=== PATIENT | female | born 1995 | race Caucasian/White ===

== ENCOUNTER → 2017-12-18 15:35 | Outpatient (CLI) | payer OTHER, SELFPAY ==
[2017-12-18 17:07] LABS: Follicle Stimulating Hormone 5.9 mIU/mL; Prolactin 6.6 ng/mL; Thyroid Stim Hormone (TSH) 1.62 uIU/mL (0.358-3.74)
[2017-12-21 14:16] LABS: DHEA Sulfate 295.6 ug/dL (110.0-431.7)
[2017-12-22 11:25] LABS: 17-Hydroxyprogesterone 40 ng/dL (.); Testosterone Free 2.5 pg/mL (0.0-4.2)
== END ==
PROVIDERS: Visit Provider Obstetrics & Gynecology
DX: N91.4 Secondary oligomenorrhea (principal)
CPT/HCPCS: 36415; 82627; 83001; 83498; 84146; 84402; 84443; 82626

== ENCOUNTER → 2018-09-03 10:56 | Outpatient (CLI) | payer OTHER, SELFPAY ==
[2018-09-03 10:04] VITALS: BMI 39.5
[2018-09-03 11:15] LABS: Absolute Lymphocyte Count 2.02 X10^3/ul (0.83-4.51); Absolute Neutrophil Count 5.1 X10^3/uL (2.0-7.7); Basophil# 0.02 X10^3/uL; Basophil% 0.3 % (0-1); Eosinophil# 0.16 X10^3/uL; Hematocrit 42.3 % (37-47); Lymphocyte # 2.02 X10^3/ul (4.0); Lymphocyte % 25.9 % (19-41); Mean Corp Hgb Conc 33.1 g/gl (32-36); Mean Corpuscular Volume 87.6 fL (81-99); Mean Platelet Vol. 10.4 fl (6.2-12.0); Monocyte# 0.51 X10^3/uL; Monocyte% 6.5 % (0-10); Neutrophil # 5.09 X10^3/uL (2.7-7.7); Neutrophil % 65.2 % (47-70); POSITIVE COUNT NO; POSITIVE DIFFERENTIAL NO; POSITIVE MORPHOLOGY NO; Platelet Count 355 K/mm3 (150-450); RBC Distribution Width CV 12.9 % (11.6-14.6); RBC Distribution Width SD 41.5 fl (35.1-43.9); Red Blood Count 4.83 M/mm3 (4.2-5.4); White Blood Count 7.8 K/mm3 (4.4-11.0)
[2018-09-03 11:23] LABS: Glucose Challenge Gest 1H 50g 114 mg/dL (70-140)
[2018-09-03 12:36] LABS: HIV - WCH Non-Reactive (Nonreactive); Rubella IgG 141.9 IU/mL
[2018-09-03 20:47] LABS: Chlamydia Trachomatis by PCR Negative (Negative); Neisserai gonorrhoeae by PCR Negative (Negative); Probe Check PASS; Sample Adequacy Control PASS; Specimen Processing Control PASS
[2018-09-04 07:43] LABS: HEPATITIS B SURFACE AG Negative (Negative)
[2018-09-05 04:55] LABS: Rapid Plasmin Reagin (RPR) NONREACTIVE (NONREACTIVE)
[2018-09-09 10:30] LABS: HPV Reflexed? NOT INDICATED
--- OUTSIDE RECORDS SUMMARY | 2018-10-20 13:22 | XMS RPT_ITS ---
:1995 Author Organization OHIP Support Name Relationship Address Phone [employer] Unavailable [address] + [place] [address] CLARA SURESH Unavailable [address] + [address] [place] [address] HO QUACH Unavailable 0 + [place] [address] [employer] Unavailable [address] + [place] [address] CLARA SURESH Unavailable [address] + [address] [place] [address] PHILOMENA HO Unavailable 0 + [place] [address] SURESH ELIZABETH Unavailable Unavailable + [employer] Unavailable [address] + [place] [address] CLARA SURESH Unavailable [address] + [address] [place] [address] PHILOMENA HO Unavailable 0 + [place] [address] [employer] Unavailable [address] + [place] [address] CLARA SURESH Unavailable [address] + [address] [place] [address] PHILOMENA HO Unavailable 0 + [place] [address] [employer] Unavailable [address] [place] [address] CLARA SURESH Unavailable [address] + [address] [place] [address] [employer] Unavailable [address] [place] [address] CLARA SURESH Unavailable [address] + [address] [place] [address] [employer] Unavailable [address] [place] [address] SURESH ELIZABETH Unavailable [address] + [address] [place] [address] [employer] Unavailable [address] [place] [address] SURESH ELIZABETH Unavailable [address] + [address] [place] [address] Care Team Providers Name Role Phone Maria D Reagan Attending Unavailable DOCTOR, OUT OF TOWN Referring Unavailable KELIN HANNAH Primary Care Unavailable Maria D Reagan Attending Unavailable Hector, Maria D Referring Unavailable KELIN HANNAH Primary Care Unavailable Maria D Reagan Attending Unavailable DOCTOR, OUT OF TOWN Referring Unavailable KELIN HANNAH Primary Care Unavailable Hector, Maria D Attending Unavailable DOCTOR, OUT OF TOWN Referring Unavailable Maria D Reagan Attending Unavailable Hector, Maria D Referring Unavailable KELIN HANNAH Primary Care Unavailable Maria D Reagan Attending Unavailable DOCTOR, OUT OF TOWN Referring Unavailable Rohan Renteria Attending Unavailable DOCTOR, OUT OF TOWN Referring Unavailable Presleyanthony, Maria D Attending Unavailable DOCTOR, OUT OF TOWN Referring Unavailable TRILLJADYNSÁNCHEZ C (BUSINESS ADMINISTRATION PROFESSOR) Attending Unavailable TRILL, SÁNCHEZ C (BUSINESS ADMINISTRATION PROFESSOR) Referring Unavailable TRILL, SÁNCHEZ C (BUSINESS ADMINISTRATION PROFESSOR) Attending Unavailable TRILL, SÁNCHEZ C (BUSINESS ADMINISTRATION PROFESSOR) Referring Unavailable MARCANTHONY, MARIA D E Referring Unavailable TRILL, SÁNCHEZ C Primary Care Unavailable YOANA WILLINGHAM Attending Unavailable PROBLEMS PROBLEMS DATE TYPE CONDITION / CODE ATTENDING STATUS SOURCE 09/25/2018 Unknown J32.9 - Chronic Rohan Renteria Active [place] sinusitis, Community unspecified / Hospital J32.9(ICD-10) Repository 09/25/2018 Unknown J06.9 - Acute upper Rohan Renteria Active [place] respiratory Community infection, Hospital unspecified / Repository J06.9(ICD-10) 09/22/2018 Unknown Z3A.08 - 8 weeks Marcanthcisco, Active [place] gestation of Maria D Community / Hospital Z3A.08(ICD-10) Repository 09/12/2018 Active Other specified NA Active [facility] Other disorders of vagina / [place] N89.8(ICD-10) Repository 09/12/2018 Active Candidiasis of vulva SÁNCHEZ BEGUM Active [place] and [facility] / [facility] ([facility]) Clinic Other B37.3(ICD-10) [place] Repository 09/04/2018 Unknown Z34.90 - Encounter Hector, Active [place] for supervision of [facility] normal , Hospital unspecified, Repository unspecified trimester / Z34.90(ICD-10) 09/03/2018 Unknown Z12.4 - Encounter for [place], Active [place] screening for [facility] malignant neoplasm of Hospital cervix / Repository Z12.4(ICD-10) 08/26/2018 Active Diarrhea, unspecified SÁNCHEZ BEGUM Active [facility] / R19.7(ICD-10) [facility] (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 Result Comment: This test was developed and its performance characteristics determined by [facility] ([facility] It has not been cleared or approved by the FDA. -[facility] is regulated under CLIA as qualified to perform high-complexity testing. This test is used for clinical purposes. It should not be regarded as inv estigational or for research. Performed By: #### GASPCR #### [facility] [address] [place], [place] [address] PROGRESS Observed: 09/28/2018 Status: COMPLETED Source: [place] 12:55 PM [facility] REPOSITORY HNO ID: [id number] Author: Kaelyn (Dakota) Farheen Service: (none) Author Type: Nurse Practitioner Type: Progress Notes Filed: 09/28/2018 1:19 PM Note Text: Subjective The history is provided by the patient. No hourly sign language interpreter was used. HPI Casie Elizabeth is a 23 year old female who presents today for CC of sore throat. This started 4 days ago. She is also having right ear pain and pressure. She also has nasal congestion. She is 8.4 weeks pregant. She has only used tylenol sparingly. 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 BP 122/76 Pulse 95 Temp 36.2 ?C (97.1 ?F) (Tympanic) Resp 16 Wt 100.7 kg (222 lb) SpO2 97% BMI 38.11 kg/m? Social History Marital status: Single Spouse name: Years of education: Number of children: Social History Main Topics Smoking status: Former Smoker Packs/day: 0.00 Years: 0.00 Quit date: 08/17/2018 Smokeless tobacco: Never Used Alcohol use: No Drug use: No PAST MEDICAL HISTORY Diagnosis Date - GERD (gastroesophageal reflux disease) - IBS (irritable bowel syndrome) 2016 Dr. Lake - Obesity I have confirmed and edited as necessary, the [facility] Review of Systems Constitutional: Negative for chills and fever. HENT: Negative for congestion, ear pain, sinus pain and sore throat. Respiratory: Negative for cough. Musculoskeletal: Negative for myalgias. Neurological: Negative for headaches. Objective Physical Exam Constitutional: She is well-developed, well-nourished, and in no distress. HENT: Head: Normocephalic and atraumatic. Right Ear: External ear and ear canal normal. Tympanic membrane is bulging. Tympanic membrane is not erythematous and not retracted. A middle ear effusion (serous) is present. Left Ear: Tympanic membrane and ear canal normal. Tympanic membrane is not erythematous, not retracted and not bulging. Nose: Mucosal edema and rhinorrhea present. Right sinus exhibits maxillary sinus tenderness and frontal sinus tenderness. Left sinus exhibits maxillary sinus tenderness and frontal sinus tenderness. Mouth/Throat: Uvula is midline and mucous membranes are normal. Oropharyngeal exudate (white), posterior oropharyngeal edema and posterior oropharyngeal erythema present. Pulmonary/Chest: Breath sounds normal. She has no decreased breath sounds. She has no wheezes. She has no rhonchi. She has no rales. Lymphadenopathy: Head (right side): No submental, no submandibular and no tonsillar adenopathy present. Head (left side): No submental, no submandibular and no tonsillar adenopathy present. She has cervical adenopathy. Right cervical: Superficial cervical adenopathy present. Left cervical: Superficial cervical adenopathy present. Neurological: She is alert. Skin: Skin is warm and dry. Psychiatric: Affect normal. Nursing note and vitals reviewed. ASSESSMENT/PLAN: 1. URI, acute - ICD9: 465.9, ICD10: J06.9 (primary diagnosis) - Discussed viral etiology and rationale for treatment. Rest, increase water intake Tylenol as needed for fever or pain. Salt water gargles, chloraseptic spray or lozenges as needed for sore throat. Nasal saline spray as needed Cool mist humidifier at night Flonase or Nasonex 1 spray each nostril two times a day. Call OB in the am for medication list she wants you to use. 2. Sore throat - ICD9: 462, ICD10: J02.9 - suspect viral, Only call if Strep culture is positive. - Rapid Strep negative in the office today - overnight throat culture pending - Discussed supportive care treatment with fluids, rest and analgesia. - The patient may also use warm salt water gargles, throat lozenges and/or OTC throat spray as needed. - The patient should follow up in one week if symptoms persist or worsen - Call back if drooling, increased temperature, symptoms of dehydration and/or still sick in one week - RAPID STREP TEST B/O - GROUP A STREPTOCOCCUS BY PCR * Seek medical care immediately, call 911, go to ER if you have chest pain, difficulty breathing, shortness of breath, inability to swallow. Diagnosis and treatment plan were discussed and questions were answered to the patient's satisfaction. Pt acknowledged understanding of concepts and follow up plan. Specific signs and symptoms that would indicate the need for higher level of care were discussed in detail warranting prompt ER evaluation. Kaelyn Zhong APRN.BUSINESS ADMINISTRATION PROFESSOR CNOV Observed: 09/28/2018 Status: COMPLETED Source: [place] 12:30 PM [facility] REPOSITORY Office Visit (WSTR) CASIE ELIZABETH ([id number]) 1995 F Date Time Provider Department 09/28/18 12:30 PM KAELYN ZHONG (DAKOTA) [facility] During your visit today, we recorded the following information about you: Temperature Pulse Respiration Blood pressure 97.1 degrees 95/minute 16/minute 122/76 Weight 100.7 kg Kaelyn Zhong APRN.CNP 09/28/2018 1:19 PM Signed Subjective The history is provided by the patient. No hourly sign language interpreter was used. HPI Casie Elizabeth is a 23 year old female who presents today for CC of sore throat. This started 4 days ago. She is also having right ear pain and pressure. She also has nasal congestion. She is 8.4 weeks pregant. She has only used tylenol sparingly. 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 BP 122/76 Pulse 95 Temp 36.2 ?C (97.1 ?F) (Tympanic) Resp 16 Wt 100.7 kg (222 lb) SpO2 97% BMI 38.11 kg/m? Social History Marital status: Single Spouse name: Years of education: Number of children: Social History Main Topics Smoking status: Former Smoker Packs/day: 0.00 Years: 0.00 Quit date: 08/17/2018 Smokeless tobacco: Never Used Alcohol use: No Drug use: No PAST MEDICAL HISTORY Diagnosis Date - GERD (gastroesophageal reflux disease) - IBS (irritable bowel syndrome) 2016 Dr. Lake - Obesity I have confirmed and edited as necessary, the [facility] Review of Systems Constitutional: Negative for chills and fever. HENT: Negative for congestion, ear pain, sinus pain and sore throat. Respiratory: Negative for cough. Musculoskeletal: Negative for myalgias. Neurological: Negative for headaches. Objective Physical Exam Constitutional: She is well-developed, well-nourished, and in no distress. HENT: Head: Normocephalic and atraumatic. Right Ear: External ear and ear canal normal. Tympanic membrane is bulging. Tympanic membrane is not erythematous and not retracted. A middle ear effusion (serous) is present. Left Ear: Tympanic membrane and ear canal normal. Tympanic membrane is not erythematous, not retracted and not bulging. Nose: Mucosal edema and rhinorrhea present. Right sinus exhibits maxillary sinus tenderness and frontal sinus tenderness. Left sinus exhibits maxillary sinus tenderness and frontal sinus tenderness. Mouth/Throat: Uvula is midline and mucous membranes are normal. Oropharyngeal exudate (white), posterior oropharyngeal edema and posterior oropharyngeal erythema present. Pulmonary/Chest: Breath sounds normal. She has no decreased breath sounds. She has no wheezes. She has no rhonchi. She has no rales. Lymphadenopathy: Head (right side): No submental, no submandibular and no tonsillar adenopathy present. Head (left side): No submental, no submandibular and no tonsillar adenopathy present. She has cervical adenopathy. Right cervical: Superficial cervical adenopathy present. Left cervical: Superficial cervical adenopathy present. Neurological: She is alert. Skin: Skin is warm and dry. Psychiatric: Affect normal. Nursing note and vitals reviewed. ASSESSMENT/PLAN: 1. URI, acute - ICD9: 465.9, ICD10: J06.9 (primary diagnosis) - Discussed viral etiology and rationale for treatment. Rest, increase water intake Tylenol as needed for fever or pain. Salt water gargles, chloraseptic spray or lozenges as needed for sore throat. Nasal saline spray as needed Cool mist humidifier at night Flonase or Nasonex 1 spray each nostril two times a day. Call OB in the am for medication list she wants you to use. 2. Sore throat - ICD9: 462, ICD10: J02.9 - suspect viral, Only call if Strep culture is positive. - Rapid Strep negative in the office today - overnight throat culture pending - Discussed supportive care treatment with fluids, rest and analgesia. - The patient may also use warm salt water gargles, throat lozenges and/or OTC throat spray as needed. - The patient should follow up in one week if symptoms persist or worsen - Call back if drooling, increased temperature, symptoms of dehydration and/or still sick in one week - RAPID STREP TEST B/O - GROUP A STREPTOCOCCUS BY PCR * Seek medical care immediately, call 911, go to ER if you have chest pain, difficulty breathing, shortness of breath, inability to swallow. Diagnosis and treatment plan were discussed and questions were answered to the patient's satisfaction. Pt acknowledged understanding of concepts and follow up plan. Specific signs and symptoms that would indicate the need for higher level of care were discussed in detail warranting prompt ER evaluation. DANDY Sinclair APRN.CNP 09/28/2018 1:02 PM Signed ASSESSMENT/PLAN: 1. URI, acute - ICD9: 465.9, ICD10: J06.9 (primary diagnosis) - Discussed viral etiology and rationale for treatment. Rest, increase water intake Tylenol as needed for fever or pain. Salt water gargles, chloraseptic spray or lozenges as needed for sore throat. Nasal saline spray as needed Cool mist humidifier at night Flonase or Nasonex 1 spray each nostril two times a day. Call OB in the am for medication list she wants you to use. 2. Sore throat - ICD9: 462, ICD10: J02.9 - suspect viral, Only call if Strep culture is positive. - Rapid Strep negative in the office today - overnight throat culture pending - Discussed supportive care treatment with fluids, rest and analgesia. - The patient may also use warm salt water gargles, throat lozenges and/or OTC throat spray as needed. - The patient should follow up in one week if symptoms persist or worsen - Call back if drooling, increased temperature, symptoms of dehydration and/or still sick in one week - RAPID STREP TEST B/O - GROUP A STREPTOCOCCUS BY PCR * Seek medical care immediately, call 911, go to ER if you have chest pain, difficulty breathing, shortness of breath, inability to swallow. Referring Provider: SELF [200] Allergies As of Date: 09/28/2018 (No Known Allergies) Date Reviewed: 09/28/2018 Reviewed by: Kaelyn Zhong - Fully Assessed Reason for Visit: Fever [47] Primary Visit Diagnosis:URI, acute [J06.9] Other Visit Diagnosis:Sore throat [J02.9] Order(s):RAPID STREP TEST B/O [[id number]] Order #: [id number] GROUP A STREPTOCOCCUS BY PCR [SQGASPCR] Order #: [id number] Prescriptions as of 09/28/2018 Sig: VITAMIN ORAL Take by mouth once daily. Problem List As Of Date 09/28/2018 Noted Resolved Obesity [E66.9] GERD (gastroesophageal reflux disease) [K21.9] Lactose intolerance [E73.9] INVALID FOR* Other instructions from your clinician: ASSESSMENT/PLAN: 1. URI, acute - ICD9: 465.9, ICD10: J06.9 (primary diagnosis) - Discussed viral etiology and rationale for treatment. Rest, increase water intake Tylenol as needed for fever or pain. Salt water gargles, chloraseptic spray or lozenges as needed for sore throat. Nasal saline spray as needed Cool mist humidifier at night Flonase or Nasonex 1 spray each nostril two times a day. Call OB in the am for medication list she wants you to use. 2. Sore throat - ICD9: 462, ICD10: J02.9 - suspect viral, Only call if Strep culture is positive. - Rapid Strep negative in the office today - overnight throat culture pending - Discussed supportive care treatment with fluids, rest and analgesia. - The patient may also use warm salt water gargles, throat lozenges and/or OTC throat spray as needed. - The patient should follow up in one week if symptoms persist or worsen - Call back if drooling, increased temperature, symptoms of dehydration and/or still sick in one week - RAPID STREP TEST B/O - GROUP A STREPTOCOCCUS BY PCR * Seek medical care immediately, call 911, go to ER if you have chest pain, difficulty breathing, shortness of breath, inability to swallow. Encounter Status:Closed by KAELYN ZHONG CNP on 09/28/18 URGENT CARE VISIT Observed: 09/25/2018 Status: F Source: [place] REPORT 4:54 PM [facility] REPOSITORY [facility] [address] [place] [address] OFFICE VISIT Date of Service: 09/25/18 MR#: [id number] Acct: [id number] Name: CASIE ELIZABETH Rep #: [id number] : 1995 Provider: Rohan SIDHU Age/Sex: 23/F Location: [facility] Status: Signed Intake Intake Visit Reasons: Sinus infection Chief Complaint: Possible sinus infection? 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 Details: CASIE ELIZABETH, is a 23 F who presents to the office today for initial evaluation approximately 2-3-day history of congestion/facial pressure and postnasal drip. No complaints of fever, chills, sweats, rash, cough, chest pain/shortness of breath. Patient is a non-smoker, is currently , and notes no other members in household with similar complaints. She has taken wrkq-cjn-ohqckui products with the exception of Tylenol to assist with symptoms. She notes no other associated symptoms and no other alleviating or aggravating factors. ROS Const Constitutional: No other (ROS negative x10 other than as noted above) Exam Const General: cooperative, healthy appearing, no acute distress, comfortable Nutritional Appearance: obese Orientation: alert, awake, oriented x3 HENMT Head: normal to inspection Ears: hearing grossly normal bilaterally, external ears normal, TM's normal bilaterally, EAC's normal Nose: external nose normal, nares normal, septum normal, nasal discharge clear Face and sinus: normal facial exam, sinuses nontender, face symmetric Mouth: tongue normal, lip normal, oral mucosae normal Teeth and gingiva: dentition normal, gingiva normal Throat: uvula midline, tonsils normal, posterior oropharynx normal, no postnasal drainage Eyes General: appearance normal, both eyes and all related structures Neck Neck: normal visual inspection, full ROM, no lymphadenopathy, no meningeal signs, supple Neck mass: No Thyroid: thyroid normal Lymphatic: no lymphadenopathy noted Chest Chest palpation AND inspection: normal inspection of the chest Resp Effort AND Inspection: normal respiratory effort, able to speak in complete sentences, symmetric chest movement, no cough Auscultation: Bilateral: Clear to Auscultation Cardio Palpation: normal PMI Rate: regular rate Rhythm: regular rhythm Heart Sounds: S1 normal, S2 normal, no gallops, no murmurs, no rubs Pulses: radial pulses present GI Inspection: normal to inspection Palpation: soft, no hepatosplenomegaly Skin General: no rashes or lesions noted Neuro General: alert, awake, oriented x3, gait normal Cognition: normal cognition Speech: speech normal Gait: normal gait Motor: muscle tone normal throughout Sensory Exam: no sensory deficits noted Psych Appearance: grossly normal Mental Status: mental status grossly normal Mood: congruent mood Affect: normal affect Speech and Movement: speech and movement normal Attitude: cooperative Thought Process: normal Thought Content: normal Judgment: judgment good Assessment AND Plan 1. Sinusitis J32.9 2. URI (upper respiratory infection) J06.9 Plan Clear fluids, rest, Tylenol as needed for symptomatic relief. Follow-up with PCP in 10-14 days should symptoms not improve, sooner should symptoms worsen or any other concerns develop. Patient states acknowledging understanding all the above. This note was generated with LookTrackeration software. It may contain incorrect words, spelling, and punctuation that were not noted in checking the note before signing. 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 [place] [address] OFFICE VISIT Date of Service: 09/22/18 MR#: [id number] Acct: [id number] Name: CASIE ELIZABETH Rep #: [id number] : 1995 Provider: Maria D Reagan MD Age/Sex: 23/F Location: [facility] [place] Status: Signed Intake Vital Signs09/22/18 Body Mass Index (BMI) 39.5 09/22/18 Height 5 ft 4 in 09/22/18 Weight: 226 lb 09/22/18 Body Mass Index (BMI) 38.7 09/22/18 Blood Pressure 114/66 Intake Visit Reasons: 8 weeks Supervisor [employer] Required: No Is patient in pain?: No Allergies No Known Allergies Allergy (Verified 09/22/18 12:31) Medications vitamin#30 30 mg iron-10 mg iron-folic acid 1 mg- omg3 capsule cap PO cap 09/03/18 [History Confirmed 09/22/18] Last Menstral Period: 07/11/18 Zika: Zika virus screening: Negative : No PFSH PFSH Social History Smoking Status: Light Smoker (<10/day) alcohol intake: never details: social substance use type: does not use caffeine: Yes what type of physical activity do you participate in: none seatbelt use: always do you feel safe at home: Yes additional social history: 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 OB Visit [facility] Calculator Estimated Delivery Date Based on Ultrasound Date Current WG 10w 3d Number 1 Expected Delivery Route/Plan Specific Issue/Plans flu vaccine: given tdap vaccine: [] rhogam: [] LARC form signed: [] labor support person: [] pain management: [] cut cord/dad catch: [] : [] PP control planned: [] discussed possible routes of delivery and associated risks: [] special requests: [] Initial Weight: Not Recorded Date Weight BP Urine PrFHR FuHt Pres MoCTX DilationFetal StVisit NoProviderComments E ot v te GA G Effac lucose ed ACOG First Trimester First Trimester: Discussed Diagnostics Diagnostics Labs Blood Type A POSITIVE 09/03/18 Antibody Screen NEGATIVE 09/03/18 Hct 42.3 % (37-47) 09/03/18 Hgb 14.0 g/dl (12.0-15.0) 09/03/18 Rubella IgG Antibody 141.9 IU/mL 09/03/18 RPR NONREACTIVE (NONREACTIVE) 09/03/18 Hep Bs Antigen Negative (Negative) 09/03/18 Chlam trachomat DNA PCR Negative (Negative) 09/03/18 N.gonorrhoeae DNA (PCR) Negative (Negative) 09/03/18 Glucose 1 Hr 50 gm 114 mg/dL (70-140) 09/03/18 Details: HIV: Urine Culture: Sequential Screen: NIPT Screen: Results [id number] Office Urine Glucose Negative Last Edit by Monica Godfrey on 09/22/18 12:30 Office Urine Protein Negative Last Edit by Monica Godfrey on 09/22/18 12:30 Assessment AND Plan Problems 1. 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 Obesity affecting in first trimester O99.211 1 tm glucola, discussed healthy weight gain 3. Supervision of high risk , antepartum O09.90 MADISON Suresh 4. 8 weeks gestation of Z3A.08 genetic, ntd, and carrier screening discussed. Plan ACOG trimester education reviewed and updated. see problem list details for updated plan management information and see below for orders placed at this visit. GA appropriate handout given. 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 Trimester: first trimester Obesity affecting in first trimester O99.211 Trimester: first trimester Supervision of high risk , antepartum O09.90 8 weeks gestation of Z3A.08 Weeks of gestation: 8 weeks 09/22/18 1339 <Electronically signed by Maria D Reagan MD> Date Maria D Reagan MD Cosigner Signature: Date (if applicable) CC: RAPID BACT.VAGINOSIS Collected: 09/12/2018 Status: F Source: [facility] 12:00 PM [facility] REPOSITORY TYPE CODE TESTS RESULT OUT OF RANGE REFERENCE UNITS LAB RAPBV(LOINC ) Rapid see below Bact.Vaginos is Result Comment: Negative for the presence of bacterial vaginosis. Performed By: #### RAPBV #### [facility] [address] [place], [place] [address] Observed: 09/12/2018 Status: F Source: [facility] CULT FUNGAL 12:00 PM HEALTH SYSTEM REPOSITORY Test performed at [facility] ORGANISM: Edilma albicans (ID: 1) Moderate Performed By: #### C_FUN #### [facility] [address] [place], [place] [address] PROGRESS Observed: 09/12/2018 Status: COMPLETED Source: [facility] 11:59 AM [facility] REPOSITORY HNO ID: [id number] Author: Sánchez Herrera (Election Assistant) Caitlin Service: (none) Author Type: Nurse Practitioner Type: Progress Notes Filed: 09/22/2018 2:00 PM Note Text: Subjective HPI Casie Elizabeth is a 23 year old female here today for vaginal discharge and itching. I reviewed past medical, surgical, social, and family histories today and updated chart. Allergies, chronic medications, and supplements were also reviewed. Vaginal discharge - looks clear Always wet down there Pee is bright yellow Vaginal itching Randomly has vaginal pain, sharp pain for 5-10 seconds Cramping Feeling nauseated Currently Dr. Reagan - SHAREPOINT DEVELOPER Review of Systems Constitutional: Negative for chills, diaphoresis, fever and malaise/fatigue. Gastrointestinal: Positive for abdominal pain and nausea. Negative for constipation, diarrhea and vomiting. Genitourinary: Negative for dysuria, flank pain, frequency, hematuria and urgency. Skin: Positive for itching. Neurological: Negative for dizziness, weakness and headaches. BP 94/68 Pulse 66 Temp 36.8 ?C (98.3 ?F) (Oral) Resp 16 Wt 96.8 kg (213 lb 6.4 oz) BMI 36.63 kg/m? Objective Physical Exam Constitutional: She is oriented to person, place, and time and well-developed, well-nourished, and in no distress. She appears not jaundiced. Non-toxic appearance. HENT: Head: Normocephalic and atraumatic. Hair is normal. Right Ear: External ear normal. Left Ear: External ear normal. Nose: Nose normal. Mouth/Throat: Oropharynx is clear and moist and mucous membranes are normal. Eyes: Pupils are equal, round, and reactive to light. Conjunctivae and lids are normal. Neck: Normal range of motion. Neck supple. Cardiovascular: Normal rate, regular rhythm, normal heart sounds and intact distal pulses. Pulmonary/Chest: Effort normal and breath sounds normal. Genitourinary: Vulva exhibits erythema (mild). Vulva exhibits no exudate, no lesion and no rash. Thin white and vaginal discharge found. Musculoskeletal: Normal range of motion. Lymphadenopathy: She has no cervical adenopathy. Neurological: She is alert and oriented to person, place, and time. Gait normal. Skin: Skin is warm and dry. No rash noted. She is not diaphoretic. No cyanosis or erythema. No pallor. Nails show no clubbing. Psychiatric: Memory, affect and judgment normal. ASSESSMENT/PLAN: 1. Candidal vaginitis - ICD9: 112.1, ICD10: B37.3 (primary diagnosis) Clinical diagnosis, vaginal swabs pending Treat with topical miconazole 2% cream, nightly x 7 days Return to your SHAREPOINT DEVELOPER for worsening/persistent symptoms 2. Vaginal discharge - ICD9: 623.5, ICD10: N89.8 Vaginal swabs obtained - RAPID BACT VAGINOSIS - ORGANISM ID YEAST (LAB USE ONL Sánchez Begum APRN.DAKOTA CNOV Observed: 09/12/2018 Status: COMPLETED Source: [facility] 11:40 AM [facility] REPOSITORY Office Visit (MARIVEL) CASIE ELIZABETH ([id number]) 1995 F Date Time Provider Department 09/12/18 11:40 AM SÁNCHEZ BEGUM (DAKOTA) MARIVEL During your visit today, we recorded the following information about you: Temperature Pulse Respiration Blood pressure 98.3 degrees 66/minute 16/minute 94/68 Weight 96.8 kg Riccardo Price CMA 09/12/2018 11:56 AM Addendum Patient complains of vaginal itching/burning started 1+ weeks ago. No fever. CELSO Malagon APRN.BUSINESS ADMINISTRATION PROFESSOR 09/22/2018 2:00 PM Signed Subjective HPI Casie Elizabeth is a 23 year old female here today for vaginal discharge and itching. I reviewed past medical, surgical, social, and family histories today and updated chart. Allergies, chronic medications, and supplements were also reviewed. Vaginal discharge - looks clear Always wet down there Pee is bright yellow Vaginal itching Randomly has vaginal pain, sharp pain for 5-10 seconds Cramping Feeling nauseated Currently Dr. Reagan - SHAREPOINT DEVELOPER Review of Systems Constitutional: Negative for chills, diaphoresis, fever and malaise/fatigue. Gastrointestinal: Positive for abdominal pain and nausea. Negative for constipation, diarrhea and vomiting. Genitourinary: Negative for dysuria, flank pain, frequency, hematuria and urgency. Skin: Positive for itching. Neurological: Negative for dizziness, weakness and headaches. BP 94/68 Pulse 66 Temp 36.8 ?C (98.3 ?F) (Oral) Resp 16 Wt 96.8 kg (213 lb 6.4 oz) BMI 36.63 kg/m? Objective Physical Exam Constitutional: She is oriented to person, place, and time and well-developed, well-nourished, and in no distress. She appears not jaundiced. Non-toxic appearance. HENT: Head: Normocephalic and atraumatic. Hair is normal. Right Ear: External ear normal. Left Ear: External ear normal. Nose: Nose normal. Mouth/Throat: Oropharynx is clear and moist and mucous membranes are normal. Eyes: Pupils are equal, round, and reactive to light. Conjunctivae and lids are normal. Neck: Normal range of motion. Neck supple. Cardiovascular: Normal rate, regular rhythm, normal heart sounds and intact distal pulses. Pulmonary/Chest: Effort normal and breath sounds normal. Genitourinary: Vulva exhibits erythema (mild). Vulva exhibits no exudate, no lesion and no rash. Thin white and vaginal discharge found. Musculoskeletal: Normal range of motion. Lymphadenopathy: She has no cervical adenopathy. Neurological: She is alert and oriented to person, place, and time. Gait normal. Skin: Skin is warm and dry. No rash noted. She is not diaphoretic. No cyanosis or erythema. No pallor. Nails show no clubbing. Psychiatric: Memory, affect and judgment normal. ASSESSMENT/PLAN: 1. Candidal vaginitis - ICD9: 112.1, ICD10: B37.3 (primary diagnosis) Clinical diagnosis, vaginal swabs pending Treat with topical miconazole 2% cream, nightly x 7 days Return to your SHAREPOINT DEVELOPER for worsening/persistent symptoms 2. Vaginal discharge - ICD9: 623.5, ICD10: N89.8 Vaginal swabs obtained - RAPID BACT VAGINOSIS - ORGANISM ID YEAST (LAB USE ONL Sánchez Begum APRN.BUSINESS ADMINISTRATION PROFESSOR Referring Provider: SELF [200] Allergies As of Date: 09/12/2018 (No Known Allergies) Date Reviewed: 09/12/2018 Reviewed by: Riccardo Price - Fully Assessed Reason for Visit: Pain [78] Primary Visit Diagnosis:Candidal vaginitis [B37.3] Other Visit Diagnosis:Vaginal discharge [N89.8] Order(s):[] miconazole (MICONAZOLE 7) 2 % vaginal creamUse 1 Applicator vaginally daily at bedtime for 7 days.Disp: 45 gRfl: 0 RAPID BACT VAGINOSIS [[id number]] Order #: [id number] ORGANISM ID YEAST (LAB USE ONL [SQOIDYEA] Order #: [id number] Prescriptions as of 09/12/2018 Sig: VITAMIN ORAL Take by mouth once daily. MICONAZOLE NITRATE 2 % VAGINA* Use 1 Applicator vaginally da* Problem List As Of Date 09/12/2018 Noted Resolved Obesity [E66.9] GERD (gastroesophageal reflux disease) [K21.9] Lactose intolerance [E73.9] INVALID FOR* Visit Notes: >> Riccardo Price SatSep 12, 2018 11:48 AM Status: Addendum Patient complains of vaginal itching/burning started 1+ weeks ago. No fever. Riccardo Price CMA Prescriptions ordered this encounter Disp Refills Start End MICONAZOLE NITRATE 2 % VAGINAL CREAM 45 g 0 09/12/2018 09/19/2018 Route: VAGINAL Sig: Use 1 Applicator vaginally daily at bedtime for 7 days. Disposition: Return if symptoms worsen or fail to improve. Follow-up and Disposition History [place] [address] Dept Dept Sánchez Begum APRN.CNP [facility] -[address] [place] [id number] - - September 12, 2018 Casie Elizabeth [address] [place] [id number] 1995 To Whom It May Concern: This is to certify that Casie has been under my care and had appointment today. If you have further questions regarding this patient's health status, please contact our office. Sincerely, Sánchez Begum CNP (Signed electronically to expedite mailing) Encounter Status:Closed by SÁNCHEZ BEGUM CNP on 09/22/18 ROCKET MOTOR TESTER OFFICE VISIT Observed: 09/03/2018 Status: F Source: [facility] 11:17 PM [facility] REPOSITORY [facility] 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 [employer] Storage Required: No Is patient in pain?: No Allergies No Known Allergies Allergy (Verified 09/03/18 10:02) Medications vitamin#30 30 mg iron-10 mg iron-folic acid 1 mg- omg3 capsule cap PO cap 09/03/18 [History Confirmed 09/03/18] Last Menstral Period: 07/11/18 Zika: Zika virus screening: Negative : No PFSH PFSH Social History Smoking Status: Light Smoker (<10/day) alcohol intake: never details: social substance use type: does not use caffeine: Yes what type of physical activity do you participate in: none seatbelt use: always do you feel safe at home: Yes additional social history: 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 OB Visit Comments: Limited transvaginal ultrasound performed to confirm EDC and viability. CRL is not seen which is not consistent with LMP. no yolk sac present, gs measuring 6mm. questionable endocervical 1 cm cystic structure seen, no abnormal bloodflow around it. recommend further imaging by MFM to rule out abnormality Menstrual History Last Menstral Period: 07/11/18 Reported LMP: definite Normal amount/duration: Yes On hormonal BC at conception: No Antepartum Record Genetic Screening: Congenital Heart Defect: Other, Neural Tube Defect: Other, Hemoglobinopathy Or Carrier: Other, Cystic Fibrosis: Other, Chromosome Abnormality: Other, Andi-Sachs: Other, Hemophilia: Other, Intellectual Disability/Autism: Other, Recurrent Loss/Stillbirth: Partner, Other Structural Defect: Other, Other Genetic Disease: Other, Maternal Metabolic Disorder: Other Comments/Counseling: aunt born with CP, lost second cousin at Infection History: Live with someone with TB or Exposed to TB: No, Patient or Partner has history of Genital Herpes: No, Rash or Viral illness since last mentrual period: No, Prior GBS-Infected child: No, History of STD: No, HIV Infection: No, History of Hepatitis: No, Recent travel outside of [place]: No, Concern for Hep exposure: No, Varicella immune: Yes Medical History Medical History: Negative: Diabetes, Hypertension, Heart disease, Auto-immune disorder, Kidney disease/UTI, Neurologic/epilepsy, Psychiatric, Depression/ depression, Hepatitis/liver disease, Varicosities/phlebitis, Thyroid dysfunction, Trauma/domestic violence, History of blood transfusions, D (Rh) Sensitized, Pulmonary (e.g.,TB,Asthma), Seasonal allergies, Drug/latex allergies/reactions, Breast, Ski Lift Operator surgery, Operations/hospitalizations, Anesthetic complications, History of abnormal pap, Uterine anomaly/mariaelena, Infertility, Anti-retroviral treatment, Relevant family history, Other ACOG First Trimester First Trimester: Discussed ROS Const Denies fever(s), Reports system reviewed and no additional complaints, except as docu, Reports fatigue Eyes Reports system reviewed and no additional complaints, except as docu ENT Reports system reviewed and no additional complaints, except as docu Card Denies chest pain, Denies shortness of breath Resp Reports system reviewed and no additional complaints, except as docu, Denies shortness of breath, Denies cough GI Reports nausea, Denies abdominal pain Reports system reviewed and no additional complaints, except as docu Musc Reports system reviewed and no additional complaints, except as docu Skin/Breast Reports system reviewed and no additional complaints, except as docu Neuro Yes system reviewed and no additional complaints, except as docu Psych Reports system reviewed and no additional complaints, except as docu Endo Reports fatigue, Reports system reviewed and no additional complaints, except as docu Exam Const General: healthy appearing, comfortable, no acute distress Orientation: alert [facility] Head: normal to inspection, atraumatic, normocephalic Ears: external ears normal, hearing grossly normal bilaterally Nose: nares normal, external nose normal Mouth: oral mucosae normal Teeth and gingiva: dentition normal Eyes General: appearance normal, both eyes and all related structures Neck Neck: no lymphadenopathy, supple, normal visual inspection Thyroid: thyroid normal Resp Effort AND Inspection: normal respiratory effort GI Inspection: normal to inspection Palpation: soft, no hepatosplenomegaly General: bladder normal to palpation External Female Exam: normal external appearance, normal appearance of the urethra Urethra: normal appearance of the urethra Speculum Exam - Vagina: normal appearance of the vagina, normal vaginal discharge Speculum Exam - Cervix: normal appearance of the cervix Bimanual Exam- Vagina AND Uterus: bladder normal to palpation, normal bimanual exam, uterus non-tender, other Bimanual Exam- Adnexa, other: adnexae non-tender Skin General: no rashes or lesions noted Neuro Motor: muscle tone normal throughout, no movement abnormalities noted Extrem General: normal to inspection, full ROM Assessment AND Plan Problems 1. Obesity affecting in first trimester O99.211 1 tm glucola, discussed healthy weight gain 2. 8 weeks gestation of Z3A.08 genetic, ntd, and carrier screening discussed. 3. Supervision of high risk , antepartum O09.90 MADISON Suresh 4. 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 ACOG book offered to patient. Discussed routine and specially indicated labs if needed- patient consents to testing. see problem list details for plan information. Optional screening including carrier screenings, neural tube defect screening, sequential screening, and NIPT screening offered to patient and patient chose: discussed and likely declines Orders Orders: Supplemental Info ACOG book given and patient encouraged to read about nutrition, exercise, weight gain, and food avoidance in . 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 O09.01 Trimester: first trimester 09/03/18 2317 <Electronically signed by Maria D Reagan MD> Date Maria D Reagan MD Cosigner Signature: Date (if applicable) CC: CBC W/DIFF, AUTOMATED Collected: 09/03/2018 Status: F Source: [facility] 11:04 AM [facility] REPOSITORY TYPE CODE TESTS RESULT OUT OF RANGE REFERENCE UNITS LAB L100.1000 4.4-11.0 K/mm3 Normal WBC 7.8 LAB L100.1200 4.2-5.4 M/mm3 Normal RBC 4.83 LAB L100.1300 12.0-15.0 g/dl Normal HGB 14.0 LAB L100.1400 37-47 % Normal HCT 42.3 LAB L100.1500 81-99 fL Normal MCV 87.6 LAB L100.1600 27.0-32.0 pg Normal MCH 29.0 LAB L100.1700 32-36 g/gl Normal MCHC 33.1 LAB L100.1810 11.6-14.6 % Normal RDW CV 12.9 LAB L100.1820 35.1-43.9 fl Normal RDW SD 41.5 LAB L100.1900 150-450 K/mm3 Normal PLT 355 LAB L100.2000 6.2-12.0 fl Normal MPV 10.4 LAB L100.2100 47-70 % Normal NEUT% 65.2 LAB L100.2200 19-41 % Normal LY% 25.9 LAB L100.2300 0-10 % Normal MONO% 6.5 LAB L100.2400 0-5 % Normal EO% 2.0 LAB L100.2500 0-1 % Normal BASO% 0.3 LAB L100.2550 0.0-0.9 % Normal IM GRAN % 0.100 Result Comment: IG% - Immature Granulocytes (promyelocytes, myelocytes and metamyelocytes) > 1% indicates that a LEFT SHIFT is Present. LAB L100.2620 2.0-7.7 X10 3/uL Normal Absolute Neut 5.1 LAB L100.2720 0.83-4.51 X10 3/ul Normal Absolute Lymph 2.02 Performed By: #### L100.0100 #### [facility] [address] [facility] [place], [place], [id number] GLUCOSE CHALLENGE GEST Collected: 09/03/2018 Status: F Source: [facility] 1H 50G 11:04 AM [facility] REPOSITORY TYPE CODE TESTS RESULT OUT OF RANGE REFERENCE UNITS LAB L501.0250 70-140 mg/dL Normal GLU GEST 114 50g 1H Performed By: #### L501.0250 #### [facility] [address] [place], [place], [id number] TYPE AND SCREEN Collected: 09/03/2018 Status: F Source: [facility] 11:04 AM [facility] REPOSITORY Order Comment: Reason for Type AND Screen/Red Cells: TYPE CODE TESTS RESULT OUT OF RANGE REFERENCE UNITS LAB B10.0800 A Normal BLOOD TYPE GEL POSITIVE LAB B100.4000 Normal Antibody NEGATIVE Screen Performed By: #### B101.7450 #### [facility] [address] [place] [address] [place], [place], [id number] RUBELLA IGG Collected: 09/03/2018 Status: F Source: [facility] 11:04 AM [facility] REPOSITORY TYPE CODE TESTS RESULT OUT OF RANGE REFERENCE UNITS LAB L509.4000 IU/mL Normal Rubella IgG 141.9 Result Comment: Antibody results Interpretation of Immune Status < 5 IU/ml Presumed Non-immune 5 - < 10 IU/ml Equivocal > or = 10 IU/ml Presumed Immune Performed By: #### L509.4000, L3890.6005 #### [facility] [address] [place], [place], [address] HIV - [facility] Collected: 09/03/2018 Status: F Source: [facility] 11:04 AM [facility] REPOSITORY TYPE CODE TESTS RESULT OUT OF RANGE REFERENCE UNITS LAB L3890.6005 Nonreactive Normal HIV - [facility] Non-Reactive Performed By: #### L509.3999, L3890.6005 #### [facility] [place], [place], [id number] HEPATITIS B SURFACE Collected: 09/03/2018 Status: F Source: [facility] AG 11:04 AM [facility] REPOSITORY TYPE CODE TESTS RESULT OUT OF RANGE REFERENCE UNITS LAB L3100.0400 Negative Normal HB Negative SURF AG Result Comment: Performed at: [facility] [id number] Plumber Assistant: Carlos Lazar PhD, Phone: [phone] Performed By: #### L3100.0390 #### [facility] (refer to report for specific site) refer to report for address and phone number RAPID PLASMIN REAGIN Collected: 09/03/2018 Status: F Source: [facility] (RPR) 11:04 AM [facility] REPOSITORY TYPE CODE TESTS RESULT OUT OF REFERENCE UNITS RANGE LAB L700.5000 NONREACTIVE NONREACTIVE Normal RPR Performed By: #### L700.5000 #### [facility] [address] [place], [place], [id number] CT/NG [facility] BY PCR Collected: 09/03/2018 Status: F Source: [facility] 9:45 AM [facility] REPOSITORY TYPE CODE TESTS RESULT OUT OF RANGE REFERENCE UNITS LAB L8200.2100 Negative Normal Chlam Negative Trac PCR LAB L8200.2200 Negative Normal NG by Negative PCR Performed By: #### L8200.2000 #### [facility] [address] [place], [address] Observed: 09/03/2018 Status: F Source: [facility] CULTURE, URINE 9:45 AM [facility] REPOSITORY Urine Culture Below infection level. ORGANISM 1: Mixed Gram Positive Organisms [place]aque Count 1000-10,000 Performed By: #### M100.0650 #### [facility] [address] [place], [address] PAP I-G W/RFX Collected: 09/03/2018 Status: F Source: [facility] HRHPV-APTIMA 9:45 AM [facility] REPOSITORY Order Comment: CYTOLOGY INFORMATION: - CLINICAL INFORMATION: ANNUAL - DATE LMP/MENOPAUSE: N/A - COLLECTION VIAL: Thin Prep Vial - SHAREPOINT DEVELOPER SOURCE: CERVICAL - COLLECTION TECHNIQUE: CX BROOM ONLY Specimen Comment: [id number] Specimen Comment: Source.............Cervix Specimen Comment: No. of containers..01 ThinPrep Vial TYPE CODE TESTS RESULT OUT OF RANGE REFERENCE UNITS LAB L7400.0800 . Normal DIAGN Comment Result Comment: NEGATIVE FOR INTRAEPITHELIAL LESION AND MALIGNANCY. LAB L7400.0900 . Normal ADEQ Comment Result Comment: Satisfactory for evaluation. Endocervical and/or squamous metaplastic cells (endocervical component) are present. LAB L7400.1400 . Normal PERFORM Comment Result Comment: Jahaira Carroll, Spinner Open End (ASCP) LAB L7400.2575 . Normal TEST METHOD Comment Result Comment: This liquid based ThinPrep(R) pap test was screened with the use of an image guided system. LAB L7400.2600 . Normal . COMM LAB L7400.2700 . Normal PAPSMR Comment Result Comment: The Pap smear is a screening test designed to aid in the detection of premalignant and malignant conditions of the uterine cervix. It is not a diagnostic procedure and should not be used as the sole means of detecting cervical cancer. Both false-positive and false-negative reports do occur. LAB L7400.2800 . Normal HPV RFLX Comment Result Comment: The HPV DNA reflex criteria were not met with this specimen result therefore, no HPV testing was performed. Performed at: [address] [id number] Plumber Assistant: Sherrill Mcallister MD, Phone: [phone] Performed By: #### L7400.0353 #### [facility] (refer to report for specific site) refer to report for address and phone number HEMOGRAM/DIFF Collected: 08/26/2018 Status: F Source: [facility] 3:21 PM [facility] REPOSITORY TYPE CODE TESTS RESULT OUT OF REFERENCE UNITS RANGE LAB LWBC(LOINC 4.8-10.8 thou/cmm ) WBC High 12.4 LAB LRBC(LOINC 4.20-5.40 mil/cmm ) RBC 4.85 LAB LHGB(LOINC 12.0-16.0 g/dL ) Hgb 14.1 LAB LHCT(LOINC 37.0-47.0 % ) Hct 42.5 LAB LMCV(LOINC 81.0-99.0 fl ) MCV 87.6 LAB LMCH(LOINC 27.0-31.0 pg ) MCH 29.1 LAB LMCHC(LOIN 32.0-36.0 % C) MCHC 33.2 LAB LRDW(LOINC 11.5-15.9 % ) RDW 12.7 LAB LPLT(LOINC 150-400 thou/cmm ) Platelet 356 LAB LMPV(LOINC 7.1-10.5 fl ) MPV 10.4 LAB LSEGT(LOIN % C) Seg Neutrophil 68.7 LAB LLYMP(LOIN % C) Lymphocyte 24.3 LAB LMNO(LOINC % ) Monocyte 4.8 LAB DEISI(LOINC % ) Eosinophil 2.0 LAB LBASO(LOIN % C) Basophil 0.2 LAB LSEGN(LOIN 3.00-5.67 thou/cmm C) Abs. High Neut (ANC) 8.52 Result Comment: CORRECTED: Previous result = 8.51, verified at 15:38 on 08/26/18. LAB LLYMN(LOINC) 1.50-3.65 thou/cmm Abs. Lymph 3.01 LAB LMONN(LOINC) 0.20-1.00 thou/cmm Abs. [place] 0.60 LAB LEOSN(LOINC) 0.00-0.41 thou/cmm Abs. Eosin 0.25 LAB LBASN(LOINC) 0.00-0.08 thou/cmm Abs. Baso 0.02 Performed By: #### LCBCD #### [facility] [address] [place] [address] COMPREHENSIVE PANEL Collected: 08/26/2018 Status: F Source: [facility] 3:21 PM HEALTH SYSTEM REPOSITORY TYPE CODE TESTS RESULT OUT OF REFERENCE UNITS RANGE LAB TDP DISPLAYS ANALYST(LOINC) 136-145 mEq/L Low Sodium Blood 134 LAB LK(LOINC) 3.5-5.1 mEq/L Potassium Blood 3.5 LAB LCL(LOINC) 98-107 mEq/L Chloride Blood 107 LAB LCO2(LOINC 21-32 mEq/L ) CO2 Blood 27 LAB LGLU(LOINC 70-99 mg/dL ) Glucose High Blood 108 LAB LBUN(LOINC 7-25 mg/dL ) BUN Blood 9 LAB LCREA(LOIN 0.51-0.95 mg/dL C) Creatinine Blood 0.79 LAB LCA(LOINC) 8.5-10.1 mg/dL Calcium Blood 8.9 LAB LALB(LOINC 3.4-5.0 g/dL ) Albumin Blood 3.8 LAB LTP(LOINC) 6.4-8.2 g/dL Total Protein 7.4 LAB LAST(LOINC 15-37 U/L ) Low AST-SGOT Blood 13 LAB LALT(LOINC 14-63 U/L ) ALT-SGPT Blood 31 LAB LALKP(LOIN 46-116 U/L C) Alk Phosphatase 72 LAB LBILT(LOIN 0.2-1.0 mg/dL C) Total Bilirubin 0.3 LAB LANGP(LOIN 8-20 C) Low Anion Gap 3 LAB LBNCR(LOIN 10-20 C) BUN/Creatinine 11 Ratio Performed By: #### LP14 #### [facility] [address] [address] LIPASE BLOOD Collected: 08/26/2018 Status: F Source: [facility] 3:21 PM HEALTH SYSTEM REPOSITORY TYPE CODE TESTS RESULT OUT OF REFERENCE UNITS RANGE LAB LLIP(LOINC) 73-393 U/L Lipase Blood 88 Performed By: #### LLIP #### [facility] [address] [address] TSH Collected: 08/26/2018 Status: F Source: [facility] 3:21 PM HEALTH SYSTEM REPOSITORY TYPE CODE TESTS RESULT OUT OF RANGE REFERENCE UNITS LAB LTSH(LOINC) 0.34-4.82 uIU/mL TSH 1.08 Performed By: #### LTSH #### [facility] [address] [place], [place] [address] MDRD EGFR Collected: 08/26/2018 Status: F Source: [facility] 3:21 PM HEALTH SYSTEM REPOSITORY TYPE CODE TESTS RESULT OUT OF RANGE REFERENCE UNITS LAB LGFRF(LOINC >60mL/min/1.73m ) 2 eGFR >60 Result Comment: If the patient is , multiply the result by 1.210. Performed By: #### LGFR #### [facility] [address] [place], [place] [address] PROGRESS Observed: 08/26/2018 Status: COMPLETED Source: [facility] 2:52 PM [facility] REPOSITORY HNO ID: [id number] Author: Sánchez Herrera (Election Assistant) Caitlin Service: (none) Author Type: Nurse Practitioner Type: Progress Notes Filed: 09/02/2018 6:30 PM Note Text: Subjective HPI Casie Elizabeth is a 23 year old female here today for diarrhea, abdominal pain. I reviewed past medical, surgical, social, and family histories today and updated chart. Allergies, chronic medications, and supplements were also reviewed. Abdominal pain and diarrhea has been a chronic problem. Started years ago. She has lower abdominal cramping, diarrhea, and stool urgency. Becoming a problem at work. She was seeing Dr. Lake, GI specialist, in [place] for some time. Was on a few different medications and nothing seemed to help. Went dairy free for 6 months and no better. Stopped gluten and this helped a lot. Then came back about a month ago. And she is still gluten free. Never had colonoscopy. No blood in stool. She has been trying to get . Had positive test yesterday. Very excited. Last month - bad heartburn, breast tenderness PAST MEDICAL HISTORY Diagnosis Date - GERD (gastroesophageal reflux disease) - IBS (irritable bowel syndrome) 2016 Dr. Lake - Obesity PAST SURGICAL HISTORY Procedure Laterality Date - NONE ALLERGIES Patient has no known allergies. MEDICATIONS No prescriptions on file. FAMILY HISTORY Problem Relation Age of Onset - Breast Cancer Maternal Grandmother Social History Substance Use Topics - Smoking status: Current Every Day Smoker - Smokeless tobacco: Never Used - Alcohol use No Review of Systems Constitutional: Negative for chills, diaphoresis, fever, malaise/fatigue and weight loss. Respiratory: Negative for cough, shortness of breath and wheezing. Cardiovascular: Negative for chest pain, palpitations and leg swelling. Gastrointestinal: Positive for abdominal pain, blood in stool, diarrhea, heartburn and nausea. Negative for constipation and vomiting. Genitourinary: Positive for frequency. Negative for dysuria, hematuria and urgency. Musculoskeletal: Negative for back pain and myalgias. Skin: Negative for itching and rash. Neurological: Positive for headaches (Hisotry of migraines). Negative for dizziness and weakness. Psychiatric/Behavioral: Negative for depression. The patient is not nervous/anxious. BP 120/70 Pulse 100 Temp 36.7 ?C (98.1 ?F) Resp 16 Ht 162.6 cm (5' 4) Wt 105.4 kg (232 lb 6.4 oz) BMI 39.89 kg/m? Objective Physical Exam Constitutional: She is oriented to person, place, and time and well-developed, well-nourished, and in no distress. Non-toxic appearance. Cardiovascular: Normal rate, regular rhythm and normal heart sounds. No murmur heard. Pulmonary/Chest: Effort normal and breath sounds normal. She has no wheezes. She has no rales. Abdominal: Soft. Bowel sounds are normal. She exhibits no distension, no abdominal bruit and no mass. There is no hepatosplenomegaly. There is no tenderness. There is no CVA tenderness. Neurological: She is oriented to person, place, and time. She has normal motor skills and normal sensation. She displays no weakness. Gait normal. Skin: Skin is warm and dry. No bruising and no rash noted. Component Latest Ref Rng AND Units 08/26/2018 WBC 4.8 - 10.8 thou/cmm 12.4 (H) RBC 4.20 - 5.40 mil/cmm 4.85 HGB 12.0 - 16.0 g/dL 14.1 Hematocrit 37.0 - 47.0 % 42.5 MCV 81.0 - 99.0 fl 87.6 MCH 27.0 - 31.0 pg 29.1 MCHC 32.0 - 36.0 % 33.2 RDW 11.5 - 15.9 % 12.7 Platelet Count 150 - 400 thou/cmm 356 MPV 7.1 - 10.5 fl 10.4 Seg Neutrophil % 68.7 Lymphocyte % 24.3 Monocyte % 4.8 Eosinophil % 2.0 Basophil % 0.2 Abs. Neut(Anc) 3.00 - 5.67 thou/cmm 8.52 (H) Abs. Lymph 1.50 - 3.65 thou/cmm 3.01 Abs. [place] 0.20 - 1.00 thou/cmm 0.60 Abs. Eosin 0.00 - 0.41 thou/cmm 0.25 Abs. Baso 0.00 - 0.08 thou/cmm 0.02 Sodium 136 - 145 mEq/L 134 (L) Potassium 3.5 - 5.1 mEq/L 3.5 Chloride 98 - 107 mEq/L 107 CO2 21 - 32 mEq/L 27 Glucose 70 - 99 mg/dL 108 (H) BUN 7 - 25 mg/dL 9 Creatinine 0.51 - 0.95 mg/dL 0.79 Calcium 8.5 - 10.1 mg/dL 8.9 Albumin 3.4 - 5.0 g/dL 3.8 Protein, Total 6.4 - 8.2 g/dL 7.4 AST 15 - 37 U/L 13 (L) ALT 14 - 63 U/L 31 Alkaline Phosphatase 46 - 116 U/L 72 Bilirubin, Total 0.2 - 1.0 mg/dL 0.3 Anion Gap 8 - 20 3 (L) BUN/CREATININE RATIO 10 - 20 11 Lipase 73 - 393 U/L 88 TSH 0.34 - 4.82 uIU/mL 1.08 eGFR >60mL/min/1.73m2 >60 ASSESSMENT/PLAN: 1. Diarrhea, unspecified type - ICD9: 787.91, ICD10: R19.7 Labs WNL - elevated WBC likely related to being Check stool studies Would recommend GI follow-up and possibly further imaging/work up after Continue care with OB - CBC + DIFF - COMP METABOLIC PANEL - LIPASE BLD - TSH BLD - C. DIFFICILE PCR - FECAL OCCULT BLOOD TEST - OVA + PARA MICROSCOPIC - STOOL CULTURE/EIA US abdomen 10/18/15 = Normal Sánchez Begum, COMPUTER ENGINEERING PROFESSOR.BUSINESS ADMINISTRATION PROFESSOR CNOV Observed: 08/26/2018 Status: COMPLETED Source: [facility] 2:20 PM [facility] REPOSITORY Office Visit (AGFAMPLE) CASIE ELIZABETH ([id number]) 1995 F Date Time Provider Department 08/26/18 2:20 PM SÁNCHEZ BEGUM ([facility]) AGFAMPSTEFAN During your visit today, we recorded the following information about you: Temperature Pulse Respiration Blood pressure 98.1 degrees 100/minute 16/minute 120/70 Weight Height 105.4 kg 1.626 m Lupis Lui CMA 08/26/2018 2:48 PM Signed Abnormal BM, saw Dr Lake, tried 6 different medications, nothing was helping. Took OTC anti diarrhea medication, which helped a little. Just found out she was and can no longer take the OTC medicine she was taking. CELSO Toussaint, COMPUTER ENGINEERING PROFESSOR.[facility] 09/02/2018 6:30 PM Signed Subjective HPI Casie Elizabeth is a 23 year old female here today for diarrhea, abdominal pain. I reviewed past medical, surgical, social, and family histories today and updated chart. Allergies, chronic medications, and supplements were also reviewed. Abdominal pain and diarrhea has been a chronic problem. Started years ago. She has lower abdominal cramping, diarrhea, and stool urgency. Becoming a problem at work. She was seeing Dr. Lake, GI specialist, in [place] for some time. Was on a few different medications and nothing seemed to help. Went dairy free for 6 months and no better. Stopped gluten and this helped a lot. Then came back about a month ago. And she is still gluten free. Never had colonoscopy. No blood in stool. She has been trying to get . Had positive test yesterday. Very excited. Last month - bad heartburn, breast tenderness PAST MEDICAL HISTORY Diagnosis Date - GERD (gastroesophageal reflux disease) - IBS (irritable bowel syndrome) 2016 Dr. Lake - Obesity PAST SURGICAL HISTORY Procedure Laterality Date - NONE ALLERGIES Patient has no known allergies. MEDICATIONS No prescriptions on file. FAMILY HISTORY Problem Relation Age of Onset - Breast Cancer Maternal Grandmother Social History Substance Use Topics - Smoking status: Current Every Day Smoker - Smokeless tobacco: Never Used - Alcohol use No Review of Systems Constitutional: Negative for chills, diaphoresis, fever, malaise/fatigue and weight loss. Respiratory: Negative for cough, shortness of breath and wheezing. Cardiovascular: Negative for chest pain, palpitations and leg swelling. Gastrointestinal: Positive for abdominal pain, blood in stool, diarrhea, heartburn and nausea. Negative for constipation and vomiting. Genitourinary: Positive for frequency. Negative for dysuria, hematuria and urgency. Musculoskeletal: Negative for back pain and myalgias. Skin: Negative for itching and rash. Neurological: Positive for headaches (Hisotry of migraines). Negative for dizziness and weakness. Psychiatric/Behavioral: Negative for depression. The patient is not nervous/anxious. BP 120/70 Pulse 100 Temp 36.7 ?C (98.1 ?F) Resp 16 Ht 162.6 cm (5' 4) Wt 105.4 kg (232 lb 6.4 oz) BMI 39.89 kg/m? Objective Physical Exam Constitutional: She is oriented to person, place, and time and well-developed, well-nourished, and in no distress. Non-toxic appearance. Cardiovascular: Normal rate, regular rhythm and normal heart sounds. No murmur heard. Pulmonary/Chest: Effort normal and breath sounds normal. She has no wheezes. She has no rales. Abdominal: Soft. Bowel sounds are normal. She exhibits no distension, no abdominal bruit and no mass. There is no hepatosplenomegaly. There is no tenderness. There is no CVA tenderness. Neurological: She is oriented to person, place, and time. She has normal motor skills and normal sensation. She displays no weakness. Gait normal. Skin: Skin is warm and dry. No bruising and no rash noted. Component Latest Ref Rng AND Units 08/26/2018 WBC 4.8 - 10.8 thou/cmm 12.4 (H) RBC 4.20 - 5.40 mil/cmm 4.85 HGB 12.0 - 16.0 g/dL 14.1 Hematocrit 37.0 - 47.0 % 42.5 MCV 81.0 - 99.0 fl 87.6 MCH 27.0 - 31.0 pg 29.1 MCHC 32.0 - 36.0 % 33.2 RDW 11.5 - 15.9 % 12.7 Platelet Count 150 - 400 thou/cmm 356 MPV 7.1 - 10.5 fl 10.4 Seg Neutrophil % 68.7 Lymphocyte % 24.3 Monocyte % 4.8 Eosinophil % 2.0 Basophil % 0.2 Abs. Neut(Anc) 3.00 - 5.67 thou/cmm 8.52 (H) Abs. Lymph 1.50 - 3.65 thou/cmm 3.01 Abs. [place] 0.20 - 1.00 thou/cmm 0.60 Abs. Eosin 0.00 - 0.41 thou/cmm 0.25 Abs. Baso 0.00 - 0.08 thou/cmm 0.02 Sodium 136 - 145 mEq/L 134 (L) Potassium 3.5 - 5.1 mEq/L 3.5 Chloride 98 - 107 mEq/L 107 CO2 21 - 32 mEq/L 27 Glucose 70 - 99 mg/dL 108 (H) BUN 7 - 25 mg/dL 9 Creatinine 0.51 - 0.95 mg/dL 0.79 Calcium 8.5 - 10.1 mg/dL 8.9 Albumin 3.4 - 5.0 g/dL 3.8 Protein, Total 6.4 - 8.2 g/dL 7.4 AST 15 - 37 U/L 13 (L) ALT 14 - 63 U/L 31 Alkaline Phosphatase 46 - 116 U/L 72 Bilirubin, Total 0.2 - 1.0 mg/dL 0.3 Anion Gap 8 - 20 3 (L) BUN/CREATININE RATIO 10 - 20 11 Lipase 73 - 393 U/L 88 TSH 0.34 - 4.82 uIU/mL 1.08 eGFR >60mL/min/1.73m2 >60 ASSESSMENT/PLAN: 1. Diarrhea, unspecified type - ICD9: 787.91, ICD10: R19.7 Labs WNL - elevated WBC likely related to being Check stool studies Would recommend GI follow-up and possibly further imaging/work up after Continue care with OB - CBC + DIFF - COMP METABOLIC PANEL - LIPASE BLD - TSH BLD - C. DIFFICILE PCR - FECAL OCCULT BLOOD TEST - OVA + PARA MICROSCOPIC - STOOL CULTURE/EIA US abdomen 10/18/15 = Normal Sánchez Begum APRN.CNP Referring Provider: SELF [200] Allergies As of Date: 08/26/2018 (No Known Allergies) Date Reviewed: 08/26/2018 Reviewed by: Lupis Lui - Fully Assessed Reason for Visit: Abdominal Pain [1] Primary Visit Diagnosis:Diarrhea, unspecified type [R19.7] Order(s):CBC + DIFF [SQCBCDIF] Order #: [id number] FUTURE COMP METABOLIC PANEL [SQCMP] Order #: [id number] FUTURE LIPASE BLD [SQLIPA] Order #: [id number] FUTURE TSH BLD [SQTSH] Order #: [id number] FUTURE C. DIFFICILE PCR [SQCDPCR] Order #: [id number] FECAL OCCULT BLOOD TEST [SQIFOBT] Order #: [id number]: 3 FUTURE OVA + PARA MICROSCOPIC [SQOVAP] Order #: [id number] STOOL CULTURE/EIA [SQSTOCUL] Order #: [id number] Medication notes this encounter NAPROXEN 500 MG TABLET >> Lupis Lui CMA 08/26/2018 2:48 PM >> LUPIS LUI SatAug 26, 2018 2:48 PM Not taking Problem List As Of Date 08/26/2018 Noted Resolved Obesity [E66.9] GERD (gastroesophageal reflux disease) [K21.9] Lactose intolerance [E73.9] INVALID FOR* Visit Notes: >> Lupis Lui SatAug 26, 2018 2:44 PM Status: Signed Abnormal BM, saw Dr Lake, tried 6 different medications, nothing was helping. Took OTC anti diarrhea medication, which helped a little. Just found out she was and can no longer take the OTC medicine she was taking. Lupis Lui CMA Medications Discontinued During This Encounter naproxen (NAPROSYN) 500 mg tablet 14 t* 0 08/19/2017 08/26/2018 Class: Print RX Route: ORAL Sig: Take 1 tablet by mouth twice daily as needed. TAKE WITH FOOD Disc: Reason for discontinue is not on file. Disposition: Return if symptoms worsen or fail to improve. Follow-up and Disposition History Recorded Encounter Status:Closed by SÁNCHEZ BEGUM CNP on 09/02/18 ROCKET MOTOR TESTER OFFICE VISIT Observed: 07/06/2018 Status: F Source: [facility] 5:52 AM [facility] [place] [facility] [address] [place] [address] OFFICE VISIT Date of Service: 07/03/18 MR#: [id number] Acct: [id number] Name: CASIE ELIZABETH Rep #: [id number] : 1995 Provider: Maria D Reagan MD Age/Sex: 22/F Location: [facility] [place] Status: Signed Intake Vital Signs07/03/18 Height 5 ft 4 in 07/03/18 Weight: 230 lb 8 oz 07/03/18 Body Mass Index (BMI) 39.5 07/03/18 Blood Pressure 112/80 Intake Visit Reasons: F/U TROUBLE CONCEIVING Supervisor [employer] Required: No Accompanied by: Is patient in pain?: No Allergies No Known Allergies Allergy (Verified 07/03/18 13:03) Medications medroxyprogesterone 10 mg tablet 10 mg PO QDAY #5 tab 01/16/18 [Rx Confirmed 07/03/18] Is last menstrual period known: Yes Last Menstral Period: 04/29/18 Post menopausal: No Patient : No : No PFSH Social History Smoking Status: Light Smoker (<10/day) alcohol intake: current details: social substance use type: does not use caffeine: Yes what type of physical activity do you participate in: none seatbelt use: always do you feel safe at home: Yes additional social history: [employer] Patient works at [employer] F/U TROUBLE CONCEIVING: Details: CASIE ELIZABETH is a 22 year old who presents for preconception counseling. she has been cutting back on smoking for the last few months. she states she has been trying to eat healthier but hasn't really lost weight. she is very upset and really wants to proceed with taking fertility medication. Female Reproductive History Last Menstral Period: 04/29/18 Pregancy History 0 Elective abortions Hx Para Spontaneous abortions ROS Const Constitutional: Denies poor appetite, headache(s), fever(s), increased appetite, weight gain, weight loss or fatigue ENT ENT: Denies dry mouth GI GI: Reports as per HPI; denies vomiting, nausea, abdominal pain or constipation : Reports as per HPI; denies difficulty urinating, blood in urine, pelvic pain, urinary frequency, urinary incontinence, urinary hesitancy, urinary urgency, vaginal discharge, vaginal dryness, vaginal odor, vaginal itching, other, painful urination or nipple discharge Skin Skin/Breast: Denies hair loss, change in hair, dry skin, breast pain, breast skin changes, breast lump or nipple discharge Exam Const General: cooperative, healthy appearing, comfortable, no acute distress, well developed Orientation: alert HENMT Head: normal to inspection, normocephalic Ears: hearing grossly normal bilaterally, external ears normal Nose: external nose normal, nares normal Face and sinus: normal facial exam Neck Neck: normal visual inspection, trachea midline, no lymphadenopathy Thyroid: thyroid normal Resp Effort AND Inspection: normal respiratory effort Musc Other: gross motor intact no deficits, full bilateral strength Skin General: no rashes or lesions noted Neuro Motor: muscle tone normal throughout Assessment AND Plan Problems 1. 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 discussed weight loss prior to any ovulation induction agents. discussed tobacco cessation. 2. Infertility femara 3 cycles Plan discussed 3 cycles of femara only if patient quits smoking. info given and strongly encouraged continued weight loss efforts. handout and education given on femara and risks Coding Level of Care Code Off vis,est,level 4 Diagnoses Secondary oligomenorrhea N91.4 Infertility 07/06/18 0552 <Electronically signed by Maria D Reagan MD> Date Maria D Reagan MD Cosigner Signature: Date (if applicable) CC: ROCKET MOTOR TESTER OFFICE VISIT Observed: 01/17/2018 Status: F Source: [facility] 4:21 AM [facility] [address] [place] [address] OFFICE VISIT Date of Service: 01/16/18 MR#: [id number] Acct: [id number] Name: CASIE ELIZABETH Rep #: [id number] : 1995 Provider: Maria D Reagan MD Age/Sex: 22/F Location: [facility] [place] Status: Signed Intake Vital Signs01/16/18 Height 5 ft 4 in 01/16/18 Weight: 230 lb 8 oz 01/16/18 Body Mass Index (BMI) 39.5 01/16/18 Blood Pressure 105/70 Intake Visit Reasons: follow up Supervisor [employer] Required: No Is patient in pain?: No Allergies No Known Allergies Allergy (Verified 01/16/18 14:58) Medications medroxyprogesterone 10 mg tablet 10 mg PO QDAY #5 tab 01/16/18 [Rx Confirmed 01/16/18] Is last menstrual period known: Yes Last Menstral Period: 12/24/17 Post menopausal: No Patient : No : No PFSH Social History Smoking Status: Light Smoker (<10/day) alcohol intake: current details: social substance use type: does not use caffeine: Yes what type of physical activity do you participate in: none seatbelt use: always do you feel safe at home: Yes additional social history: [employer] Patient works at [employer] follow up: Details: CASIE ELIZABETH is a 22 year old who presents for fu secondary oligomenorrhea. she had a bleed in response to provera and all bloodwork and was WNL. she has lost 5 lbs and she is trying to continue to lose weight and get . Female Reproductive History Last Menstral Period: 12/24/17 Pregancy History 0 Elective abortions Hx Para Spontaneous abortions ROS Const Constitutional: Reports weight loss GI GI: Reports system reviewed and no additional complaints, except as docu Assessment AND Plan Problems 1. 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 discussed weight loss prior to any ovulation induction agents Plan see problem list for updates on plan details. fu 4-6 months Medications New: Coding Level of Care Code Off vis,est,level 3 Diagnoses Secondary oligomenorrhea N91.4 01/17/18 0421 <Electronically signed by Maria D Reagan MD> Date Maria D Reagan MD [facility] Signature: Date (if applicable) CC: ROCKET MOTOR TESTER OFFICE VISIT Observed: 12/23/2017 Status: F Source: [facility] 10:08 PM [facility] REPOSITORY [facility] [address] [place] [address] OFFICE VISIT Date of Service: 12/18/17 MR#: [id number] Acct: [id number] Name: CASIE ELIZABETH Rep #: [id number] : 1995 Provider: Maria D Reagan MD Age/Sex: 22/F Location: [facility] [place] Status: Signed Intake Vital Signs12/18/17 Height 5 ft 4 in 12/18/17 Weight: 235 lb 8 oz 12/18/17 Body Mass Index (BMI) 40.4 12/18/17 Blood Pressure 119/72 Intake Visit Reasons: IRREGULAR MENSES Chief Complaint: Irregular Menses, Trying to get Supervisor [employer] Required: No Is patient in pain?: No Allergies No Known Allergies Allergy (Unverified 12/18/17 14:47) Medications medroxyprogesterone 10 mg tablet 10 mg PO QDAY #5 tab 12/18/17 [Rx Confirmed 12/18/17] Is last menstrual period known: Yes Last Menstral Period: 08/27/17 Post menopausal: No Patient : No : [facility] Social History Smoking Status: Light Smoker (<10/day) alcohol intake: current details: social substance use type: does not use caffeine: Yes what type of physical activity do you participate in: none seatbelt use: always do you feel safe at home: Yes 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 She is trying for . She had a nexplanon removed in august, no menses since then. she has never had any pregnancies before. she has never had any stds, no significant dysmenorrhea. she hadn't had menses when she was on the nexplanon. She has had fairy stable weight. she co mild hirsutism. her is healthy, no testicular trauma or infections in past. She is on a PNV. She denies any family history of endometriosis. Female Reproductive History Last Menstral Period: 08/27/17 Cycle Length: >35 Questions: Metorrhagia: No, Sexually active: Yes, Dyspareunia: No, PCB: No Pregancy History 0 Elective abortions Hx Para Spontaneous abortions ROS Const Constitutional: Denies poor appetite, headache(s), fever(s), increased appetite, weight gain, weight loss or fatigue ENT ENT: Denies dizziness or dry mouth Cardio Card: Denies chest pain Resp Resp: Denies dyspnea or cough GI GI: Reports as per HPI; denies vomiting, nausea, abdominal pain or constipation : Reports as per HPI; denies urinary urgency, vaginal discharge, urinary frequency, vaginal itching, vaginal odor, vaginal dryness, urinary incontinence, urinary hesitancy, pelvic pain, difficulty urinating or painful urination Musc Musc: Reports back pain; denies muscle weakness or joint pain Skin Skin/Breast: Reports as per HPI; denies hair loss, change in hair, dry skin, breast pain, breast skin changes or breast lump Neuro Neuro: Denies dizziness Psych Psych: Denies anxiety or depression Endo Endo: Denies cold intolerance, increased thirst, excessive sweating or heat intolerance Graeme/Lymph Hematologic/Lymphatic: Denies easy bleeding, Denies easy bruising, Denies enlarged lymph nodes Exam Const General: cooperative, healthy appearing, comfortable, no acute distress, well developed Nutritional Appearance: overweight Orientation: alert [facility] Head: normal to inspection, normocephalic Ears: hearing grossly normal bilaterally, external ears normal Nose: external nose normal, nares normal Face and sinus: normal facial exam Neck Neck: normal visual inspection, trachea midline, no lymphadenopathy Thyroid: thyroid normal Chest Chest palpation AND inspection: normal inspection of the chest Resp Effort AND Inspection: normal respiratory effort Auscultation: clear to auscultation bilaterally Cardio Rate: regular rate Rhythm: regular rhythm Heart Sounds: S1 normal, S2 normal GI Inspection: normal to inspection, non-distended Palpation: soft, no hepatosplenomegaly General: bladder normal to palpation External Female Exam: normal external appearance, normal appearance of the urethra Urethra: normal appearance of the urethra, normal palpation, no discharge Speculum Exam - Vagina: normal appearance of the vagina, normal vaginal discharge Speculum Exam - Cervix: normal appearance of the cervix, nontender Bimanual Exam- Vagina AND Uterus: bladder normal to palpation, No cervical tenderness, normal bimanual exam, normal vaginal palpation, uterine size normal, uterine shape normal, uterine mobility normal, uterine consistency normal, normal cervical palpation, uterus non-tender Bimanual Exam- Adnexa, other: normal adnexae, adnexae mobile, no adnexal masses, pelvic support normal Pelvic Support: normal Musc Cervical Spine: other Other: gross motor intact no deficits, full bilateral strength Skin General: no rashes or lesions noted Neuro General: alert, awake, no focal motor deficits, moves all extremities Motor: muscle tone normal throughout Extrem General: normal to inspection, no pedal edema Psych Appearance: grossly normal Mental Status: mental status grossly normal Affect: normal affect Speech and Movement: speech and movement normal Assessment AND Plan Problems 1. 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 plan fu after provera and labs tot discuss nursing home plan Orders Orders: Medications New: Coding Level of Care Code Off vis,new,level 4 Diagnoses Secondary oligomenorrhea N91.4 12/23/172207 <Electronically signed by Maria D Reagan MD> Date Maria D Reagan MD Cosigner Signature: Date (if applicable) CC: THYROID STIM HORMONE Collected: 12/18/2017 Status: F Source: [place] (TSH) 3:39 PM [facility] REPOSITORY TYPE CODE TESTS RESULT OUT OF RANGE REFERENCE UNITS LAB L501.9520 0.358-3.74 uIU/mL Normal TSH 1.62 Performed By: #### L501.9520, L3100.5125, L3100.5420 #### [facility] [address] [place], [place], [address] FOLLICLE STIMULATING Collected: 12/18/2017 Status: F Source: [place] HORMONE 3:39 PM [facility] REPOSITORY TYPE CODE TESTS RESULT OUT OF RANGE REFERENCE UNITS LAB L3100.5125 mIU/mL Normal FSH 5.9 Result Comment: NORMAL REFERENCE RANGES FEMALE FOLLICULAR 2.3 - 12.6 mIU/mL MID-CYCLE PEAK 5.2 - 17.5 mIU/mL LUTEAL 1.7 - 12.9 mIU/mL POST-MENOPAUSAL ON MHT 5.9 - 72.8 mIU/mL NOT ON MHT 12.7 - 132.2 mlU/mL MALE 0.7 - 10.8 mIU/mL NEW TEST METHOD AND REFERENCE RANGES FEBRUARY 11, 2012 Performed By: #### L501.9520, L3100.5125, L3100.5420 #### [facility] [address] [facility] [place], [address] PROLACTIN Collected: 12/18/2017 Status: F Source: [place] 3:39 PM [facility] REPOSITORY TYPE CODE TESTS RESULT OUT OF RANGE REFERENCE UNITS LAB L3100.5420 ng/mL Normal PROLACTIN 6.6 Result Comment: NORMAL REFERENCE RANGES FEMALE NON- 2.2 - 30.3 ng/mL 8.1 - 347.6 ng/mL POST-MENOPAUSAL 0.7 - 31.5 ng/mL MALE 2.5 - 17.4 ng/mL NEW TEST METHOD AND REFERENCE RANGES FEBRUARY 11, 2012 Performed By: #### L501.9520, L3100.5125, L3100.5420 #### [facility] [address] [place], [place], [address] DHEA SULFATE Collected: 12/18/2017 Status: F Source: [place] 3:39 PM [facility] REPOSITORY Order Comment: Has Patient had Radioactive Injection for X-ray?: N TYPE CODE TESTS RESULT OUT OF RANGE REFERENCE UNITS LAB L3300.1500 110.0-431.7 ug/dL Normal DHEA SULF 295.6 4020 Performed By: #### L3300.1500, L3400.4800 #### [facility] (refer to report for specific site) refer to report for address and phone number TESTOSTERONE FREE Collected: 12/18/2017 Status: F Source: [place] 3:39 PM [facility] REPOSITORY Order Comment: Has Patient had Radioactive Injection for X-ray?: N TYPE CODE TESTS RESULT OUT OF RANGE REFERENCE UNITS LAB L3400.4800 0.0-4.2 pg/mL Normal TEST FR 2.5 [id number] Result Comment: Performed at: [address] [id number] Plumber Assistant: Carlos Lazar PhD, Phone: [phone] Performed at: [address] [id number] Plumber Assistant: David Lee MD, Phone: [phone] Performed By: #### L3300.1500, L3400.4800 #### [facility] (refer to report for specific site) refer to report for address and phone number [phone] Collected: Status: F Source: [place] 12/18/2017 3:39 PM [facility] REPOSITORY Order Comment: Has Patient had Radioactive Injection for X-ray?: N TYPE CODE TESTS RESULT OUT OF RANGE REFERENCE UNITS LAB L3100.9000 . ng/dL Normal HYDROXPROG 17 40 Result Comment: Adult Female Follicular 15 - 70 Luteal 35 - 290 This test was developed and its performance characteristics determined by [facility]. It has not been cleared or approved by the Food and Drug Administration. Performed at: [address] [id number] Plumber Assistant: David Lee MD, Phone: [phone] Performed By: #### L3100.9000 #### [facility] (refer to report for specific site) refer to report for address and phone number ED NOTE Observed: 11/11/2017 Status: COMPLETED Source: [place] 1:02 PM [facility] RE[facility] HNO ID: [id number] Author: Diamond (Rn) AUGUSTINE Keating Service: Emergency Medicine Author Type: Registered Nurse Type: ED Notes Filed: 11/11/2017 1:02 PM Note Text: D/C to home, instructed to follow up as directed and return prn ED PROV NOTE Observed: 11/11/2017 Status: COMPLETED Source: [place] 12:49 PM [facility] REPOSITORY HNO ID: [id number] Author: Hortensia Lopez DO Service: Emergency Medicine Author Type: Physician Type: ED Provider Notes Filed: 11/11/2017 12:54 PM Note Text: ED Provider Note Patient Name: Casie Elizabeth SERVICE DATE: 11/11/17 History Patient presents with: Ear Pain HPI Comments: Patient's age she's been having pain in her right ear since last night. She states she tried home remedies, with no improvement. She states that she called off work because of the ear pain as she was up all night till 5 AM. She states her work stated that she needed to get a doctor's excuse. She states she tried to get into her primary care to be seen, but there was no room on the schedule. She states that she's had no fever. She states that her throat is sore just on the right side when she swallows. Patient is a 22 year old female presenting with ear problem. 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 Timing: Constant Progression: Unchanged Chronicity: New Context: recent URI Context: not direct blow, not elevation change, not foreign body in ear, not loud noise and not water in ear Relieved by: Nothing Worsened by: Nothing Ineffective treatments: OTC medications (home remedies) Associated symptoms: cough and sore throat Associated symptoms: no ear discharge, no fever, no headaches, no hearing loss, no neck pain, no rash, no rhinorrhea, no tinnitus and no vomiting PAST MEDICAL HISTORY Diagnosis Date - GERD (gastroesophageal reflux disease) - IBS (irritable bowel syndrome) 2017 Dr. Lake - Obesity PAST SURGICAL HISTORY Procedure Laterality Date - NONE FAMILY HISTORY Problem Relation Age of Onset - Breast Cancer Maternal Grandmother Social History Social History Main Topics - Smoking status: Current Every Day Smoker - Smokeless tobacco: Never Used - Alcohol use No - Drug use: No - Sexual activity: Not Asked ALLERGIES No Known Allergies Review of Systems Constitutional: Negative for chills and fever. HENT: Positive for ear pain (right ear) and sore throat. Negative for drooling, ear discharge, facial swelling, hearing loss, rhinorrhea, tinnitus and trouble swallowing. Eyes: Negative for redness and itching. Respiratory: Positive for cough. Negative for shortness of breath. Gastrointestinal: Negative for nausea and vomiting. Musculoskeletal: Negative for neck pain and neck stiffness. Skin: Negative for rash. Neurological: Negative for headaches. Physical Exam BP 121/85 Pulse 106 Temp 96.5 Resp 20 Ht 5' 4 (1.63m) Wt 225 lb (102.1kg) SpO2 99% BMI 38.60 kg/(m2). Physical Exam Constitutional: She is oriented to person, place, and time. She appears well-developed and well-nourished. No distress. HENT: Right Ear: No mastoid tenderness. Tympanic membrane is injected, erythematous and retracted. Tympanic membrane is not perforated and not bulging. A middle ear effusion is present. No hemotympanum. Left Ear: No mastoid tenderness. Tympanic membrane is not injected, not perforated, not erythematous, not retracted and not bulging. No middle ear effusion. No hemotympanum. Cardiovascular: Normal rate and regular rhythm. Pulmonary/Chest: Effort normal and breath sounds normal. No respiratory distress. She has no wheezes. Neurological: She is alert and oriented to person, place, and time. No cranial nerve deficit. Skin: Skin is warm and dry. Psychiatric: She has a normal mood and affect. Her behavior is normal. Nursing note and vitals reviewed. Diagnostic Testing ED Labs Ordered and Reviewed - No data to display Procedures Medical Decision Making / ED Course ED Course Patient does have clinical findings of otitis media in the right ear. I will prescribe amoxicillin and have her follow-up with primary. Instructed to return for new or worsening symptoms. A work excuse was given to her for today. Encounter Diagnosis ICD-10-CM 1. Right otitis media, unspecified otitis media type H66.91 Plan The Patient was DISCHARGED: Counseled patient regarding suspected diagnosis AND need for follow-up. Discharged home with verbal and written instructions. They were instructed to return as needed for persistent or worsening symptoms or any new concerns. Condition at time of disposition: stable SIGNATURE: DO Hortensia Werner DO 11/11/17 1254 ALLERGIES ALLERGIES DATE TYPE / CODE NAME / CODE REACTION SEVERITY SOURCE 09/22/2018 Drug No Known Unknown [place] [facility] Allergy/416 Allergies/P19665 Hospital 306689(SNOM 0388(RXNORM) Repository ED CT) Drug NO KNOWN [facility] Class/28177 ALLERGIES [facility] [place] 1003(SNOMED Repository CT) ENCOUNTERS ENCOUNTERS ADMIT/DISCHARGE ACCOUNT ADMITTING ENCOUNTER LOCATION SOURCE NUMBER CLASS 09/28/2018/09/30/19 [id number] Ambulatory [address] [place] Repository 09/25/2018/09/25/19 [id number] Ambulatory BMSBuilding:B [place] [facility] Repository 09/22/2018/09/22/20 [id number] Ambulatory BMSBuilding:B [place] 18 [facility] Repository 09/12/2018 [id number] Ambulatory [facility] Other [place] Repository 09/12/2018/09/12/20 [id number] Ambulatory [address] Repository 09/03/2018/09/03/20 [id number] Ambulatory Building:[address] Repository 09/03/2018 [id number] Ambulatory [facility] Hospital ing:PAVLAB Repository 09/03/2018/09/03/20 [id number] Ambulatory BMSBuilding:B [place] 18 [facility] Repository 08/26/2018 [id number] Ambulatory [facility] Other [place] Repository 08/26/2018/08/26/20 [id number] Ambulatory [address] Other [place] Repository 07/03/2018/07/03/20 [id number] Ambulatory BMSBuilding:B [place] 18 [facility] Repository 01/16/2018/01/17/20 [id number] Ambulatory BMSBuilding:B [place] 18 [facility] Repository 12/18/2017 [id number] Ambulatory [facility] Hospital ing:LAB Repository 12/18/2017/12/19/19 [id number] Ambulatory BMSBuilding:B [place] 18 [facility] Repository PAYERS PAYERS ENCOUNTER GUARANTOR PAYER SUBSCRIBER SOURCE 09/25/2018 CASIE GARCIAB: [place] [id number] Insurance:[employer] [id number] [address] Number: [place], [place] [id number] Repository [address]Gtx: (330) Date:3209-14-[phone] () [id number], [place] [address]SN: 09/25/2018 Secondary NOT GIVENUNK [place] Insurance:SELF PAY [facility] Number: Effective Repository Date:2018-09-25 09/22/2018 CASIE Ellison Primary NASIM QUACHDOB: [place] [id number] Insurance:CIGNAPolicy [id number] [facility] [address] Number: [place], [place] [id number] Repository [address]Czl: (330) Date:1734-28-42BS [phone] () [id number], [place] [address]JQ: 09/22/2018 Secondary NOT GIVENUNK Sof[place] Insurance:SELF PAY Community [facility] Number: Effective Repository Date:2018-09-22 09/03/2018 CASIE Ana Maria CASIE [place] [facility] MORRISDOB: Insurance:CIGNAPolicy MORRISDOB: [facility] S Number: [id number], Date: [place], [place] [address]: [place] [address] (HP) 09/03/2018 CASIE Ellison Primary NASIM GARCIAB: [place] [id number] Insurance:CIGNAPolicy [id number] [facility] [address] Number: [place], [place] [id number] Repository [address]Zpd: (330) Date:8586-02-62GK [phone] (HP) [address]35[address]QMBMFJSDMNN, [place] [address]CV: 09/03/2018 Secondary NOT GIVENUNK Sofie Insurance:SELF PAY Community [facility] Number: Effective Repository Date:2018-09-03 09/03/2018 CASIE M Primary NASIM GARCIAB: [place] [id number] Insurance:CIGNAPolicy [id number] [facility] [address] Number: [place], [place] [id number] Repository [address]Fxw: (330) Date:6895-80-07PW [phone] (HP) 269[address]ZDPFZANNBVC, [place] [address]CK: 09/03/2018 Secondary NOT GIVENUNK Sof[place] Insurance:SELF PAY Community [facility] Number: Effective Repository Date:2018-09-03 07/03/2018 CASIE Ellison Primary NASIM GARCIAB: [place] [id number] Insurance:CIGNAPolicy [id number] [facility] [address] Number: [place], [place] [id number] Repository [address]Ewm: (330) Date:2773-52-36JY [phone] () [address]16[address]JTOSLFMMRSF, [place] [address]IW: 07/03/2018 Secondary NOT GIVENUNK [place] Insurance:SELF PAY Community [facility] Number: Effective Repository Date:2018-07-03 01/16/2018 CASIE Ellison Primary NASIM GARCIAB: [place] [id number] Insurance:CIGNAPolicy [id number] [facility] [address] Number: [place], [place] [id number] Repository [address]Jvi: (330) Date:2702-20-72SW [phone] () [id number], [place] [address]EQ: 01/16/2018 Secondary NOT GIVENUNK [place] Insurance:SELF PAY Community [facility] Number: Effective Repository Date:2018-01-16 12/18/2017 CASIE Ellison Primary NASIM JOSEB: [place] [id number] Insurance:CIGNAPolicy [id number] [facility] [address] Number: [place], [place] [id number] Repository [address]Khy: (330) Date:4151-19-19QA [phone] () 816[address]ZVMJPJSHUIR, [place] [address]KB: 12/18/2017 Secondary NOT GIVENUNK [place] Insurance:SELF PAY Community [facility] Number: Effective Repository Date:2017-12-18 12/18/2017 CASIE GARCIAB: [place] [id number] Insurance:CIGNAPolicy [id number] [facility] 723MILLS Number: [place], [place] [id number] Repository [address]Jlo: (330) Date:7018-74-71CL [phone] () 655[address]ENHOJIFACJI, [place] [address]VN: 12/18/2017 Secondary NOT GIVENUNK Sof[place] Insurance:SELF PAY [facility] Number: Effective Repository Date:2017-12-18
== END ==
PROVIDERS: Referring Provider Obstetrics & Gynecology; Visit Provider Obstetrics & Gynecology
DX: Z34.90 Encounter for supervision of normal pregnancy, unspecified, unspecified trimester (principal); Z12.4 Encounter for screening for malignant neoplasm of cervix
CPT/HCPCS: 36415; 82950; 85025; 86592; 86703; 86762; 86850; 86900; 87086; 87088; 87340; 87491; 87591; 87624; 88175; G0145

== ENCOUNTER → 2018-12-17 16:44 | Outpatient (CLI) | payer OTHER, SELFPAY ==
[2018-12-17 08:53] VITALS: BMI 44.6
== END ==
PROVIDERS: Referring Provider Nurse Practitioner Women's Health; Visit Provider Nurse Practitioner Women's Health
DX: N89.8 Other specified noninflammatory disorders of vagina (principal)
CPT/HCPCS: 87070; 87205

== ENCOUNTER → 2019-02-11 12:33 | Outpatient (CLI) | payer OTHER, SELFPAY ==
[2019-02-11 12:12] VITALS: BMI 44.6
[2019-02-11 13:24] LABS: Absolute Lymphocyte Count 2.05 X10^3/ul (0.83-4.51); Absolute Neutrophil Count 9.9 X10^3/uL (2.0-7.7); Basophil# 0.01 X10^3/uL; Basophil% 0.1 % (0-1); Eosinophil# 0.11 X10^3/uL; Eosinophils% 0.9 % (0-5); Hematocrit 33.4 % (37-47); Hemoglobin 10.9 g/dl (12.0-15.0); Lymphocyte # 2.05 X10^3/ul (4.0); Lymphocyte % 16.4 % (19-41); Mean Corp Hgb Conc 32.6 g/gl (32-36); Mean Corpuscular Hgb 28.5 pg (27.0-32.0); Mean Corpuscular Volume 87.4 fL (81-99); Mean Platelet Vol. 9.5 fl (6.2-12.0); Monocyte# 0.42 X10^3/uL; Monocyte% 3.4 % (0-10); Neutrophil # 9.88 X10^3/uL (2.7-7.7); Neutrophil % 78.8 % (47-70); Platelet Count 243 K/mm3 (150-450); RBC Distribution Width CV 13.6 % (11.6-14.6); RBC Distribution Width SD 43.7 fl (35.1-43.9); Red Blood Count 3.82 M/mm3 (4.2-5.4); White Blood Count 12.5 K/mm3 (4.4-11.0)
[2019-02-11 13:25] LABS: POSITIVE COUNT NO; POSITIVE DIFFERENTIAL NO; POSITIVE MORPHOLOGY NO
[2019-02-11 13:30] LABS: Glucose Challenge Gest 1H 50g 132 mg/dL (70-140)
== END ==
PROVIDERS: Nurse Practitioner Women's Health; Referring Provider Obstetrics & Gynecology; Visit Provider Obstetrics & Gynecology
DX: Z34.92 Encounter for supervision of normal pregnancy, unspecified, second trimester (principal); Z3A.27 27 weeks gestation of pregnancy
CPT/HCPCS: 36415; 82950; 85025

== ENCOUNTER → 2019-03-16 08:47 | Outpatient (CLI) | payer OTHER, SELFPAY ==
[2019-03-02 11:16] VITALS: BMI 44.6
--- NOTE | 2019-03-16 08:49 | US_ITS ---
STUDY: SECOND AND THIRD TRIMESTER OBSTETRICAL ULTRASOUND - LIMITED REASON FOR EXAM: Female, 23 years old. growth. LMP: Unknown. Estimated due date May 08, 2019 is provided. PRIOR ULTRASOUND: None. TECHNIQUE: Transabdominal TECHNICAL QUALITY: Adequate. FINDINGS: There is a single intrauterine fetus. The fetus is in a cephalic presentation. There is demonstrated cardiac activity with a heart rate of 127 bpm. There is borderline to mild increased amniotic fluid volume consistent with polyhydramnios. The largest amniotic fluid pocket measures 9.2 x 5.0 cm. The amniotic fluid index (BLANCO) is 20.2 cm. The placenta is anterior in location and is not low lying. There are Grade 2 placental changes. The cervix measures 3.3 cm in length and is closed. The adnexa are not visualized. BIOMETRY: BPD: 7.8 cm: 32 weeks, 1 days HC: 29.5 cm: 32 weeks, 4 days AC: 29.9 cm: 34 weeks, 0 days FL: 6.5 cm: 33 weeks, 4 days CI: 77% FL/BPD: 81% FL/AC: 22% HC/AC: 0.98 Age by given MADISON: 32 weeks, 3 days. Given MADISON: May 08, 2019. age by current US: 33 weeks, 1 days. MADISON by current US: May 03, 2019. Estimated weight: 2205 grams, +/- 322 grams, 73 percentile. US/OB Limited With Biometrics IMPRESSION: 1. Single living intrauterine fetus in cephalic presentation at estimated gestational age of 33 weeks, 1 day. Estimated date of delivery by today's study is May 03, 2019. 2. There is borderline to mild polyhydramnios, with a fluid index of 20.2 cm. 3. The cervix is closed. Cervical length is 3.3 cm. 4. Grade 2 anterior placenta is not low-lying. 5. Estimated weight is 2205 g. Electronically Signed: Cali Milner MD at 14:52 EDT , Service support ,
== END ==
PROVIDERS: PCP Nurse Practitioner Family; Referring Provider Obstetrics & Gynecology; Visit Provider Obstetrics & Gynecology
DX: O99.213 Obesity complicating pregnancy, third trimester (principal); O40.3XX0 Polyhydramnios, third trimester, not applicable or unspecified; Z3A.33 33 weeks gestation of pregnancy
CPT/HCPCS: 76816

== ENCOUNTER 2019-03-17 07:51 | Emergency (ER) | payer OTHER, SELFPAY ==
[2019-03-16 09:42] VITALS: BMI 44.6
[2019-03-17 07:53] VITALS: BP 128/91; PULSE 111; RESP 18; TEMP 36.9; O2SAT 97; BMI 39.1
--- NOTE | 2019-03-17 08:09 | ED.VISSUMM ---
- ER Visit Summary Date of Service: 03/17/19 Chief Complaint: Dizzy and nausea History of Present Illness: The patient is a 23 F who is currently 7/2 months with her first . Patient states this morning she felt dizzy when she got up. She felt lightheaded and somewhat off balance. She thought maybe she was just hungry but symptoms did not improve after eating. She denies chest pain or palpitations. She is been having some intermittent back cramping but no anterior abdominal pain. She was seen by her OB yesterday and had an ultrasound. Physical Examination: Blood pressure is 128/91 and heart rate is 111. Patient sitting upright in bed no acute distress. Heart is slightly tachycardic and regular. Lung sounds clear. Abdomen is soft, nontender, gravid. Test Results: [] Emergency Department Course and Treatment: I spoke with Dr. Reagan shortly after I saw the patient as she is greater than 20 weeks. She would like a preeclampsia panel drawn and then send the patient down to OB for further monitoring and work-up. Treatment Plan: [] Disposition: Discharged to OB Impression: 1. Dizziness 2. Third trimester This note was generated with [employer] dictation software. It may contain incorrect words, spelling, and punctuation that were not noted in review of the chart prior to signing ED Disposition - Plan for ED Patient: Disposition: Home or Assisted Living Instructions: DIZZINESS, Unk Cause Referrals: [facility] Doctor,Out of [Primary Care Provider] -
[2019-03-17 08:37] LABS: Red Blood Cells-Urine 0 SEEN /hpf (0-5)
[2019-03-17 08:40] LABS: Color, Urine Yellow (Yellow); Glucose, Dipstick Normal (Normal); Ketone-Dipstick Negative (Negative); Leukocyte Esterase-Dipstick 500 /ul (Negative); Nitrite-Dipstick Negative (Negative); Occult Blood-Urine Negative /ul (Negative); Protein-Dipstick 15 mg/dl (Negative); Specific Gravity, Urine 1.015 (1.002-1.030); Urine Bilirubin Dipstick Negative (Negative); Urine Clarity Sl. Cloudy (Clear); Urine Urobilinogen 1 mg/dl (Normal)
[2019-03-17 08:44] LABS: Absolute Lymphocyte Count 1.94 X10^3/ul (0.83-4.51); Absolute Neutrophil Count 8.4 X10^3/uL (2.0-7.7); Basophil# 0.03 X10^3/uL; Basophil% 0.3 % (0-1); Eosinophils% 1.8 % (0-5); Hematocrit 34.4 % (37-47); Hemoglobin 11.4 g/dl (12.0-15.0); Lymphocyte # 1.94 X10^3/ul (4.0); Lymphocyte % 17.1 % (19-41); Mean Corp Hgb Conc 33.1 g/gl (32-36); Mean Corpuscular Hgb 28.2 pg (27.0-32.0); Mean Corpuscular Volume 85.1 fL (81-99); Mean Platelet Vol. 10.7 fl (6.2-12.0); Monocyte# 0.66 X10^3/uL; Monocyte% 5.8 % (0-10); Neutrophil # 8.44 X10^3/uL (2.7-7.7); Neutrophil % 74.2 % (47-70); Platelet Count 235 K/mm3 (150-450); RBC Distribution Width CV 13.6 % (11.6-14.6); RBC Distribution Width SD 41.6 fl (35.1-43.9); Red Blood Count 4.04 M/mm3 (4.2-5.4); White Blood Count 11.4 K/mm3 (4.4-11.0)
[2019-03-17 08:46] LABS: POSITIVE COUNT NO; POSITIVE DIFFERENTIAL NO; POSITIVE MORPHOLOGY NO
[2019-03-17 08:47] LABS: Bacteria 1+ /hpf (None Seen); Mucous, Urine 1+ /hpf (<or=2+); Squamous Epithelial Cells - UA 5-10 SEEN /hpf (5-10); White Blood Cells 5-10 SEEN /hpf (0-5)
[2019-03-17 08:54] LABS: Partial Thromboplast Time 26.3 Seconds (24.1-36.2); Prothrombin Time (Protime)PT. 12.8 SECONDS (11.7-14.9)
[2019-03-17 08:55] LABS: Alanine Aminotransfer ALT/SGPT 19 U/L (13-56); Anion Gap 7 (5-15); BUN 4 mg/dL (7-18); BUN/Creat Ratio 7.4 RATIO (10-20); Calcium,Total 8.2 mg/dL (8.5-10.1); Chloride 108 mmol/L (98-107); Creatinine, Serum 0.54 mg/dL (0.55-1.02); EST Glomerular Filtration Rate 149 mL/min (>60); Est Glom Filt Rate - Afr Amer 181 mL/min (>60); Estimated Creatinine Clearance 142.31 ml/min; Glucose 80 mg/dL (74-106); Potassium 3.3 mmol/L (3.5-5.1); Sodium Level 138 mmol/L (136-145); Uric Acid 4.6 mg/dL (2.6-6.0)
[2019-03-17 08:56] LABS: AST(SGOT) 13 U/L (15-37); Protein, Urine (Random) 40.3 mg/dL (<11.9); Protein:Creat Ratio 223 mg/g CRE (0-200)
== END 2019-03-17 08:24 | disposition home or self-care (01) ==
PROVIDERS: Emergency Provider Emergency Medicine
DX: O26.893 Other specified pregnancy related conditions, third trimester (principal); R42 Dizziness and giddiness; R11.0 Nausea; O99.333 Smoking (tobacco) complicating pregnancy, third trimester; Z3A.00 Weeks of gestation of pregnancy not specified
CPT/HCPCS: 80048; 81001; 82570; 84156; 84450; 84460; 84550; 85025; 85610; 85730; 99282; J7040; A4216

== ENCOUNTER 2019-03-17 08:20 | Outpatient (CLI) | payer OTHER, SELFPAY ==
[2019-03-17 07:53] VITALS: BMI 39.1
[2019-03-17 08:41] VITALS: BMI 39.4
--- NOTE | 2019-03-18 16:37 | OB.TRI.PN_ITS ---
Progress Notes Date of Service: 03/17/19 Progress Note: nst secondary to elevated bps. repeat bps all within normal limits. normal labs negative proteinuria fht 130 moderate variability reactive no decelerations category I tracing [place]: no regular a/p elevated bp fu in office
== END 2019-03-17 10:10 | disposition home or self-care (01) ==
LOC: WPOUT 08:33 → WP 08:33
PROVIDERS: Referring Provider Obstetrics & Gynecology; Visit Provider Obstetrics & Gynecology
DX: O26.899 Other specified pregnancy related conditions, unspecified trimester (principal); R03.0 Elevated blood-pressure reading, without diagnosis of hypertension; Z3A.00 Weeks of gestation of pregnancy not specified
CPT/HCPCS: 59025; 59050; 99218; G0378

== ENCOUNTER → 2019-04-10 13:23 | Outpatient (CLI) | payer OTHER, SELFPAY ==
[2019-04-10 11:13] VITALS: BMI 39.4
== END ==
PROVIDERS: Referring Provider Obstetrics & Gynecology; Visit Provider Obstetrics & Gynecology
DX: O09.90 Supervision of high risk pregnancy, unspecified, unspecified trimester (principal); Z3A.00 Weeks of gestation of pregnancy not specified
CPT/HCPCS: 87077; 87081; 87186

== ENCOUNTER 2019-04-11 10:35 | Outpatient (CLI) | payer OTHER, SELFPAY ==
[2019-04-10 11:13] VITALS: BMI 39.4
[2019-04-11 11:03] VITALS: BMI 39.6
[2019-04-11 11:52] LABS: ROM Internal Control Test YES-OK TO RESULT pt. (Internal QC)
[2019-04-11 11:53] LABS: ROM Patient Test Negative (Negative)
--- NOTE | 2019-04-16 18:57 | OB.TRI.PN_ITS ---
Progress Notes Date of Service: 04/11/19 Progress Note: co ctx still 4 cm negative rom plus no labor fht 130 moderate variability reactive no decelerations category I tracing [place]: irregular a/p: false labor reviewed ptl precautions fu as scheduled Laboratory Studies: Laboratory Tests 04/11/19 Range/Units 10:55 Vag Amniotic Fld Detect Negative (Negative)
== END 2019-04-11 12:10 | disposition home or self-care (01) ==
LOC: WPOUT 11:00 → WP 11:04
PROVIDERS: Referring Provider Obstetrics & Gynecology; Visit Provider Obstetrics & Gynecology
DX: O47.9 False labor, unspecified (principal); Z3A.00 Weeks of gestation of pregnancy not specified
CPT/HCPCS: 59025; 59050; 84112; 99218; G0378

== ENCOUNTER → 2019-04-14 08:55 | Outpatient (CLI) | payer OTHER, SELFPAY ==
[2019-03-02 11:16] VITALS: BMI 44.6
[2019-04-11 11:03] VITALS: BMI 39.6
--- NOTE | 2019-04-14 08:57 | US_ITS ---
STUDY: SECOND AND THIRD TRIMESTER OBSTETRICAL ULTRASOUND - LIMITED REASON FOR EXAM: Female, 23 years old. Routine survey. LMP: 08/01/2018 PRIOR ULTRASOUND: 03/16/2019 TECHNIQUE: Transabdominal TECHNICAL QUALITY: Adequate. FINDINGS: There is a single intrauterine fetus. The fetus is in a cephalic presentation. There is demonstrated cardiac activity with a heart rate of 144 bpm. Stable borderline to mildly increased amniotic fluid. BLANCO has increased slightly since the previous study. The largest amniotic fluid pocket measures 9.7 cm. The amniotic fluid index (BLANCO) is 23.6 cm. The placenta is anterior in location and is not low lying. There are Grade 2 placental changes. The cervix was not measured. BIOMETRY: BPD: 8.89 cm: 36 weeks, 0 days HC: 32.2 cm: 36 weeks, 3 days AC: 33.2 cm: 37 weeks, 1 days FL: 7.21 cm: 37 weeks, 0 days Age by LMP: 36 weeks, 4 days. MADISON by LMP: 04/28/19. age by prior US: 37 weeks, 2 days. MADISON by prior US: 05/03/2019. age by current US: 36 weeks, 5 days. MADISON by current US: 05/07/2019. Estimated weight: 3052 grams, +/- 446 grams, 62 percentile. Gender: Indeterminant US/OB Limited With Biometrics IMPRESSION: Single live intrauterine at 36 weeks, 5 days by current ultrasound with MADISON of 05/07/2019. Heart rate at 144 bpm. There has been normal growth noted since the previous study. Stable borderline elevated BLANCO levels at 23.6. Findings again consistent with borderline polyhydramnios but no specific underlying etiology for the BLANCO level noted. The BLANCO level has increased slightly since the previous study Electronically Signed: Cali Shrestha MD at 10:24 EDT , Service support ,
== END ==
PROVIDERS: Referring Provider Obstetrics & Gynecology; Visit Provider Obstetrics & Gynecology
DX: O99.213 Obesity complicating pregnancy, third trimester (principal); Z3A.00 Weeks of gestation of pregnancy not specified
CPT/HCPCS: 76816

== ENCOUNTER 2019-04-16 14:35 | Outpatient (CLI) | payer OTHER, SELFPAY ==
[2019-04-14 10:37] VITALS: BMI 39.6
[2019-04-16 15:25] VITALS: BMI 40.1
[2019-04-16 16:05] LABS: Bacteria 0 SEEN /hpf (None Seen); Mucous, Urine 0 SEEN /hpf (<or=2+); Red Blood Cells-Urine 0 SEEN /hpf (0-5)
[2019-04-16 16:09] LABS: ROM Internal Control Test YES-OK TO RESULT pt. (Internal QC); ROM Patient Test Negative (Negative)
[2019-04-16 16:16] LABS: Color, Urine Yellow (Yellow); Glucose, Dipstick Normal (Normal); Leukocyte Esterase-Dipstick 25 /ul (Negative); Nitrite-Dipstick Negative (Negative); Urine Clarity Clear (Clear)
--- NOTE | 2019-04-16 16:18 | US_ITS ---
STUDY: SECOND AND THIRD TRIMESTER OBSTETRICAL ULTRASOUND - LIMITED REASON FOR EXAM: Female, 23 years old. BLANCO LMP: 08/01/2018 PRIOR ULTRASOUND: 04/14/2019 TECHNIQUE: Transabdominal TECHNICAL QUALITY: Adequate. FINDINGS: There is a single intrauterine fetus. The fetus is in a cephalic presentation. There is demonstrated cardiac activity with a heart rate of 125 bpm. There is a normal amniotic fluid volume. The largest amniotic fluid pocket measures 7.86 cm. The amniotic fluid index (BLANCO) is 16.48 cm. The placenta is anterior in location and is not low lying. There are Grade 2 placental changes. The cervix is not seen. BIOMETRY: Not obtained US/OB Limited (No Biometrics) IMPRESSION: Normal amniotic fluid index. Electronically Signed: David Eaton MD at 17:12 EDT Tel , Service support ,
[2019-04-16 16:24] LABS: Squamous Epithelial Cells - UA 0-5 SEEN /hpf (5-10); White Blood Cells 0-5 SEEN /hpf (0-5)
[2019-04-16 16:49] LABS: Ketone-Dipstick 5 mg/dl (Negative); Occult Blood-Urine 10 /ul (Negative); Protein-Dipstick 100 mg/dl (Negative); Urine Urobilinogen 4 mg/dl (Normal)
[2019-04-16 17:07] LABS: Urine Bilirubin Dipstick 1 mg/dL (Negative)
--- NOTE | 2019-04-16 17:38 | OB.TRI.PN ---
Progress Notes Date of Service: 04/16/19 Progress Note: Patient seen for possible loss of fluid. Negative ROM plus and patient is still 4 cm dilated. BLANCO normal limits at 16 cm. Reassuring heart tones. heart tone 130 moderate variability reactive no decelerations category 1 tracing [place]: Irregular contractions Assessment and plan 23-year-old false labor no rupture membranes recommend DC home labor precautions Laboratory Studies: Laboratory Tests 04/16/19 04/16/19 Range/Units 15:50 15:30 Urine Color Yellow (Yellow) Urine Clarity Clear (Clear) Urine Glucose (UA) Normal (Normal) mg/dl Urine Nitrite Negative (Negative) Ur Leukocyte Esterase 25 H (Negative) /ul Urine RBC 0 SEEN (0-5) /hpf Urine WBC 0-5 SEEN (0-5) /hpf Ur Squamous Epith Cells 0-5 SEEN (5-10) /hpf Urine Bacteria 0 SEEN (None Seen) /hpf Urine Mucus 0 SEEN (<or=2+) /hpf Vag Amniotic Fld Detect Negative (Negative)
== END 2019-04-16 17:40 | disposition home or self-care (01) ==
LOC: WPOUT 14:43 → WP 14:44
PROVIDERS: Referring Provider Obstetrics & Gynecology; Visit Provider Obstetrics & Gynecology
DX: O47.9 False labor, unspecified (principal); Z3A.00 Weeks of gestation of pregnancy not specified
CPT/HCPCS: 59025; 59050; 76815; 81001; 84112; 99218; G0378

== ENCOUNTER 2019-04-27 00:05 | Inpatient (IN) | payer OTHER, SELFPAY ==
[2019-04-24 11:20] VITALS: BMI 40.1
[2019-04-27] MEDS: Lactated Ringers 1,000 ML 50 ML IV ×4 (00:52→09:10)
[2019-04-27 00:57] VITALS: BMI 40.2
[2019-04-27 01:03] LABS: Absolute Lymphocyte Count 2.63 X10^3/uL (0.83-4.51); Absolute Neutrophil Count 10.8 X10^3/uL (2.0-7.7); Basophil# 0.04 X10^3/uL; Basophil% 0.3 % (0-1); Eosinophils% 0.7 % (0-5); Hematocrit 34.7 % (37-47); Hemoglobin 11.5 g/dL (12.0-15.0); Lymphocyte # 2.63 X10^3/ul (4.0); Lymphocyte % 18.3 % (19-41); Mean Corp Hgb Conc 33.1 g/dL (32-36); Mean Corpuscular Hgb 28.6 pg (27.0-32.0); Mean Corpuscular Volume 86.3 fL (81-99); Mean Platelet Vol. 11.1 fl (6.2-12.0); Monocyte# 0.71 X10^3/uL; Monocyte% 4.9 % (0-10); NRBC Flagged by Analyzer 0 % (0-5); Neutrophil # 10.79 X10^3/uL (2.7-7.7); Neutrophil % 75.1 % (47-70); Platelet Count 265 K/mm3 (150-450); RBC Distribution Width CV 13.6 % (11.6-14.6); RBC Distribution Width SD 42.6 fl (35.1-43.9); Red Blood Count 4.02 M/mm3 (4.2-5.4); White Blood Count 14.4 K/mm3 (4.4-11.0)
[2019-04-27] MEDS: fentaNYL-bupivacaine (epidural) 100 ML BAG EPIDURAL ×2 (02:57→06:54)
--- NOTE | 2019-04-27 05:36 | PCM.HP.OB ---
- Problem List (1) Active labor at term Status: Acute (2) GBS (group B Streptococcus carrier), +RV culture, currently Status: Acute (3) Anemia affecting , antepartum Status: Acute Comment: iron, check cbc at 34 weeks (4) Obesity affecting Status: Acute Qualifiers: Comment: 1 tm glucannmarie, discussed healthy weight gain, plan growth US at 32 and 36 weeks and weekly nsts after 36 weeks (5) Status: Acute Qualifiers: Comment: genetic, ntd, and carrier screening declined. Normal ultrasound (6) Supervision of high risk , antepartum Status: Acute Comment: PRR MADISON 05/08/19 girl Suresh (7) with history of infertility Status: Acute Qualifiers: Comment: conceived on femara History Date of Admission: 04/27/19 Final MADISON: 05/08/19 Gestational age: 38 Weeks and 3 Days History of this : This is a 23 year-old, , at 38 weeks gestational age presents in active labor 6 cm. After being admitted patient had clear rupture of membranes spontaneously. Patient has had an uncomplicated denies any vaginal bleeding admits good movement.. Allergies No Known Allergies Allergy (Verified 04/27/19 00:55) Home Medications: Home Medications Calcium Carbonate [Tums] 1,000 mg PO Q6H PRN PRN 04/16/19 Vits [Prenatabs FA] 1 tab PO DAILY 04/16/19 Smoking Status: Former smoker Alcohol: None Number of Fetus(es): 1 Heart Tracin moderate variability reactive no decelerations category I tracing [place]: regular History Past Pregnancies: Past Pregnancies Delivery Date Name GA/Weeks Outcome Route Weight Gender Labor Length Anesthesia Delivery Location Provider FOB Labs: Mom's Labs & Results 04/27/19 04/27/19 00:52 00:52 WBC 14.4 H RBC 4.02 L Hgb 11.5 L Hct 34.7 L MCV 86.3 MCH 28.6 MCHC 33.1 RDW Std Deviation 42.6 RDW Coeff of Alicia 13.6 Plt Count 265 MPV 11.1 Immature Gran % (Auto) 0.700 Neut % (Auto) 75.1 H Lymph % (Auto) 18.3 L [place] % (Auto) 4.9 Eos % (Auto) 0.7 Baso % (Auto) 0.3 Absolute Neuts (auto) 10.8 H Absolute Lymphs (auto) 2.63 Nucleated RBC % 0 Blood Type A POSITIVE Antibody Screen NEGATIVE Course Did the patient receive Yes care? Labs Blood Type: A RH: POSITIVE RPR/VDRL/Syphilis Nonreactive Rubella status Immune HbSAg Negative Date Done: 09/03/18 Chlamydia Negative Gonorrhea Negative HIV/AIDS Non-Reactive Group B Strep: Positive Current Obstetrical History Gestational Diabetes No Incompetent Cervix No Infertility Yes IUGR No Macrosomia Yes Hypertension/Pre-eclampsia No Placenta Previa/Abruption No PTL/PROM No Uterine anomaly No Oligohydramnios No Polyhydramnios Yes Multiple gestation No Past Medical History Asthma Yes: no inhaler Diabetes No Hypertension No Heart disease No Mitral valve prolapse No Neurologic/Seizure disorder/ No Migraines Kidney disease No Liver disease No Varicosities No Clotting disorders/Hx of DVT No Thyroid Dysfunction No Other medical diseases No Psychiatric disorders No Major trauma No Abnormal PAP smear No Sleep apnea No Mammogram in the last 2 years No Social History Marital Status: Alleged father Suresh Hx Smoking Yes Smoking Status Former smoker Expected Infant Delivery Method: Spontaneous Vaginal Review of Systems Constitutional: Denies: Fever, Malaise Eyes: Denies: Blurred vision, Vision Change HEENT: Denies: Head Aches, Visual Changes Cardiovascular: Denies: Chest Pain, Palpitations Respiratory: Denies: Cough, Shortness of Breath, Wheezing Gastrointestinal: Denies: Abdominal Pain, Diarrhea, Nausea, Vomiting Genitourinary: Denies: Dysuria, Hematuria Musculoskeletal: Denies: Joint Pain, Muscle pain Skin: Denies: Lesions, Rash Neurological: Denies: Blurred vision, Focal weakness, Headaches Psychiatric: Denies: Anxiety, Depression Endocrine: Denies: Heat/ Cold Intolerance Hematologic/ Lymphatic: Denies: Easy Bruising, Easy Bleeding Physical Exam General: Alert, Cooperative, No apparent distress HEENT: Atraumatic, Normocephalic. Negative for: Thyromegaly, Lymphadenopathy Cardiovascular: Regular rate Lungs: Normal air movement Abdomen: Soft, Non Tender, Gravid Neurological: Deep Tendon Reflexes 2+/4 and Symmetrical, Neuro grossly intact. Negative for: Clonus INSURANCE SPECIAL AGENT: Normal external genitalia. Negative for: Vulvar lesions Estimated gestational size: Appropriate for gestational size Presentation: Cephalic Assessment/Plan All Active Problems (Last Reviewed 04/24/19 @ 11:19 by Albertina Kumar) Active labor at term (Acute) GBS (group B Streptococcus carrier), +RV culture, currently (Acute) Anemia affecting , antepartum (Acute) Obesity affecting (Acute) (Acute) Supervision of high risk , antepartum (Acute) with history of infertility (Acute) Infertility (Resolved) Secondary oligomenorrhea (Resolved) URI (upper respiratory infection) (Resolved) This is a 23 year-old, , at 38 weeks gestational age presents IAL. Patient presents IAL, plan expectant management for , pitocin PRN. Pain management: Plans epidural. GBS positive plan IV PCN. Management of any complications: None I have reviewed the [facility] and made any clinically relevant updates.
--- NOTE | 2019-04-27 05:38 | OP.PCM_ITS ---
Problem List (1) Active labor at term Status: Acute (2) GBS (group B Streptococcus carrier), +RV culture, currently Status: Acute (3) Anemia affecting , antepartum Status: Acute Comment: iron, check cbc at 34 weeks (4) Obesity affecting Status: Acute Qualifiers: Comment: 1 tm glucannmarie, discussed healthy weight gain, plan growth US at 32 and 36 weeks and weekly nsts after 36 weeks (5) Status: Acute Qualifiers: Comment: genetic, ntd, and carrier screening declined. Normal ultrasound (6) Supervision of high risk , antepartum Status: Acute Comment: PRR MAD[place] 05/08/19 girl Suresh (7) with history of infertility Status: Acute Qualifiers: Comment: conceived on femara Vaginal Delivery Maternal Presentation: Active Labor ial 38 weeks Amniotic Membrane Rupture Type: Spontaneous Amniotic Fluid Description: Clear Final MADISON: 05/08/19 Gestational age: 38 Weeks and 3 Days Date of Procedure: 04/27/19 Pre-Operative Diagnosis: ial Post-Operative Diagnosis: same Surgery/ Procedure Performed: Spontaneous Vaginal Delivery Type of Anesthesia: Epidural Description of Procedure: Patient began pushing and delivered the head in the MARGARITA presentation. The head was delivered atraumatically. The anterior and posterior shoulders delivered without complication followed by the rest of the infant and the infant was placed on the maternal abdomen. Delayed cord clamping was employed for approximately 60 seconds. Cord was clamped and cut and gentle traction was applied to the cord and the placenta delivered spontaneously immediately following it was noted to be intact with three-vessel cord. The perineum and vagina were inspected and noted to have no laceration. EBL was 100 cc. Patient and infant tolerated delivery well. Presentation: MARGARITA Placental Delivery Description: Spontaneous Placenta Disposition: [facility] Cord Vessel Description: 3 Vessels Cord Entanglement: None Estimated Blood Loss: 100 Infant A gender: Female Episiotomy Description: None Laceration: None Medications given after delivery: IV Pitocin Complications: None Multi Select Codes - Urinary/Genital Urinary/Genital CPT Codes: 15944 Vaginal Delivery [facility]
[2019-04-27] MEDS: Terbutaline 1 MG/ML Vial 0.25 MG SC (05:40)
[2019-04-27] MEDS: Ondansetron 4 MG/2 ML Vial IV (05:59)
[2019-04-27] MEDS: Oxytocin 30 units/NS 500 ml 30 UNITS/500 ML IV.SOLN 334 UNITS IV (10:21)
[2019-04-27] MEDS: Oxytocin 30 units/NS 500 ml 30 UNITS/500 ML IV.SOLN 167 UNITS IV (10:51)
[2019-04-27 15:40] VITALS: BP 124/73; PULSE 92; RESP 18; TEMP 36.5
[2019-04-27 20:45] VITALS: BP 128/69; PULSE 100; RESP 16; TEMP 36.4; O2SAT 98
[2019-04-27] MEDS: Naproxen 250 MG Tablet 500 MG PO (22:56)
[2019-04-27 23:01] VITALS: BP 129/72; PULSE 83; RESP 16; TEMP 36.4; O2SAT 98
[2019-04-28 05:03] VITALS: BP 128/69; PULSE 74; RESP 16; TEMP 36.2; O2SAT 96
[2019-04-28 09:26] VITALS: BP 128/87; PULSE 79; RESP 18; TEMP 36.2
--- NOTE | 2019-04-28 13:59 | PCM.PN.OB ---
Patient Problems: Active and Suspected Problems (Last Reviewed 04/24/19 @ 11:19 by Albertina Kumar) Active labor at term (Acute) Subjective: doing well no complaints pain controlled no CP SOB N V ambulating well tolerating po lochia moderate, going well - Physical Exam Vital Signs Temp Pulse Resp BP Pulse Ox 97.1 F L 79 18 128/87 H 96 04/28/19 09:26 04/28/19 09:26 04/28/19 09:26 04/28/19 09:26 04/28/19 05:03 Oxygen Delivery Method Room Air Weight: 234 lb 5.622 oz Body Mass Index (BMI) 40.2 Intake and Output for Last 24 Hours 04/26/19 04/27/19 04/28/19 23:59 23:59 23:59 Intake Total 3483 / 3483 Output Total 1350 / 1350 Balance 2133 / 2133 Medical Necessity - Tobacco Use Smoking Status: Former smoker Assessment/Plan All Active Problems (Last Reviewed 04/24/19 @ 11:19 by Albertina Kumar) Active labor at term (Acute) GBS (group B Streptococcus carrier), +RV culture, currently (Acute) Anemia affecting , antepartum (Acute) Obesity affecting (Acute) (Acute) Supervision of high risk , antepartum (Acute) with history of infertility (Acute) Infertility (Resolved) Secondary oligomenorrhea (Resolved) URI (upper respiratory infection) (Resolved) s/p PPD # 1 1. routine post delivery care 2. breast feeding- support given 3. rh positive 4. rubella immune
[2019-04-28 14:00] VITALS: BP 120/68; PULSE 77; RESP 18; TEMP 37.1
--- NOTE | 2019-04-28 14:00 | DCINST_ITS ---
Discharge Diet: No Restrictions Discharge Activity: Return to Normal Activity, May not drive while taking narcotic pain medications., May Shower May resume sexual activity in: 4-6 weeks Call your doctor if your incision/area has: Continuous Slow Oozing, Sudden Increased Bleeding, Increased Pain/ Swelling, Increased Redness, Foul Smelling Discharge Additional Instructions: If you experience any of the following, contact your healthcare provider. * Bleeding that soaks a pad every hour for 2 hours * Fever 100.4 or higher * Unrelieved incision or abdominal pain * Swelling, redness, discharge or bleeding from your incision or episiotomy site * Your incision begins to separate * Problems urinating (including inability to urinate or burning while urinating). * Visual changes * Severe headache * Flu-like symptoms * Pain or redness in one of both of your breasts * Pain, warmth, tenderness or swelling in your legs, especially the calf area * Frequent nausea and vomiting * Symptoms of depression or anxiety If you experience any of the following, call 911 or go to the nearest Emergency Room. * Chest pain * Problems breathing * Seizure activity * Partial or complete paralysis of a body part, slurred speech, weakness or drooping of the face, or a sudden inability to walk or hold your balance Allergies/Adverse Reactions: Allergies No Known Allergies Allergy (Verified 04/27/19 00:55) Medications to take at Discharge Calcium Carbonate [Tums] 1,000 mg PO Q6H PRN PRN 04/16/19 Vits [Prenatabs FA] 1 tab PO DAILY 04/16/19 Please Follow Up With: Maria D Young MD - [phone] When: Call to make an appointment with your doctor in 6 weeks. If you had elevated Blood pressure or 4th degree laceration you will need to be seen in 2 weeks. Primary Care Physician: Care Physician,No Primary [Primary Care Provider] - Test Results: Test results from this visit will be discussed in further detail at your follow- up appointment, if applicable.
--- NOTE | 2019-04-28 14:00 | PCM.DCVAG ---
Discharge Diet: No Restrictions Discharge Activity: Return to Normal Activity, May not drive while taking narcotic pain medications., May Shower May resume sexual activity in: 4-6 weeks Call your doctor if your incision/area has: Continuous Slow Oozing, Sudden Increased Bleeding, Increased Pain/ Swelling, Increased Redness, Foul Smelling Discharge Additional Instructions: If you experience any of the following, contact your healthcare provider. Bleeding that soaks a pad every hour for 2 hours Fever 100.4 or higher Unrelieved incision or abdominal pain Swelling, redness, discharge or bleeding from your incision or episiotomy site Your incision begins to separate Problems urinating (including inability to urinate or burning while urinating). Visual changes Severe headache Flu-like symptoms Pain or redness in one of both of your breasts Pain, warmth, tenderness or swelling in your legs, especially the calf area Frequent nausea and vomiting Symptoms of depression or anxiety If you experience any of the following, call 911 or go to the nearest Emergency Room. Chest pain Problems breathing Seizure activity Partial or complete paralysis of a body part, slurred speech, weakness or drooping of the face, or a sudden inability to walk or hold your balance Allergies/Adverse Reactions: Allergies No Known Allergies Allergy (Verified 04/27/19 00:55) Medications to take at Discharge Calcium Carbonate [Tums] 1,000 mg PO Q6H PRN PRN 04/16/19 Vits [Prenatabs FA] 1 tab PO DAILY 04/16/19 Please Follow Up With: Maria D Young MD - [phone] When: Call to make an appointment with your doctor in 6 weeks. If you had elevated Blood pressure or 4th degree laceration you will need to be seen in 2 weeks. Primary Care Physician: Care Physician,No Primary [Primary Care Provider] - Test Results: Test results from this visit will be discussed in further detail at your follow-up appointment, if applicable.
== END 2019-04-28 15:00 | disposition home or self-care (01) | DRG 807 ==
PROVIDERS: Admitting Provider Obstetrics & Gynecology; Referring Provider Obstetrics & Gynecology; Visit Provider Obstetrics & Gynecology
DX: O99.824 Streptococcus B carrier state complicating childbirth (principal); O99.02 Anemia complicating childbirth; D64.9 Anemia, unspecified; J45.909 Unspecified asthma, uncomplicated; O99.214 Obesity complicating childbirth; E66.9 Obesity, unspecified; Z87.891 Personal history of nicotine dependence; Z3A.38 38 weeks gestation of pregnancy; Z37.0 Single live birth
CPT/HCPCS: 59025; 59050; 85025; 86850; 86900; 99218; J7120; G0378; J2405

== ENCOUNTER → 2020-05-25 13:54 | Outpatient (CLI) | payer OTHER, SELFPAY ==
[2020-05-25 13:41] VITALS: BMI 35.9
[2020-05-25 15:25] LABS: Estradiol 219.3 pg/mL; Follicle Stimulating Hormone 0.7 mIU/mL; Thyroid Stim Hormone (TSH) 1.32 uIU/mL (0.358-3.74)
== END ==
PROVIDERS: Referring Provider Nurse Practitioner Women's Health; Visit Provider Nurse Practitioner Women's Health
DX: N92.6 Irregular menstruation, unspecified (principal)
CPT/HCPCS: 36415; 82670; 83001; 84443

== ENCOUNTER → 2020-06-21 17:30 | Outpatient (CLI) | payer OTHER, SELFPAY ==
[2020-05-25 13:41] VITALS: BMI 35.9
[2020-06-21 18:53] LABS: hCG Titer Quant., Serum < 1 mIU/mL (1-3)
== END ==
PROVIDERS: Referring Provider Nurse Practitioner Women's Health; Visit Provider Nurse Practitioner Women's Health
DX: N97.9 Female infertility, unspecified (principal)
CPT/HCPCS: 36415; 84702

== ENCOUNTER 2020-08-28 18:17 | Emergency (ER) | payer OTHER, SELFPAY ==
[2020-05-25 13:41] VITALS: BMI 35.9
[2020-08-28 18:18] VITALS: BP 143/71; PULSE 87; RESP 16; TEMP 36.3; BMI 35.9
[2020-08-28 18:21] VITALS: BP 143/71; PULSE 87; RESP 16; TEMP 36.3; O2SAT 98
--- NOTE | 2020-08-28 18:50 | ED.DCSUM_ITS ---
- ER Visit Summary Date of Service: 08/28/20 Chief Complaint: Dysuria History of Present Illness: The patient is a 25 F presenting with dysuria, urinary frequency, hematuria. She states this started a few days ago. She states she has burning when she urinates. She also had a cottage cheese-like white vaginal discharge. She tried Monistat for these symptoms and vaginal discharge has improved. She is unsure if she could be . Denies fever. Denies other complaints. Physical Examination: Vitals are stable. Patient is afebrile. Alert no acute distress. HEENT exam is unremarkable. Neck is supple. Lungs are clear and equal bilaterally. Heart is regular rate and rhythm. Abdomen is soft mild suprapubic tenderness with no guarding or rebound : No vaginal discharge, no cervical motion tenderness. No adnexal tenderness Extremities are unremarkable. Skin is warm and dry. Remainder of exam is unremarkable. Emergency Department Course and Treatment: Urinalysis shows 25-50 white blood cells, 10-25 red blood cells, 4+ bacteria. Urine hCG negative. Patient was given Macrobid and a prescription for Macrobid. Her yeastlike symptoms have resolved. She is given a prescription for Diflucan should these symptoms return. Advised to follow-up with her primary care physician. Advised return to ED for worsening complaints. Disposition: Discharge home Impression: UTI This note was generated with [employer] dictation software. It may contain incorrect words, spelling, and punctuation that were not noted in review of the chart prior to signing ED Disposition - Plan for ED Patient: Instructions: ED Urinary Tract Infections in Women Prescriptions: Fluconazole [Diflucan] 150 mg PO X1 #1 tab Prescription Printed Nitrofurantoin Macrocrystals [Macrobid] 100 mg PO Q12 #10 cap Prescription Printed Referrals: Evelina Tucker NP, PUBLIC RELATIONS SENIOR ASSOCIATE-C [Primary Care Provider] -
[2020-08-28 18:56] LABS: Color, Urine Yellow (Yellow); Glucose, Dipstick Normal (Normal); Ketone-Dipstick Negative (Negative); Leukocyte Esterase-Dipstick 25 /ul (Negative); Mucous, Urine 0 SEEN /hpf (<or=2+); Nitrite-Dipstick Positive (Negative); Occult Blood-Urine 150 /ul (Negative); Protein-Dipstick 100 mg/dl (Negative); Urine Bilirubin Dipstick Negative (Negative); Urine Clarity Sl. Cloudy (Clear); Urine Urobilinogen Normal (Normal)
[2020-08-28 19:06] LABS: Red Blood Cells-Urine 10-25 SEEN /hpf (0-5)
[2020-08-28 19:07] LABS: Bacteria 4+ /hpf (None Seen); Internal QC Validated? YES +Cl - CLEAR BKGD; Pregnancy, Urine Negative Negative; Squamous Epithelial Cells - UA 0-5 SEEN /hpf (5-10); White Blood Cells 25-50 SEEN /hpf (0-5)
--- NOTE | 2020-08-28 19:13 | DCINST.ED_ITS ---
ED Disposition - Plan for ED Patient: Instructions: ED Urinary Tract Infections in Women Prescriptions: Fluconazole [Diflucan] 150 mg PO X1 #1 tab Prescription Printed Nitrofurantoin Macrocrystals [Macrobid] 100 mg PO Q12 #10 cap Prescription Printed Referrals: Evelina Tucker NP, VIDEOTAPE SALES REPRESENTATIVE-C [Primary Care Provider] -
[2020-08-28 19:16] VITALS: BP 117/73; PULSE 81; RESP 16
[2020-08-28] MEDS: Nitrofurantoin Macrocrystals 100 MG Capsule PO (19:20)
== END 2020-08-28 19:21 | disposition home or self-care (01) ==
LOC: ED 19:10
PROVIDERS: Emergency Provider Emergency Medicine; PCP Nurse Practitioner Family
DX: N39.0 Urinary tract infection, site not specified (principal); N89.8 Other specified noninflammatory disorders of vagina; Z72.0 Tobacco use
CPT/HCPCS: 81001; 81025; 99283

== ENCOUNTER → 2020-11-17 | Outpatient (CLI) | payer OTHER, SELFPAY ==
[2020-11-17 11:28] VITALS: BMI 36.9
[2020-11-17 18:28] LABS: Amphetamine Urine VISTA NEGATIVE (<1000 ng/mL); Barbiturate Urine VISTA NEGATIVE (< 200 ng/mL); Benzodiazepine Urine VISTA NEGATIVE (< 200 ng/mL); Cocaine Urine VISTA NEGATIVE (< 300 ng/mL); Ecstacy Urine VISTA NEGATIVE (< 500 ng/mL); Methadone Urine VISTA NEGATIVE (< 300 ng/mL); PCP Urine VISTA NEGATIVE (< 25 ng/mL); THC Urine VISTA NEGATIVE (< 50 ng/mL); Vista UDS pH Range 6
[2020-11-21 20:07] LABS: Chlamydia By Nucleic Acid AMP Negative (Negative)
[2020-11-21 20:58] LABS: Gonococcus By Nucleic Acid AMP Negative (Negative)
[2020-11-22 15:30] LABS: HPV Reflexed? NOT INDICATED
== END | disposition home or self-care (01) ==
PROVIDERS: PCP Nurse Practitioner Family; Visit Provider Obstetrics & Gynecology
DX: O09.90 Supervision of high risk pregnancy, unspecified, unspecified trimester (principal); Z12.4 Encounter for screening for malignant neoplasm of cervix; Z3A.00 Weeks of gestation of pregnancy not specified
CPT/HCPCS: 80307; 87086; 87088; 87491; 87591; 88175; G0145

== ENCOUNTER → 2020-11-24 12:48 | Outpatient (CLI) | payer OTHER, SELFPAY ==
[2020-11-17 11:28] VITALS: BMI 36.9
[2020-11-24 13:29] LABS: Absolute Lymphocyte Count 2.22 X10^3/uL (0.83-4.51); Absolute Neutrophil Count 8.2 X10^3/uL (2.0-7.7); Basophil# 0.04 X10^3/uL; Basophil% 0.4 % (0-1); Eosinophils% 1.8 % (0-5); Hematocrit 40.3 % (37-47); Hemoglobin 13.1 g/dL (12.0-15.0); Lymphocyte # 2.22 X10^3/ul (4.0); Lymphocyte % 19.7 % (19-41); Mean Corp Hgb Conc 32.5 g/dL (32-36); Mean Corpuscular Hgb 28.9 pg (27.0-32.0); Mean Platelet Vol. 10.2 fl (6.2-12.0); Monocyte# 0.56 X10^3/uL; NRBC Flagged by Analyzer 0 % (0-5); Neutrophil # 8.19 X10^3/uL (2.7-7.7); Neutrophil % 72.6 % (47-70); Platelet Count 339 K/mm3 (150-450); RBC Distribution Width CV 12.6 % (11.6-14.6); RBC Distribution Width SD 40.7 fl (35.1-43.9); Red Blood Count 4.53 M/mm3 (4.2-5.4); White Blood Count 11.3 K/mm3 (4.4-11.0)
[2020-11-24 13:48] LABS: Glucose Challenge Gest 1H 50g 98 mg/dL (70-140)
[2020-11-24 14:37] LABS: HIV - WCH Non-Reactive (Nonreactive); Hepatitis B Surface Antigen Non-Reactive (Nonreactive); Hepatitis C Antibody Non-Reactive (Nonreactive); Rubella IgG Reactive (Nonreactive)
[2020-11-25 10:46] LABS: Syphilis Antibodies Non-reactive
== END ==
PROVIDERS: PCP Nurse Practitioner Family; Referring Provider Obstetrics & Gynecology; Visit Provider Obstetrics & Gynecology
DX: O09.90 Supervision of high risk pregnancy, unspecified, unspecified trimester (principal); O99.210 Obesity complicating pregnancy, unspecified trimester; E66.9 Obesity, unspecified; Z3A.00 Weeks of gestation of pregnancy not specified
CPT/HCPCS: 36415; 82950; 85025; 86703; 86762; 86803; 86850; 86900; 86901; 87340

== ENCOUNTER → 2020-12-15 10:28 | Outpatient (CLI) | payer OTHER, SELFPAY ==
[2020-12-15 09:57] VITALS: BMI 36.3
[2020-12-15 11:40] LABS: NATERA MAILED SPECIMEN
== END ==
PROVIDERS: PCP Nurse Practitioner Family; Referring Provider Obstetrics & Gynecology; Visit Provider Obstetrics & Gynecology
DX: Z34.81 Encounter for supervision of other normal pregnancy, first trimester (principal)
CPT/HCPCS: 36415

== ENCOUNTER → 2021-04-06 11:51 | Outpatient (CLI) | payer OTHER, MEDICAID, SELFPAY ==
[2021-04-06 11:34] VITALS: BMI 36.3
[2021-04-06 12:47] LABS: Absolute Lymphocyte Count 1.73 X10^3/uL (0.83-4.51); Basophil# 0.02 X10^3/uL; Basophil% 0.2 % (0-1); Eosinophil# 0.15 X10^3/uL; Eosinophils% 1.2 % (0-5); Hematocrit 33.1 % (37-47); Hemoglobin 10.9 g/dL (12.0-15.0); Lymphocyte # 1.73 X10^3/ul (0.83-4.51); Lymphocyte % 13.8 % (19-41); Mean Corp Hgb Conc 32.9 g/dL (32-36); Mean Corpuscular Hgb 29.3 pg (27.0-32.0); Mean Platelet Vol. 10.2 fl (6.2-12.0); Monocyte# 0.47 X10^3/uL; Monocyte% 3.7 % (0-10); NRBC Flagged by Analyzer 0 % (0-5); Neutrophil # 10.04 X10^3/uL (2.7-7.7); Neutrophil % 80.1 % (47-70); Platelet Count 246 K/mm3 (150-450); RBC Distribution Width CV 13.8 % (11.6-14.6); RBC Distribution Width SD 44.8 fl (35.1-43.9); Red Blood Count 3.72 M/mm3 (4.2-5.4); White Blood Count 12.5 K/mm3 (4.4-11.0)
[2021-04-06 12:54] LABS: Glucose Challenge Gest 1H 50g 166 mg/dL (70-140)
== END ==
PROVIDERS: PCP Nurse Practitioner Family; Referring Provider Nurse Practitioner Women's Health; Visit Provider Nurse Practitioner Women's Health
DX: O09.90 Supervision of high risk pregnancy, unspecified, unspecified trimester (principal); Z3A.00 Weeks of gestation of pregnancy not specified; Z13.1 Encounter for screening for diabetes mellitus
CPT/HCPCS: 36415; 82950; 85025

== ENCOUNTER → 2021-04-10 10:00 | Outpatient (CLI) | payer OTHER, MEDICAID, SELFPAY ==
[2021-04-06 11:34] VITALS: BMI 36.3
[2021-04-10 11:14] LABS: Glucose GTT-Gestation. Fasting 82 mg/dL (<105)
[2021-04-10 11:59] LABS: Glucose GTT-Gestational 1 Hr 165 mg/dL (<190)
[2021-04-10 14:08] LABS: Glucose GTT-Gestational 2 Hr 143 mg/dL (<165)
[2021-04-10 14:09] LABS: Glucose GTT-Gestational 3 Hr 148 L (<145)
== END ==
PROVIDERS: PCP Nurse Practitioner Family; Referring Provider Obstetrics & Gynecology; Visit Provider Obstetrics & Gynecology
DX: Z13.1 Encounter for screening for diabetes mellitus (principal)
CPT/HCPCS: 36415; 82951; 82952

== ENCOUNTER 2021-05-06 22:30 | Outpatient (CLI) | payer OTHER, MEDICAID, SELFPAY ==
[2021-04-27 11:19] VITALS: BMI 36.3
[2021-05-06 22:50] VITALS: BMI 38.0
[2021-05-06 22:55] VITALS: TEMP 36.3
[2021-05-06 22:56] VITALS: BP 114/67; PULSE 86; O2SAT 78
[2021-05-06 23:00] VITALS: PULSE 94; O2SAT 98
[2021-05-07 00:35] VITALS: BP 127/77; PULSE 76; TEMP 36.1
--- NOTE | 2021-05-08 09:17 | OB.TRI.PN_ITS ---
Progress Notes Date of Service: 05/06/21 Progress Note: Patient presents for triage evaluation secondary to contractions. Cervix 1cm. No contractions noted. Rechecked 2 hours later and cervix unchanged. FHT: Moderate variability reactive no decelerations category I tracing [place]: No Contractions Assessment and plan: Reactive NST, reassuring maternal and status patient discharged to home to follow-up at next scheduled visit. See problem list details for additional plan information. Charges/Coding Procedures Urinary/Genital 52xxx-59xxx: 90113-57 non-stress test Interp
== END 2021-05-07 00:45 | disposition home or self-care (01) ==
LOC: WPOUT 22:36 → WP 22:48
PROVIDERS: PCP Nurse Practitioner Family; Referring Provider Obstetrics & Gynecology; Visit Provider Obstetrics & Gynecology
DX: O47.9 False labor, unspecified (principal); Z3A.00 Weeks of gestation of pregnancy not specified
CPT/HCPCS: 59025; 59050; 99218; G0378

== ENCOUNTER → 2021-05-11 | Outpatient (CLI) | payer OTHER, MEDICAID, SELFPAY | END | disposition home or self-care (01) | PROVIDERS: PCP Nurse Practitioner Family; Referring Provider Obstetrics & Gynecology; Visit Provider Obstetrics & Gynecology | DX: N89.8 Other specified noninflammatory disorders of vagina (principal) | CPT/HCPCS: 87070; 87205 ==

== ENCOUNTER 2021-05-12 22:25 | Outpatient (CLI) | payer OTHER, MEDICAID, SELFPAY ==
[2021-05-12 22:33] VITALS: BMI 37.9
[2021-05-12 22:37] VITALS: BP 121/58; PULSE 104; TEMP 35.8; O2SAT 96
[2021-05-12 23:11] LABS: ROM Internal Control Test YES-OK TO RESULT pt. (Internal QC); ROM Patient Test Negative (Negative)
--- NOTE | 2021-05-17 08:09 | OB.TRI.PN_ITS ---
Progress Notes Date of Service: 05/12/21 Progress Note: Patient presents for triage evaluation secondary to leakage of fluid. ROM negative. Not eliud. FHT: Moderate variability reactive no decelerations category I tracing [place]: No Contractions Assessment and plan: Reactive NST, reassuring maternal and status patient discharged to home to follow-up at next scheduled visit. See problem list details for additional plan information. Laboratory Studies: Laboratory Tests 05/12/21 Range/Units 22:45 Vag Amniotic Fld Detect Negative (Negative) Charges/Coding Procedures Urinary/Genital 52xxx-59xxx: 43264-38 non-stress test Interp
== END 2021-05-12 23:25 | disposition home or self-care (01) ==
LOC: WP 22:35 → WPOUT 22:35
PROVIDERS: PCP Nurse Practitioner Family; Visit Provider Obstetrics & Gynecology
DX: O42.90 Premature rupture of membranes, unspecified as to length of time between rupture and onset of labor, unspecified weeks of gestation (principal); Z3A.00 Weeks of gestation of pregnancy not specified
CPT/HCPCS: 59025; 59050; 84112

== ENCOUNTER → 2021-06-08 11:59 | Outpatient (CLI) | payer OTHER, MEDICAID, SELFPAY ==
[2021-06-08 12:54] LABS: Absolute Lymphocyte Count 1.73 X10^3/uL (0.83-4.51); Absolute Neutrophil Count 6.6 X10^3/uL (2.0-7.7); Basophil# 0.02 X10^3/uL; Basophil% 0.2 % (0-1); Eosinophil# 0.09 X10^3/uL; Hematocrit 33.6 % (37-47); Lymphocyte # 1.73 X10^3/ul (0.83-4.51); Lymphocyte % 19.1 % (19-41); Mean Corp Hgb Conc 32.7 g/dL (32-36); Mean Corpuscular Hgb 29.3 pg (27.0-32.0); Mean Corpuscular Volume 89.4 fL (81-99); Mean Platelet Vol. 10.7 fl (6.2-12.0); Monocyte% 5.5 % (0-10); NRBC Flagged by Analyzer 0 % (0-5); Neutrophil # 6.64 X10^3/uL (2.7-7.7); Neutrophil % 73.1 % (47-70); Platelet Count 212 K/mm3 (150-450); RBC Distribution Width CV 14.8 % (11.6-14.6); Red Blood Count 3.76 M/mm3 (4.2-5.4); White Blood Count 9.1 K/mm3 (4.4-11.0)
== END ==
PROVIDERS: Nurse Practitioner Women's Health; PCP Nurse Practitioner Family; Referring Provider Obstetrics & Gynecology; Visit Provider Obstetrics & Gynecology
DX: O09.93 Supervision of high risk pregnancy, unspecified, third trimester (principal); O99.013 Anemia complicating pregnancy, third trimester; D64.9 Anemia, unspecified; Z3A.32 32 weeks gestation of pregnancy
CPT/HCPCS: 36415; 85025; 87081

== ENCOUNTER 2021-06-16 03:45 | Outpatient (CLI) | payer OTHER, MEDICAID, SELFPAY ==
[2021-06-16 03:48] VITALS: BMI 37.4
[2021-06-16 04:01] VITALS: BP 119/77; PULSE 89; PULSE 96; TEMP 36.2; O2SAT 96
--- NOTE | 2021-06-23 17:17 | OB.TRI.PN ---
Progress Notes Date of Service: 06/16/21 Progress Note: Patient presents for triage evaluation secondary to contractions. Cervix unchanged from prior exam and same on recheck FHT: Moderate variability reactive no decelerations category I tracing [employer]: Irregular Contractions Assessment and plan: Reactive NST, reassuring maternal and status patient discharged to home to follow-up at next scheduled visit. See problem list details for additional plan information. Charges/Coding Procedures Urinary/Genital 52xxx-59xxx: 46620-03 non-stress test Interp
== END 2021-06-16 05:25 | disposition home or self-care (01) ==
LOC: WPOUT 03:47 → WP 03:47
PROVIDERS: PCP Nurse Practitioner Family; Visit Provider Obstetrics & Gynecology
DX: O62.9 Abnormality of forces of labor, unspecified (principal); Z3A.00 Weeks of gestation of pregnancy not specified
CPT/HCPCS: 59025; 59050; 99218; G0378

== ENCOUNTER 2021-06-22 22:30 | Outpatient (CLI) | payer OTHER, MEDICAID, SELFPAY ==
[2021-06-22 22:40] VITALS: BP 124/68; PULSE 100; RESP 18; TEMP 36.4; O2SAT 99
--- NOTE | 2021-06-22 22:47 | OB.TRI.PN ---
Progress Notes Date of Service: 06/22/21 Progress Note: Patient presents for triage evaluation secondary to contractions FHT: 140 Moderate variability reactive no decelerations category I tracing [place]: irregular Contractions Assessment and plan: suspected labor Reactive NST, reassuring maternal and status patient discharged to home to follow-up as scheduled. romplus neg. See problem list details for additional plan information. Charges/Coding Procedures Urinary/Genital 52xxx-59xxx: 28802-04 non-stress test Interp Assessment & Plan (1) False labor: PLAN: labor ruled out
[2021-06-22 23:06] VITALS: BMI 36.0
[2021-06-22 23:56] LABS: Color, Urine Yellow (Yellow); Glucose, Dipstick Normal (Normal); Ketone-Dipstick 15 mg/dl (Negative); Leukocyte Esterase-Dipstick 100 /ul (Negative); Nitrite-Dipstick Negative (Negative); Occult Blood-Urine 10 /ul (Negative); Protein-Dipstick 30 mg/dl (Negative); Red Blood Cells-Urine 0 SEEN /hpf (0-5); Urine Bilirubin Dipstick Negative (Negative); Urine Clarity Clear (Clear); Urine Urobilinogen 1 mg/dl (Normal); Urine pH 6.5 (5.0 - 8.0)
[2021-06-23 00:06] LABS: Bacteria 1+ /hpf (None Seen); Mucous, Urine RARE /hpf (<or=2+); Squamous Epithelial Cells - UA 0-5 SEEN /hpf (5-10); White Blood Cells 5-10 SEEN /hpf (0-5)
[2021-06-23 00:24] LABS: ROM Internal Control Test YES-OK TO RESULT pt. (Internal QC); ROM Patient Test Negative (Negative)
== END 2021-06-23 00:35 | disposition home or self-care (01) ==
LOC: WPOUT 22:42 → OBT 22:43
PROVIDERS: PCP Nurse Practitioner Family; Visit Provider Obstetrics & Gynecology
DX: O47.9 False labor, unspecified (principal); Z3A.00 Weeks of gestation of pregnancy not specified
CPT/HCPCS: 59025; 59050; 81001; 84112; 87086; 87088; 99218; G0378

== ENCOUNTER 2021-07-01 19:30 | Inpatient (IN) | payer OTHER, MEDICAID, SELFPAY ==
[2021-07-01] VITALS (18 sets, daily range): BP systolic 120–131; BP diastolic 58–77; PULSE 100–117; TEMP 35.9–36.5; O2SAT 97–100; BMI 37.2
[2021-07-01 17:56] LABS: ROM Internal Control Test YES-OK TO RESULT pt. (Internal QC); ROM Patient Test Negative (Negative)
[2021-07-01] MEDS: Lactated Ringers 1,000 ML 50 ML IV (19:45)
[2021-07-01 20:02] LABS: Absolute Lymphocyte Count 1.38 X10^3/uL (0.83-4.51); Absolute Neutrophil Count 8.9 X10^3/uL (2.0-7.7); Basophil# 0.04 X10^3/uL; Basophil% 0.4 % (0-1); Eosinophil# 0.08 X10^3/uL; Eosinophils% 0.7 % (0-5); Hematocrit 39.4 % (37-47); Hemoglobin 12.8 g/dL (12.0-15.0); Lymphocyte # 1.38 X10^3/ul (0.83-4.51); Lymphocyte % 12.4 % (19-41); Mean Corp Hgb Conc 32.5 g/dL (32-36); Mean Corpuscular Hgb 28.8 pg (27.0-32.0); Mean Corpuscular Volume 88.5 fL (81-99); Mean Platelet Vol. 10.4 fl (6.2-12.0); Monocyte# 0.62 X10^3/uL; Monocyte% 5.6 % (0-10); NRBC Flagged by Analyzer 0 % (0-5); Platelet Count 265 K/mm3 (150-450); RBC Distribution Width CV 14.6 % (11.6-14.6); RBC Distribution Width SD 46.5 fl (35.1-43.9); Red Blood Count 4.45 M/mm3 (4.2-5.4); White Blood Count 11.1 K/mm3 (4.4-11.0)
--- NOTE | 2021-07-01 20:04 | HP.PCM.OB_ITS ---
HPI - General General Date of Admission: 07/01/21 HPI Narrative NATHANAEL ELIZABETH, is a 25 F who presents Maternal Data Information MADISON Calculator Estimated Delivery Date Method Current WG Current Estimate 07/02/21 Manual 39w [facility]d [facility] Medical History (Updated 07/01/21 @ 20:[address] Amelia Casitllo MD) Abnormal glucose affecting Anemia Depression Infertility Obesity Home Medications [id number] [] 1 tab PO DAILY 05/12/21 [History Last Taken 06/29/21] sertraline [Zoloft] 50 mg PO DAILY 05/12/21 [History Last Taken 06/29/21] Allergy/AdvReac Type Severity Reaction Status Date / Time No Known Allergies Allergy Verified 06/29/21 11:46 Family History Mother Diabetes Surgical History No significant past surgical history Social History household members: family housing: house number of children: 1 current occupational status: employed current occupation: [employer] pets and animals: Yes Smoking Status: Former smoker second hand exposure: Yes alcohol intake: never details: social substance use type: does not use caffeine: Yes what type of physical activity do you participate in: none seatbelt use: always do you feel safe at home: Yes 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 Date Name GA/Weeks Outcome Route Bth Weight Gen Labor Lgth Anesthesia Del Locatn Provider FOB 04/27/19 Antonella 38 live - full term 7lbs 13oz Female 13.5 hours epidural [facility] Suresh Delivery Date: 04/27/19 no complications with delivery Erinn Geiger Visit Details Expected Delivery Route/Plan Labor Preferences- CB/BF classes: no labor support person: Suresh labor intervention preferences: pain management options preferred: epidural cut cord/dad catch: yes : yes PP control planned: PPBTL - T19 8/5 discussed possible routes of delivery and associated risks: [] special requests: [] Plans flu vaccine: no tdap vaccine: no rhogam: NA LARC form signed: yes Problem list reviewed and updated with the most current plan of care details and appropriate orders placed. Relevant counseling for the gestational age provided. Continue routine care and follow up unless otherwise noted in visit notes/problem list details OB Flowsheet Initial Weight: Not Recorded Date -?-?-?-?-?-?-?-?-?-?-?-?- EGA Weight BP Urine Prot -?-?-?-?-?-?-?-?-?-?-?-?- Glucose FHR FuHt Pres Dilation -?-?-?-?-?-?-?-?-?-?-?-?- Effaced St Visit Note 05/31/21 -?-?-?-?-?-?-?-?-?-?-?-?- 35w 3d 224 lb 118/70 Negative -?-?-?-?-?-?-?-?-?-?--?-?- Negative 149 -?-?-?-?-?-?-?-?-?-?-?-?- MH-NO VB, lof. G ood FM. Growth US is scheduled. 06/08/21 -?-?-?-?-?-?-?-?-?-?-?-?- 36w 4d 222 lb 2 oz 110/80 Nega tive -?-?-?-?-?-?-?-?-?-?-?-?- Negative 145 37 Cephalic 1 -?-?-?-?-?-?-?-?-?-?-?-?- 50 -3 GP - no LO F, VB, regular ctx. DFM over last 2 days - NST done in office and reactive GP - no LOF, VB, regular ctx . DFM over last 2 days - NST done in office and reactive. GBS done today. 06/15/21 -?-?-?-?-?-?-?-?-?-?-?-?- 37w 4d 220 lb 2 oz 128/80 Nega tive -?-?-?-?-?-?-?-?-?-?-?-?- Negative 145 39 Cephalic 3 -?-?-?-?-?-?-?-?-?-?-?-?- 60 -3 GP - no LO F, VB, dFM, ctx. Denies complaints. 06/20/21 -?-?-?-?-?-?-?-?-?-?-?-?- 38w 2d 219 lb 100/80 Negative -?-?-?-?-?-?-?-?-?-?-?-?- Negative 140 39 Cephalic 3 -?-?-?-?-?-?-?-?-?-?-?-?- 70 -1 SM- no vb lof good fm no regular ctx 06/29/21 -?-?-?-?-?-?-?-?-?-?-?-?- 39w 4d 220 lb 8 oz 110/80 Nega tive -?-?-?-?-?-?-?-?-?-?-?-?- Negative 140 39 Cephalic 4 -?-?-?-?-?-?-?-?-?-?-?-?- 70 -1 GP - no LO F, VB, DFM, ctx. Membranes swept. 07/01/21 -?-?-?--?-?-?-?-?-?-?-?-?- 39w 6d 217 lb 131/67 -?-?-?-?-?-?-?-?-?-?-?-?- -?-?-?-?-?-?-?-?-?-?-?-?- NST FHR Rate Baby A Baseline: 130 Variability:: Moderate Accelerations:: 15 x 15 Decelerations:: None NST Reactive:: Yes FHR Category:: Category I Uterine Activity:: q2-3 min ROS Eyes Eyes: Reports systems reviewed and no addt'l complaints, except as documented ENT HEENT: Reports systems reviewed and no addt'l complaints, except as documented Cardiovascular Cardiovascular: Reports systems reviewed and no addt'l complaints, except as documented Respiratory/Chest Respiratory/Chest: Reports systems reviewed and no addt'l complaints, except as documented Gastrointestinal Gastrointestinal: Reports systems reviewed and no addt'l complaints, except as documented Genitourinary Genitourinary: Reports systems reviewed and no addt'l complaints, except as documented Musculoskeletal Musculoskeletal: Reports systems reviewed and no addt'l complaints, except as documented Integumentary Integumentary: Reports systems reviewed and no addt'l complaints, except as documented Neurologic Neurologic: Reports systems reviewed and no addt'l complaints, except as documented Psychiatric Psychiatric: Reports systems reviewed and no addt'l complaints, except as documented Endocrine Endocrinology: Reports systems reviewed and no addt'l complaints, except as documented Hematologic/Lymphatic Hematologic/Lymphatic: Reports systems reviewed and no addt'l complaints, except as documented Allergic/Immunologic Allergic/Immunologic: Reports systems reviewed and no addt'l complaints, except as documented Vital Signs Vital Signs Vital Signs: 07/01/21 17:16 07/01/21 17:17 Temperature 97.5 F L Pulse Rate 101 H Blood Pressure 131/67 H BP Systolic 131 BP Diastolic 67 Weight Weight: 217 lb Body Mass Index (BMI) 37.2 Physical Exam Const alert, oriented x3, no apparent distress, average body habitus, healthy appearing and well nourished HEENT normocephalic and moist oral mucous membranes Head and Scalp: atraumatic Eyes PERRL and EOMs intact bilaterally Neck full ROM Resp normal respiratory effort, no retractions and no use of accessory muscles Cardio regular rate and regular rhythm GI soft to palpation, non-tender and non-distended Extremity normal to inspection and full ROM Skin no rashes or lesions noted Neuro no focal motor deficits and no sensory deficits noted Psych mental status grossly normal, affect normal, speech normal and activity/motor behavior normal Labs Labs Labs: Blood Type A POSITIVE Antibody Screen NEGATIVE Hct 39.4 % (37-47) Hgb 12.8 g/dL (12.0-15.0) Obstetrics US Syphilis Total Ab Non-reactive Rubella IgG Antibody Reactive (Nonreactive) Hep Bs Antigen Non-Reactive (Nonreactive) Neisseria gonorrhoeae DNA (GEOFFREY) Negative (Negative) HIV 1&2 Antibody Non-Reactive (Nonreactive) C.trachomatis DNA (PCR) Negative (Negative) Glucose 1 Hr 50 gm 166 mg/dL (70-140) H Rhogam given: No Assessment & Plan (1) Obesity affecting : QUALIFIERS: Trimester: first trimester Qualified Code(s): O99.211 - Obesity complicating , first trimester COMMENT: 1 hr GCT at [facility]- . encouraged healthy weight gain; NL growth 04/17 f/u 4wk, 05/15 growth nl, 06/12 growth nl (2) Supervision of high risk , antepartum: COMMENT: PRR Boy! Sergiot MADISON: 06/22/21 PC: Antonella BF: Suresh (3) H/O depression, currently : COMMENT: zoloft restarted, counseling encouraged. Stable (4) Sterilization: COMMENT: title 19 signed 04/27 (5) COVID-19 affecting , antepartum: COMMENT: baby ASA started; already getting growth US. growth 93% (6) : QUALIFIERS: Weeks of gestation: 39 weeks Qualified Code(s): Z3A.39 - 39 weeks gestation of COMMENT: genetic- low risk; declined ntd and carrier screening. 02/06/21 nl anatomy with limited views, f/u 2 weeks; NEG GBS (7) Macrosomia: COMMENT: EFW 93%ile (8) Anemia: QUALIFIERS: Anemia type: iron deficiency Iron deficiency anemia type: unspecified iron deficiency Qualified Code(s): D50.9 - Iron deficiency anemia, unspecified COMMENT: Not taking FE. Will start. Rpt CBC 2 weeks:HGB WNL (9) Abnormal glucose affecting : COMMENT: nl 3 hr GTT (10) Active labor at term: PLAN: Patient presents IAL, plan expectant management for , pitocin/AROM PRN if needed. Pain management: desires natural but open to epidural. GBS negative. Management of any complications: none I have reviewed the [facility] and made any clinically relevant updates.
[2021-07-01] MEDS: Lactated Ringers 500 ML 999 ML IV (20:45)
[2021-07-01] MEDS: Oxytocin 30 units/NS 500 ml 30 UNITS/500 ML IV.SOLN 334 UNITS IV (22:08)
--- NOTE | 2021-07-01 22:26 | OP.PCM_ITS ---
Assessment & Plan (1) Vaginal delivery: COMMENT: GP IAL 07/01 - shoulder dystocia Boy-Keith (2) Active labor at term: (3) Obesity affecting : QUALIFIERS: Trimester: first trimester Qualified Code(s): O99.211 - Obesity complicating , first trimester COMMENT: 1 hr GCT at [facility]- NL. encouraged healthy weight gain; NL growth 04/17 f/u 4wk, 05/15 growth nl, 06/12 growth nl (4) Supervision of high risk , antepartum: COMMENT: PRR Boy! Keith MADISON: 06/22/21 PC: Antonella BF: Suresh (5) H/O depression, currently : COMMENT: zoloft restarted, counseling encouraged. Stable (6) Sterilization: COMMENT: title 19 signed 04/27 (7) COVID-19 affecting , antepartum: COMMENT: baby ASA started; already getting growth US. growth 93% (8) : QUALIFIERS: Weeks of gestation: 39 weeks Qualified Code(s): Z3A.39 - 39 weeks gestation of COMMENT: genetic- low risk; declined ntd and carrier screening. 02/06/21 nl anatomy with limited views, f/u 2 weeks; NEG GBS (9) Macrosomia: COMMENT: EFW 93%ile Maternal Data Information MADISON Calculator Estimated Delivery Date Method Current WG Current Estimate 07/02/21 Manual 39w 6d Vaginal Delivery Maternal Presentation Maternal Presentation: Active Labor Maternal Presentation: 25-year-old G2, P1 at 39 weeks gestation admitted in active labor. Patient made rapid cervical change to complete dilation without augmentation. Operative Information Date of Procedure: 07/01/21 Pre-Operative Diagnosis: Term , active labor Post-Operative Diagnosis: Same, moderate shoulder dystocia Surgery / Procedure Performed: Spontaneous Vaginal Delivery Type of Anesthesia: None Drain: Yee to straight drain Estimated Blood Loss: 200 Findings Description of Procedure: Patient began pushing and delivered the head in the MARGARITA presentation. The head was delivered atraumatically and no nuchal cord was noted. At this time, the head was noted to retract against the perineum and the anterior shoulder did not deliver easily. Shoulder dystocia was identified and announced to the room. Michael and suprapubic pressure were performed. The pelvis was assessed and it was not felt that her episiotomy would be beneficial. Anterior Bismark maneuver was attempted without success. Wood screw maneuver was performed and the shoulder delivered without difficulty. Total time from delivery of the head to delivery of the anterior shoulder was 53 seconds. The posterior shoulder delivered without complication followed by the rest of the infant and the infant was placed on the maternal abdomen. The cord was immediately clamped and cut and the infant was taken to the warmer for evaluation. Gentle traction was applied to the cord and the placenta delivered spontaneously immediately following it was noted to be intact with three-vessel cord. The perineum and vagina were inspected and noted to have no laceration. EBL was 200 cc. Patient and tolerated delivery well. Presentation: Vertex and HAILE Amniotic Membrane Rupture Type: Artificial Amniotic Fluid Description: Clear Placental Delivery Description: Spontaneous Placenta Disposition: [facility] Cord Vessel Description: 3 Vessels Cord Entanglement: None A Gender: Male (1 minute): 8 (5 minute): 9 Delayed Cord Clamping: No Post Vaginal Delivery Medications Given After Delivery: IV Pitocin Episiotomy Description: None Laceration: None Complication Complications: - (Shoulder dystocia) Procedures Urinary/Genital 52xxx-59xxx: [id number] Vaginal Delivery [facility]
--- NOTE | 2021-07-01 22:32 | PCM.DC ---
Discharge Instructions Diet Discharge Diet: No restrictions Activity Discharge Activity: Return to Normal Activity, May Not Drive (while taking narcotic pain medications.) and May Shower May resume sexual activity in: 4-6 weeks Dressing / Incision Call your doctor if your incision/area has: Continuous Slow Oozing, Sudden Increased Bleeding, Increased Pain/ Swelling, Increased Redness and Foul Smelling Discharge Follow Up Care When: Call to make an appointment with your doctor in 6 weeks. If you had elevated Blood Pressure or 4th degree laceration you will need to be seen in 2 weeks. Test Results: Test results from this visit will be discussed in further detail at your follow-up appointment, if applicable. Discharge Plan Admission Admit Date/Time: 07/01/21 19:30 Primary Reason for Your Visit: Active labor Attending Provider: Amelia Castillo Primary Care Provider: Evelina Tucker NP Instructions Patient Instructions: After a Vaginal Discharge Orders/Prescriptions Prescriptions: New ibuprofen 800 mg tablet 800 mg PO Q8H PRN (Reason: pain) Qty: 60 RF: 1 Continued [id number] 1 mg Tablet 1 tab PO DAILY RF: 0 sertraline [Zoloft] 50 mg tablet 50 mg PO DAILY RF: 0 Referrals / Follow Up: Evelina Tucker NP, ASSISTANT PROFESSOR NURSE EDUCATION-C [Primary Care Provider] -
[2021-07-02] VITALS (7 sets, daily range): BP systolic 110–118; BP diastolic 58–77; PULSE 83–110; RESP 16–18; TEMP 35.9–36.6; O2SAT 97–100
[2021-07-02] MEDS: 0.9% Saline Lock 10 ML Syringe IV (00:28)
--- NOTE | 2021-07-02 00:31 | NURSING ---
pt states she signed a tubal consent in office with dr zhu. this RN to pass this along in report.
[2021-07-02] MEDS: Ibuprofen 600 MG Tablet PO ×3 (00:36→16:45)
[2021-07-02] MEDS: Acetaminophen 500 MG Tablet 1000 MG PO (04:37)
--- NOTE | 2021-07-02 08:44 | PCM.PN.OB ---
Subjective Subjective Patient doing well without complaints. Tolerating PO. Ambulating and voiding without difficulty. Breast feeding well. Denies chest pain, shortness of breath, calf pain/swelling, fevers, chills, lightheadedness. Objective Data Objective Data Vital Signs: Vital Signs Temp Pulse Resp BP Pulse Ox 97.4 F L 92 16 112/65 98 07/02/21 08:31 07/02/21 08:31 07/02/21 08:31 07/02/21 08:31 07/02/21 08:31 Oxygen Delivery Method Room Air Weight: 217 lb Body Mass Index (BMI) 37.2 Intake & Output: Intake and Output for Last 24 Hours 06/30/21 07/01/21 07/02/21 23:59 23:59 23:59 Intake Total 1217 / 1217 306.17 / 306.17 Output Total 850 / 850 Balance 1217 / 1217 -543.83 / -543.83 Lab / Micro Data Result Diagrams: 07/01/21 19:45 Labs: Laboratory Results - last 24 hr 07/01/21 17:10: Vag Amniotic Fld Detect Negative 07/01/21 19:45: WBC 11.1 H, RBC 4.45, Hgb 12.8, Hct 39.4, MCV 88.5, MCH 28.8, MCHC 32.5, RDW Std Deviation 46.5 H, RDW Coeff of Alicia 14.6, Plt Count 265, MPV 10.4, Immature Gran % (Auto) 0.900, Neut % (Auto) 80.0 H, Lymph % (Auto) 12.4 L, [place] % (Auto) 5.6, Eos % (Auto) 0.7, Baso % (Auto) 0.4, Absolute Neuts (auto) 8.9 H, Absolute Lymphs (auto) 1.38, Nucleated RBC % 0 07/01/21 19:45: Blood Type A POSITIVE, Antibody Screen NEGATIVE Micro: Microbiology 07/01/21 19:50 Nasal Secretion SARS-CoV-2 Antigen (Rapid) - Final ROS Constitutional Constitutional: Denies fever(s) Cardiovascular Cardiovascular: Denies chest pain, dyspnea or lightheadedness Gastrointestinal Gastrointestinal: Reports abdominal pain; Denies constipation or diarrhea Neurologic Neurologic: Denies dizziness or headache(s) Physical Exam Const alert, oriented x3, no apparent distress, average body habitus, healthy appearing and well nourished HEENT normocephalic Head and Scalp: atraumatic Eyes PERRL and EOMs intact bilaterally Neck full ROM Lymph Lymphatic: no lymphadenopathy noted Resp normal respiratory effort, no retractions and no use of accessory muscles Cardio regular rate GI soft to palpation, non-tender and non-distended Palpation: other Other Details: fundus firm Extremity normal to inspection and no clubbing, cyanosis or edema Skin no rashes or lesions noted Neuro no focal motor deficits and no sensory deficits noted Psych mental status grossly normal, affect normal and speech normal Assessment & Plan (1) Vaginal delivery: COMMENT: GP RORO 07/01 - shoulder dystocia Boy-Keith PLAN: s/p PPD #1 1. routine post delivery care 2. breast feeding- support given 3. rh positive 4. rubella immune
[2021-07-03 01:58] VITALS: BP 115/79; PULSE 78; RESP 18; TEMP 36.1
[2021-07-03] MEDS: Acetaminophen 500 MG Tablet 1000 MG PO (02:03)
--- NOTE | 2021-07-03 07:56 | PCM.PN.OB ---
Subjective Subjective Patient doing well without complaints. Tolerating PO. Ambulating and voiding without difficulty. infant feeding well. Denies chest pain, shortness of breath, calf pain/swelling, fevers, chills, lightheadedness. Objective Data Objective Data Vital Signs: Vital Signs Temp Pulse Resp BP Pulse Ox 97 F L 78 18 115/79 97 07/03/21 01:58 07/03/21 01:58 07/03/21 01:58 07/03/21 01:58 07/02/21 16:47 Oxygen Delivery Method Room Air Weight: 217 lb Body Mass Index (BMI) 37.2 Intake & Output: Intake and Output for Last 24 Hours 07/01/21 07/02/21 07/03/21 23:59 23:59 23:59 Intake Total 1217 / 1217 306.17 / 306.17 Output Total 1550 / 1550 Balance 1217 / 1217 -1243.83 / -1243.83 Lab / Micro Data Result Diagrams: 07/01/21 19:45 Micro: Microbiology 07/01/21 19:50 Nasal Secretion SARS-CoV-2 Antigen (Rapid) - Final ROS Constitutional Constitutional: Reports systems reviewed and no addt'l complaints, except as documented Cardiovascular Cardiovascular: Reports systems reviewed and no addt'l complaints, except as documented Respiratory/Chest Respiratory/Chest: Reports systems reviewed and no addt'l complaints, except as documented Gastrointestinal Gastrointestinal: Reports systems reviewed and no addt'l complaints, except as documented Physical Exam Const alert, oriented x3 and no apparent distress HEENT Head and Scalp: atraumatic Resp normal respiratory effort GI soft to palpation and non-tender Bimanual Exam - Vag & Uterus: uterus non-tender Uterus Palpation: uterus fundus firm (below Umbilicus) Assessment & Plan (1) Shoulder dystocia during labor and delivery, delivered: COMMENT: McRobert's, Suprapubic, Pako's, and Woodscrew maneuver. (2) Vaginal delivery: COMMENT: GP IAL 07/01 - shoulder dystocia Boy-Keith (3) Supervision of high risk , antepartum: COMMENT: PRR Boy! Keith MADISON: 06/22/21 PC: Antonella BF: Suresh PLAN: s/p PPD # 2 1. routine post delivery care 2. breast feeding- support given 3. rh positive 4. rubella immune
[2021-07-03 09:00] VITALS: BP 125/87; PULSE 80; RESP 16; TEMP 36.2
== END 2021-07-03 09:40 | disposition home or self-care (01) | DRG 807 ==
LOC: WPOUT 19:33 → WP 19:33
PROVIDERS: Admitting Provider Obstetrics & Gynecology; PCP Nurse Practitioner Family; Visit Provider Obstetrics & Gynecology
DX: O66.0 Obstructed labor due to shoulder dystocia (principal); Z37.0 Single live birth; O36.63X0 Maternal care for excessive fetal growth, third trimester, not applicable or unspecified; O99.814 Abnormal glucose complicating childbirth; E66.9 Obesity, unspecified; O99.214 Obesity complicating childbirth; O99.02 Anemia complicating childbirth; D50.9 Iron deficiency anemia, unspecified; Z3A.39 39 weeks gestation of pregnancy; Z86.16 Personal history of COVID-19; Z87.891 Personal history of nicotine dependence; Z87.59 Personal history of other complications of pregnancy, childbirth and the puerperium; Z83.3 Family history of diabetes mellitus
CPT/HCPCS: 59025; 59050; 76815; 84112; 85025; 86850; 86900; 86901; 87426; 99218; J7120; A4216; G0378

== ENCOUNTER 2021-10-10 08:31 | Day surgery (SDC) | payer MEDICAID, SELFPAY ==
[2021-10-09 11:32] LABS: Absolute Lymphocyte Count 3.35 X10^3/uL (0.83-4.51); Absolute Neutrophil Count 5.4 X10^3/uL (2.0-7.7); Basophil# 0.07 X10^3/uL; Basophil% 0.7 % (0-1); Eosinophil# 0.63 X10^3/uL; Eosinophils% 6.2 % (0-5); Hematocrit 42.6 % (37-47); Hemoglobin 13.9 g/dL (12.0-15.0); Lymphocyte # 3.35 X10^3/ul (0.83-4.51); Mean Corp Hgb Conc 32.6 g/dL (32-36); Mean Corpuscular Hgb 28.4 pg (27.0-32.0); Mean Corpuscular Volume 87.1 fL (81-99); Mean Platelet Vol. 10.1 fl (6.2-12.0); Monocyte# 0.63 X10^3/uL; Monocyte% 6.2 % (0-10); NRBC Flagged by Analyzer 0 % (0-5); Neutrophil # 5.42 X10^3/uL (2.7-7.7); Neutrophil % 53.5 % (47-70); Platelet Count 368 K/mm3 (150-450); RBC Distribution Width CV 14.1 % (11.6-14.6); RBC Distribution Width SD 45.2 fl (35.1-43.9); Red Blood Count 4.89 M/mm3 (4.2-5.4); White Blood Count 10.1 K/mm3 (4.4-11.0)
[2021-10-10 08:51] VITALS: BP 129/69; PULSE 80; RESP 16; TEMP 36.3; O2SAT 100; BMI 35.2
[2021-10-10 09:03] LABS: Internal QC Validated? YES +Cl - CLEAR BKGD; Pregnancy, Urine Negative Negative
[2021-10-10] MEDS: Lactated Ringers 1,000 ML 15 ML IV (09:08)
--- NOTE | 2021-10-10 10:00 | FALS_PTH ---
PATIENT: NATHANAEL ELIZABETH LOC: [facility] U#:[id number] AGE/SX: 26/ ROOM: RE10/10/[address]: Dr. Maria D Young MD : 1995 BED: DIS: 10/10/2021 SPEC #: [id number] RECD: 10/10/21 14:02 STATUS: TAJ IRIS #: [id number] JAIR: 10/10/21 10:[address]: Maria D Young DEPT: SURGICAL PATHOLOGY RECD BY: Arpita Velásquez ENTERED: 10/11/21 09:33 SP TYPE: FALL TUBES OTHR DR: Evelina Tucker, GARTH-Sharon Tissues: Fallopian tube Procedures: Surgery Specimen Level II HEADER OPERATION: Laparoscopic salpingectomy PRE-OP DIAGNOSIS: History of depression, currently , sterilization, vaginal delivery TISSUE SUBMITTED: Bilateral fallopian tubes MICROSCOPIC DIAGNOSIS Right and left fallopian tubes, bilateral salpingectomies: Two complete segments of fallopian tubes with no pathologic change. AM:evon 10/12/2021 MICROSCOPIC DESCRIPTION Slides are reviewed. GROSS DESCRIPTION Received in fixative is one container labeled with the patient's name and designated bilateral fallopian tubes. The specimen consists of bilateral fallopian tubes including fimbrial ends measuring 6 cm in length and 0.7 cm in diameter and 6 cm in length and 0.7 cm in diameter. The fallopian tubes are not identified as right or left. Sections reveal unremarkable cut surfaces. Also present in the container is a detached piece of soft tissue measuring 1 x 0.5 x 0.1 cm. Billiard Table Assembler sections are submitted in two cassettes as follows: 1 ? one fallopian tube, 2 ? second fallopian tube and detached piece of tissue, entirely submitted. / SJ:evon 10/11/2021 TC:2 CPT: 34304 x2
--- NOTE | 2021-10-10 12:00 | PCM.HP.STD ---
HPI - General HPI Narrative NATHANAEL ELIZABETH, is a 26 F who presents for sterilization procedure. [facility] Medical History Alcohol use Anxiety Asthma Gastric reflux Infertility Obesity Physical exam, pre-employment Restless legs Smoker Allergy/AdvReac Type Severity Reaction Status Date / Time No Known Allergies Allergy Verified 10/10/21 08:50 Family History Mother Diabetes Surgical History No significant past surgical history Social History household members: family housing: house number of children: 1 current occupational status: employed current occupation: [employer] pets and animals: Yes Smoking Status: Current every day smoker tobacco type: cigarettes second hand exposure: Yes alcohol intake: never details: social substance use type: does not use caffeine: Yes what type of physical activity do you participate in: none seatbelt use: always do you feel safe at home: Yes 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 [employer] ROS Review of Systems ROS Unobtainable: due to mental status and other Constitutional Constitutional: Reports systems reviewed and no addt'l complaints, except as documented; Denies as per HPI, change in weight, fatigue, fever(s), malaise, weakness or other Eyes Eyes: Reports systems reviewed and no addt'l complaints, except as documented; Denies as per HPI, change in vision or other ENT HEENT: Reports systems reviewed and no addt'l complaints, except as documented Respiratory/Chest Respiratory/Chest: Reports systems reviewed and no addt'l complaints, except as documented Gastrointestinal Gastrointestinal: Reports systems reviewed and no addt'l complaints, except as documented and as per HPI Genitourinary Genitourinary: Reports as per HPI Musculoskeletal Musculoskeletal: Reports systems reviewed and no addt'l complaints, except as documented Neurologic Neurologic: Reports systems reviewed and no addt'l complaints, except as documented Psychiatric Psychiatric: Reports systems reviewed and no addt'l complaints, except as documented Endocrine Endocrinology: Reports systems reviewed and no addt'l complaints, except as documented Hematologic/Lymphatic Hematologic/Lymphatic: Reports systems reviewed and no addt'l complaints, except as documented Vital Signs Vital Signs Vital Signs: 10/10/21 08:51 Temperature 97.3 F L Temperature Source Temporal Pulse Rate 80 Respiratory Rate 16 Respiratory Pattern Normal Blood Pressure 129/69 H Blood Pressure Mean 89 Blood Pressure Source Monitor Blood Pressure Position Sitting Blood Pressure Location Right Arm Pulse Ox 100 Oxygen Delivery Method Room Air Weight Weight: 205 lb 0.478 oz Body Mass Index (BMI) 35.2 Physical Exam Const alert, oriented x3 and no apparent distress HEENT normocephalic Head and Scalp: atraumatic Eyes EOMs intact bilaterally and conjunctivae normal Neck full ROM, no lymphadenopathy, supple and thyroid normal General: trachea midline Lymph Lymphatic: no lymphadenopathy noted Resp normal respiratory effort, no retractions, no use of accessory muscles and clear to auscultation bilaterally Cardio regular rhythm GI normal to inspection, nondistended, normoactive bowel sounds, soft to palpation, non-distended and no masses Inspection: Negative for abdominal distention Back/Spine no CVA tenderness Extremity normal to inspection Skin no rashes or lesions noted Neuro moves all extremities and deep tendon reflexes 2+ bilaterally Psych mental status grossly normal Results Lab / Micro Data Result Diagrams: 10/09/21 11:11 Labs: Laboratory Results - last 24 hr 10/09/21 11:11: Blood Type A POSITIVE, Antibody Screen NEGATIVE 10/10/21 08:45: Urine Test Negative Micro: Microbiology 10/09/21 11:30 Interface Orders SARS-CoV-2 Antigen (Rapid) - Final Assessment & Plan Assessment/Plan (1) H/O depression, currently : (2) Sterilization: (3) Vaginal delivery: PLAN: After discussing the patient's diagnosis and treatment plan options, patient wishes to proceed with surgical management. I have discussed with the patient the risks, benefits, and alternatives of the procedure which include but are not limited to risks of anesthesia, bleeding, infection, possible damage to bowel, bladder, or surrounding vasculature which could lead to additional surgery to evaluate any complications. Patient agrees to procedure and wishes to proceed. ACOG/uptodate references given for additional information regarding procedure.
--- NOTE | 2021-10-10 12:35 | PCM.OPRPT ---
Report of Operation Pre-Operative Diagnosis: see problem list Post-Operative Diagnosis: same Surgery/Procedure Performed:: laparoscopic bilateral salpingectomy Description of Surgical Findings:: nl uterus tubes ovaries Type of Anesthesia: General and Local Specimen's removed: tubes Drains: none Estimated Blood Loss (mL): 50 Fluids Replaced: crystalloid Description of Procedure: Patient was taken in the operating room and was placed under general anesthesia was prepped and draped in normal sterile fashion in the dorsal lithotomy position. Bladder was drained of clear urine and SCDs were on preoperatively. Uterus was sounded and a uterine manipulator was placed after dilating. Attention was then paid to the abdominal portion of the procedure and the umbilicus was elevated with towel clamps and injected with Marcaine and after a 5 mm incision was made and the Veress needle was entered into the abdomen confirmed to be intra-abdominal with a low opening pressure of less than 5 mmHg. Abdomen was insufflated with CO2 gas and a 5 mm optical trocar was placed under direct visualization. A 5 mm port suprapubically was placed under direct visualization. Uterus was well visualized and bilateral fallopian tubes identified and bilateral tubes were elevated and transecting across the mesosalpinx and the attachment to the uterine corpus bilaterally the tubes were removed without complication. Excellent hemostasis was noted. Fallopian tubes were removed through the lower port site without complication. Liver and upper abdomen were visualized notably within normal limits and no other gross abnormalities were seen in the abdomen. All instruments removed from the abdomen after gas was desufflated. Port sites were closed with 3-0 Monocryl Steri's and op sites were applied. All instruments removed from the vagina and patient was awoken and taken recovery in stable condition. Grafts/Implants Used: none Complications none Admit VTE Documentation VTE Present on Admission: No VTE Mechan Device Prophylaxis: SCD's Multi Select Codes Urinary/Genital Urinary/Genital CPT Codes: 87901 Laproscopic BS/O
--- NOTE | 2021-10-10 12:35 | PCM.DC ---
Discharge Instructions Diet Discharge Diet: No restrictions Activity Discharge Activity: Return to Normal Activity, May Not Drive (for 2 weeks or while taking narcotic pain meds.), May Shower and May Take a Tub Bath (in 7 days) May resume sexual activity in: 1 week Weight Bearing Status: Full weight bearing Dressing / Incision Call your doctor if your incision/area has: Continuous Slow Oozing, Sudden Increased Bleeding, Increased Pain/ Swelling, Increased Redness and Foul Smelling Discharge Call your doctor if you observe: Fever of 101 or Higher, Using more than 1 pad per hour, Shortness of breath, Chest pain and Uncontrolled pain Suture Line Care: Avoid Pulling/Pushing and Avoid Pinching/Bending Remove Dressing in: 1 week (if present) Cleanse incision/area with: Soap & Water and Keep Dressing Clean & Dry Follow Up Care When: Call to make an appointment with your doctor for a fu/incision check in 1-2 weeks. Test Results: Test results from this visit will be discussed in further detail at your follow-up appointment, if applicable. Discharge Plan Admission Attending Provider: Maria D Young Primary Care Provider: Evelina Tucker NP Discharge Orders/Prescriptions Prescriptions: New oxycodone-acetaminophen [Percocet] 5-325 mg tablet 1 tab PO Q6H PRN (Reason: pain) 7 Days Qty: 20 RF: 0 naproxen [naproxen] 500 MG tablet 500 mg PO BID PRN PRN (Reason: Pain) Qty: 30 RF: 1 Referrals / Follow Up: Evelina Tucker NP, EXHIBIT CARPENTER-C [Primary Care Provider] - Disposition Disposition (needs filled in before D/C Order can be placed): Home, Self Care
[2021-10-10] MEDS: Bupivacaine 0.25% 30 ML Vial (13:00)
[2021-10-10 13:15] VITALS: BP 125/89; BP 129/69; PULSE 68; RESP 14; TEMP 36; O2SAT 100
[2021-10-10 13:30] VITALS: BP 114/70; BP 129/69; PULSE 69; RESP 16; O2SAT 100
[2021-10-10 13:41] VITALS: BP 114/70; BP 129/69; PULSE 72; RESP 16; TEMP 36.1; O2SAT 95
[2021-10-10] MEDS: HYDROcodone Bitartrate/Apap 5/325 Tablet PO (14:03)
[2021-10-10 14:50] VITALS: BP 110/57; BP 129/69; PULSE 76; RESP 16; TEMP 36.1; O2SAT 95
[2021-10-10] MEDS: Ondansetron ODT 4 MG Tablet PO (15:08)
[2021-10-10 15:12] VITALS: BP 129/69
== END 2021-10-10 23:59 | disposition home or self-care (01) ==
LOC: SDC 08:32 → AC 08:33
PROVIDERS: PCP Nurse Practitioner Family; Referring Provider Obstetrics & Gynecology; Visit Provider Obstetrics & Gynecology
PROC: (CPT 58661; principal; 2021-10-10 09:45)
DX: Z30.2 Encounter for sterilization (principal); J45.909 Unspecified asthma, uncomplicated
CPT/HCPCS: 58661; 00840; 36415; 81025; 85025; 86850; 86900; 86901; 87426; 88302; C9803; J7120; J2405

== ENCOUNTER 2021-11-06 11:23 | Outpatient (CLI) | payer MEDICAID, SELFPAY | END 2021-11-06 23:59 | disposition home or self-care (01) | LOC: LAB 11:24 | PROVIDERS: PCP Nurse Practitioner Family; Referring Provider Obstetrics & Gynecology; Visit Provider Obstetrics & Gynecology | DX: N91.2 Amenorrhea, unspecified (principal) | CPT/HCPCS: 36415; 84702 ==

== ENCOUNTER 2021-11-06 16:57 | Outpatient (CLI) | payer MEDICAID, SELFPAY ==
--- NOTE | 2021-11-06 17:10 | US_ITS ---
STUDY: FIRST TRIMESTER OBSTETRICAL ULTRASOUND REASON FOR EXAM: Female, 26 years old size and dates LMP: 09/07/2021 TECHNIQUE: Transvaginal TECHNICAL QUALITY: Adequate. PRIOR ULTRASOUND: None. FINDINGS: There is visualization of a single gestational sac in a normal intrauterine position. The mean sac diameter (MSD) measures 2.41 cm, indicating an estimated gestational age (EGA) of 7 weeks, 3 days. The gestational sac shape is within normal limits. There is a visualized yolk sac. The yolk sac measures 0.33 cm. The placenta is non-visualized. There is visualization of a live embryo. The crown-rump length (CRL) measures 1.07 cm, indicating an estimated gestational age (EGA) of 7 weeks, 1 days. There is demonstrated cardiac activity with a heart rate of 138 bpm. The estimated gestation age (EGA) by LMP is 8 weeks, 4 days. The estimated date of delivery ([place]) by LMP is 06/14/2022. The estimated gestation age (EGA) by US is 7 weeks, 2 days. The estimated date of delivery ([place]) by US is 06/23/2022. The uterus measures 11.1 x 2.5 x 6.0 cm. There is no demonstrated uterine fibroid. The cervix is closed. There is a simple right ovarian cyst measuring 4.3 cm. There is no fluid in the cul de sac. US/Transvaginal w/Preg US IMPRESSION: A single live intrauterine at 7 weeks, 2 days by current ultrasound MAD[place] of 06/23/2022. Heart rate of 130 bpm. No suspicious sonographic findings Electronically Signed: Cali Shrestha MD at 18:33 EST ,
== END 2021-11-06 23:59 | disposition home or self-care (01) ==
LOC: US 17:00
PROVIDERS: PCP Nurse Practitioner Family; Referring Provider Obstetrics & Gynecology; Visit Provider Obstetrics & Gynecology
DX: Z34.91 Encounter for supervision of normal pregnancy, unspecified, first trimester (principal); Z78.9 Other specified health status
CPT/HCPCS: 36415; 76817; 84702

== ENCOUNTER 2021-11-22 07:53 | Outpatient (CLI) | payer MEDICAID, SELFPAY ==
[2021-11-22 11:56] LABS: Amphetamine Urine VISTA NEGATIVE (<1000 ng/mL); Barbiturate Urine VISTA NEGATIVE (< 200 ng/mL); Benzodiazepine Urine VISTA NEGATIVE (< 200 ng/mL); Cocaine Urine VISTA NEGATIVE (< 300 ng/mL); Ecstacy Urine VISTA NEGATIVE (< 500 ng/mL); Methadone Urine VISTA NEGATIVE (< 300 ng/mL); PCP Urine VISTA NEGATIVE (< 25 ng/mL); THC Urine VISTA NEGATIVE (< 50 ng/mL); Vista UDS pH Range 6
[2021-11-23 21:07] LABS: Chlamydia By Nucleic Acid AMP Negative (Negative)
[2021-11-23 21:17] LABS: Gonococcus By Nucleic Acid AMP Negative (Negative)
== END 2021-11-22 23:59 | disposition home or self-care (01) ==
LOC: LABSPEC 11-23 07:54
PROVIDERS: PCP Nurse Practitioner Family; Referring Provider Obstetrics & Gynecology; Visit Provider Obstetrics & Gynecology
DX: O09.90 Supervision of high risk pregnancy, unspecified, unspecified trimester (principal)
CPT/HCPCS: 80307; 87086; 87088; 87491; 87591

== ENCOUNTER 2021-11-30 10:47 | Outpatient (CLI) | payer MEDICAID, SELFPAY ==
[2021-11-30 11:36] LABS: Absolute Lymphocyte Count 2.25 X10^3/uL (0.83-4.51); Absolute Neutrophil Count 7.5 X10^3/uL (2.0-7.7); Basophil# 0.05 X10^3/uL; Basophil% 0.5 % (0-1); Eosinophil# 0.25 X10^3/uL; Eosinophils% 2.4 % (0-5); Hemoglobin 12.4 g/dL (12.0-15.0); Lymphocyte # 2.25 X10^3/ul (0.83-4.51); Lymphocyte % 21.3 % (19-41); Mean Corp Hgb Conc 32.6 g/dL (32-36); Mean Corpuscular Hgb 28.8 pg (27.0-32.0); Mean Corpuscular Volume 88.2 fL (81-99); Mean Platelet Vol. 10.4 fl (6.2-12.0); Monocyte# 0.47 X10^3/uL; Monocyte% 4.5 % (0-10); NRBC Flagged by Analyzer 0 % (0-5); Neutrophil # 7.48 X10^3/uL (2.7-7.7); Neutrophil % 70.7 % (47-70); Platelet Count 315 K/mm3 (150-450); RBC Distribution Width CV 12.6 % (11.6-14.6); RBC Distribution Width SD 40.6 fl (35.1-43.9); Red Blood Count 4.31 M/mm3 (4.2-5.4); White Blood Count 10.6 K/mm3 (4.4-11.0)
[2021-11-30 12:00] LABS: NATERA MAILED SPECIMEN
[2021-11-30 12:04] LABS: Glucose Challenge Gest 1H 50g 98 mg/dL (70-140)
[2021-11-30 12:37] LABS: HIV - WCH Non-Reactive (Nonreactive); Hepatitis B Surface Antigen Non-Reactive (Nonreactive); Hepatitis C Antibody Non-Reactive (Nonreactive); Rubella IgG Reactive (Nonreactive); Syphilis Antibodies Non-reactive
== END 2021-11-30 23:59 | disposition home or self-care (01) ==
LOC: LAB 10:50
PROVIDERS: PCP Nurse Practitioner Family; Visit Provider Obstetrics & Gynecology
DX: Z34.81 Encounter for supervision of other normal pregnancy, first trimester (principal)
CPT/HCPCS: 36415; 82950; 85025; 86703; 86762; 86780; 86803; 86850; 86900; 86901; 87340

== ENCOUNTER 2021-12-13 23:24 | Emergency (ER) | payer MEDICAID, SELFPAY ==
[2021-12-13 23:25] VITALS: BP 123/82; PULSE 79; RESP 15; TEMP 36.3; O2SAT 98; BMI 36.3
--- NOTE | 2021-12-13 23:50 | EDS_ITS ---
HPI HPI - Female History of Present Illness Chief Complaint: Vag Bld, Preg Informant: patient Narrative Narrative: currently approximately 13 weeks presenting with vaginal bleeding. Patient states she developed vaginal bleed about 1 hour prior to arrival. She states that lightened up since. She denies any passage of clots or any significant bleeding. Denies any leakage of fluid or abnormal discharge. Notes she has been battling a yeast infection throughout her entire . Her WIND ENERGY TECHNICIAN is Dr. Pro brown. She has had an ultrasound which I did review which already confirmed intrauterine gestation. Patient has a positive blood type which is also reviewed in the computer. She last had intercourse on Saturday, 2 days ago. She did have a mild left lower quadrant pain earlier this morning but she attributed to picking up her 5-month-old. Currently denies any pain. No other complaints at this time. Is concerned she could be having a miscarriage or complication with the which is what brought her to the emergency room. [facility] Medical History Alcohol use Anxiety Asthma Gastric reflux Infertility Obesity Restless legs Shoulder dystocia during labor and delivery, delivered Vaginal delivery Home Medications NK 12/13/21 [History Last Taken Unknown] Allergy/AdvReac Type Severity Reaction Status Date / Time No Known Allergies Allergy Verified 12/13/21 23:25 Family History Mother Diabetes Surgical History No significant past surgical history Status post bilateral salpingectomy Social History adopted: No household members: spouse and children housing: house number of children: 2 current occupational status: employed current occupation: [employer] pets and animals: Yes pets and animals: dog(s) Smoking Status: Former smoker second hand exposure: Yes alcohol intake: never details: social substance use type: does not use caffeine: Yes (trying to reduce) Type: carbonated beverages what type of physical activity do you participate in: none seatbelt use: always do you feel safe at home: Yes additional social history: Suresh- [employer] for [employer] ROS ROS ED Constitutional Constitutional ED: Denies chills or fever(s) Eyes Eyes: Denies change in vision Cardiovascular Cardiovascular: Denies chest pain Respiratory/Chest Respiratory/Chest: Denies cough or dyspnea Gastrointestinal Gastrointestinal: Reports abdominal pain; Denies nausea or vomiting Genitourinary Genitourinary ED: Reports other Details: + 13 weeks ; Denies dysuria or hematuria Musculoskeletal Musculoskeletal: Denies arthralgias or myalgias Integumentary Denies rash Neurologic Neurologic: Denies headache(s) or weakness Psychiatric Psychiatric: Denies depression Hematologic/Lymphatic Hematologic/Lymphatic: Denies easy bleeding or easy bruising EXAM Physical Exam Const Vital Signs: 12/13/21 23:25 12/14/21 00:37 Temperature 97.3 F L Temperature Source Temporal Pulse Rate 79 Respiratory Rate 15 16 Blood Pressure 123/82 H Blood Pressure Mean 95 Pulse Ox 98 Oxygen Delivery Method Room Air Positive well nourished General Appearance ED: NAD; Negative for pallor HEENT Reports moist mucous membranes Negative for tenderness Eyes PERRL and EOMs intact bilaterally Neck supple Neck Narrative: Normal range of motion Chest Wall inspection of chest normal Resp normal respiratory effort GI normal to inspection, nondistended, normoactive bowel sounds, soft to palpation, non-tender and non-distended Narrative: Deferred Extremity normal to inspection and full ROM Neuro oriented x3 Sensorium / Orientation: alert Motor Exam: Negative for general weakness Psych mental status grossly normal Skin no rashes or lesions noted General Skin Exam: Negative for pallor MDM MDM MDM Narrative Medical decision making narrative: Patient is evaluated for vaginal bleeding at 13 weeks . Bleeding is mild and patient states it is already starting to lighten up. Bedside ultrasound performed by myself shows a single intrauterine gestation with cardiac activity of 150 bpm and spontaneous movement of the extremities. Patient appears to be in no distress in the ER. Given her bleeding is improving and she has normal cardiac activity on ultrasound patient declines pelvic exam at this time. She will follow up outpatient with her chief radiology. Counseled that the bleeding could be from intercourse she had 2 days ago or implantation of the placenta. Counseled that this early it still could be possible miscarriage and there is no intervention available at this time. I will check a urinalysis to rule out UTI as a contributing factor to her bleeding. Patient is agreeable to this plan of care. Urinalysis is most consistent with contamination. Urine culture will be sent. Patient would like to defer antibiotics at that time as she has been dealing with yeast infections in this . She is not having any active urinary symptoms. Lab Data Labs: Laboratory Results - last 24 hr 12/13/21 23:47 Urine Color Yellow Urine Clarity Clear Urine pH 7.0 Ur Specific [place] 1.015 Urine Protein 15 H Urine Glucose (UA) Normal Urine Ketones Negative Urine Occult Blood 50 H Urine Nitrite Negative Urine Bilirubin Negative Urine Urobilinogen Normal Ur Leukocyte Esterase 100 H Urine RBC 0-5 SEEN Urine WBC 5-10 SEEN Ur Squamous Epith Cells 0-5 SEEN Amorphous Sediment 1+ Urine Bacteria 3+ Urine Mucus 1+ Discharge Plan Triage Chief Complaint: Vag Bld, Preg ED Provider: Kari Huff Dx/Rx/DC Orders Clinical Impression: Vaginal bleeding in Instructions: Bleeding During Early Prescriptions: No Action NK RF: 0 Primary Care Provider: Evelina Tucker NP Referrals: Maria D Young MD [STAFF PHYSICIAN] - As Needed Evelina Tucker NP, EQUIPMENT APPLICATION SPECIALIST-C [Primary Care Provider] - Disposition Disposition: Home, Self Care Discharge Date/Time: 12/14/21 00:37
[2021-12-14 00:04] LABS: Color, Urine Yellow (Yellow); Glucose, Dipstick Normal (Normal); Ketone-Dipstick Negative (Negative); Leukocyte Esterase-Dipstick 100 /ul (Negative); Nitrite-Dipstick Negative (Negative); Occult Blood-Urine 50 /ul (Negative); Protein-Dipstick 15 mg/dl (Negative); Specific Gravity, Urine 1.015 (1.002-1.030); Urine Bilirubin Dipstick Negative (Negative); Urine Clarity Clear (Clear); Urine Urobilinogen Normal (Normal)
[2021-12-14 00:19] LABS: Amorphous Sediment 1+; Bacteria 3+ /hpf (None Seen); Red Blood Cells-Urine 0-5 SEEN /hpf (0-5); Squamous Epithelial Cells - UA 0-5 SEEN /hpf (5-10); White Blood Cells 5-10 SEEN /hpf (0-5)
[2021-12-14 00:20] LABS: Mucous, Urine 1+ /hpf (<or=2+)
[2021-12-14 00:37] VITALS: RESP 16
== END 2021-12-14 00:37 | disposition home or self-care (01) ==
LOC: ED 12-14 00:03
PROVIDERS: Emergency Provider Emergency Medicine; PCP Nurse Practitioner Family; Visit Provider Emergency Medicine
DX: O20.9 Hemorrhage in early pregnancy, unspecified (principal); Z3A.13 13 weeks gestation of pregnancy; Z87.59 Personal history of other complications of pregnancy, childbirth and the puerperium; Z87.891 Personal history of nicotine dependence
CPT/HCPCS: 81001; 87086; 87088; 99282

== ENCOUNTER → 2022-04-05 | Outpatient (CLI) | payer MEDICAID, SELFPAY ==
[2022-04-05 11:01] LABS: Absolute Lymphocyte Count 2.02 X10^3/uL (0.83-4.51); Absolute Neutrophil Count 7.7 X10^3/uL (2.0-7.7); Basophil# 0.04 X10^3/uL; Basophil% 0.4 % (0-1); Eosinophil# 0.23 X10^3/uL; Eosinophils% 2.2 % (0-5); Hematocrit 32.8 % (37-47); Hemoglobin 10.8 g/dL (12.0-15.0); Lymphocyte # 2.02 X10^3/ul (0.83-4.51); Lymphocyte % 18.9 % (19-41); Mean Corp Hgb Conc 32.9 g/dL (32-36); Mean Corpuscular Hgb 29.2 pg (27.0-32.0); Mean Corpuscular Volume 88.6 fL (81-99); Mean Platelet Vol. 10.1 fl (6.2-12.0); Monocyte# 0.52 X10^3/uL; Monocyte% 4.9 % (0-10); NRBC Flagged by Analyzer 0 % (0-5); Neutrophil # 7.68 X10^3/uL (2.7-7.7); Neutrophil % 71.9 % (47-70); Platelet Count 217 K/mm3 (150-450); RBC Distribution Width CV 13.6 % (11.6-14.6); RBC Distribution Width SD 44.2 fl (35.1-43.9); White Blood Count 10.7 K/mm3 (4.4-11.0)
[2022-04-05 11:31] LABS: Glucose Challenge Gest 1H 50g 101 mg/dL (70-140)
== END | disposition home or self-care (01) ==
LOC: PAVLAB 10:34
PROVIDERS: PCP Nurse Practitioner Family; Referring Provider Obstetrics & Gynecology; Visit Provider Obstetrics & Gynecology
DX: Z34.90 Encounter for supervision of normal pregnancy, unspecified, unspecified trimester (principal); Z13.1 Encounter for screening for diabetes mellitus
CPT/HCPCS: 36415; 82950; 85025

== ENCOUNTER → 2022-04-27 | Outpatient (CLI) | payer MEDICAID, SELFPAY ==
--- NOTE | 2022-04-27 12:39 | US_ITS ---
EXAM: US , LIMITED CLINICAL INDICATION: GROWTH AT 32 WEEKS TECHNIQUE: Real-time limited ultrasound of the maternal uterus with image documentation. This report was created using Med fusion report generation technology. COMPARISON: None. FINDINGS: FETUS: There is a single intrauterine gestation. GESTATIONAL AGE: Gestational age is 30 weeks 6 days. EFW: Estimated weight is 2129 g. BPD: Biparietal diameter 8.2 cm age is 33 weeks 1 day, 77th percentile. HC: Head circumference 29.6 cm age 32 weeks 5 days, 35th percentile. AC: Abdominal circumference 29.6 cm age 33 weeks 4 days, 90th percentile. FL: Femur length 6.2 cm image 32 weeks 1 day, 43rd percentile. POSITION: The fetus is in cephalic position. HEART RATE: heart rate 147 bpm. PLACENTA: Placenta is fundal. AMNIOTIC FLUID: BLANCO measures 20.6 cm. CERVIX: Cervix measures 3.8 cm. OTHER FINDINGS: Estimated due date is 06/23/2022. US/OB Limited With Biometrics IMPRESSION: Intrauterine gestation with an average ultrasound age of 32 weeks 4 days and ultrasound estimated due date of 06/18/2022. heart rate is 147 bpm. BLANCO is 20.6 cm. Electronically Signed: Kulwant Ridley MD at 17:31 EDT ,
== END | disposition home or self-care (01) ==
LOC: US 12:37
PROVIDERS: PCP Nurse Practitioner Family; Referring Provider Nurse Practitioner Women's Health; Visit Provider Nurse Practitioner Women's Health
DX: O09.293 Supervision of pregnancy with other poor reproductive or obstetric history, third trimester (principal); Z3A.32 32 weeks gestation of pregnancy
CPT/HCPCS: 76816

== ENCOUNTER 2022-05-26 23:49 | Outpatient (CLI) | payer MEDICAID, SELFPAY ==
[2022-05-27 00:50] VITALS: BMI 41.3
[2022-05-27 00:55] VITALS: BP 120/68; PULSE 76
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
== END 2022-05-27 01:19 | disposition home or self-care (01) ==
LOC: WPOUT 23:58 → WP 23:59
PROVIDERS: PCP Nurse Practitioner Family; Visit Provider Obstetrics & Gynecology
DX: O36.8130 Decreased fetal movements, third trimester, not applicable or unspecified (principal); Z3A.36 36 weeks gestation of pregnancy; E66.9 Obesity, unspecified; O99.213 Obesity complicating pregnancy, third trimester; O99.013 Anemia complicating pregnancy, third trimester; Z87.891 Personal history of nicotine dependence; F41.9 Anxiety disorder, unspecified; O99.343 Other mental disorders complicating pregnancy, third trimester; Z79.899 Other long term (current) drug therapy
CPT/HCPCS: 59025; 59050; 99218; G0378

== ENCOUNTER → 2022-05-31 | Outpatient (CLI) | payer MEDICAID, SELFPAY ==
--- NOTE | 2022-05-31 10:12 | US_ITS ---
STUDY: SECOND AND THIRD TRIMESTER OBSTETRICAL ULTRASOUND - LIMITED REASON FOR EXAM: Female, 26 years old h/o covid in LMP: 09/16/2021. PRIOR ULTRASOUND: Comparison is made with prior study dated 04/27/2022. TECHNIQUE: Transabdominal TECHNICAL QUALITY: Adequate. FINDINGS: There is a single intrauterine fetus. The fetus is in a breech presentation. There is demonstrated cardiac activity with a heart rate of 147 bpm. There is a normal amniotic fluid volume. The largest amniotic fluid pocket measures 6.7 cm. The amniotic fluid index (BLANCO) is 15.7 cm. The placenta is posterior in location and is not low lying. There are Grade 2 placental changes. The cervix measures 4.2 cm in length. BIOMETRY: BPD: 8.95 cm: 36 weeks, 2 days HC: 33.06 cm: 37 weeks, 5 days AC: 33.39 cm: 37 weeks, 2 days FL: 7.02 cm: 36 weeks, 0 days Age by LMP: 36 weeks, 5 days. [place] by LMP: 06/23/2022. age by prior US: 37 weeks, 3 days. [place] by prior US: 06/18/2022. age by current US: 36 weeks, 6 days. [place] by current US: 06/22/2022. Estimated weight: 3063 grams, +/- 459 grams, 60 percentile. US/OB Limited With Biometrics IMPRESSION: Single live uterine gestation with a mean gestational age of 37 weeks and 3 days. The measurements obtained today fall within normal expected range. Electronically Signed: Rodrigo Hawk MD at 15:37 EDT ,
[2022-05-31 13:02] LABS: Absolute Lymphocyte Count 2.02 X10^3/uL (0.83-4.51); Absolute Neutrophil Count 8.6 X10^3/uL (2.0-7.7); Basophil# 0.05 X10^3/uL; Basophil% 0.4 % (0-1); Eosinophil# 0.14 X10^3/uL; Eosinophils% 1.2 % (0-5); Hemoglobin 10.8 g/dL (12.0-15.0); Lymphocyte # 2.02 X10^3/ul (0.83-4.51); Lymphocyte % 17.5 % (19-41); Mean Corp Hgb Conc 31.8 g/dL (32-36); Mean Corpuscular Hgb 27.1 pg (27.0-32.0); Mean Corpuscular Volume 85.4 fL (81-99); Mean Platelet Vol. 10.7 fl (6.2-12.0); Monocyte# 0.57 X10^3/uL; Monocyte% 4.9 % (0-10); NRBC Flagged by Analyzer 0 % (0-5); Neutrophil % 74.5 % (47-70); Platelet Count 214 K/mm3 (150-450); RBC Distribution Width CV 13.5 % (11.6-14.6); RBC Distribution Width SD 42.7 fl (35.1-43.9); Red Blood Count 3.98 M/mm3 (4.2-5.4); White Blood Count 11.6 K/mm3 (4.4-11.0)
[2022-05-31 13:21] LABS: ALB/GLOB Ratio 0.6 RATIO (0.9-2.4); AST(SGOT) 15 U/L (15-37); Alanine Aminotransfer ALT/SGPT 15 U/L (13-56); Albumin, Serum 2.3 g/dL (3.2-5.0); Alkaline Phosphatase 139 U/L (45-117); Anion Gap 7 (5-15); BUN 4 mg/dL (7-18); BUN/Creat Ratio 5.5 RATIO (10-20); Calcium,Total 9.2 mg/dL (8.5-10.1); Chloride 108 mmol/L (98-107); Creatinine, Serum 0.73 mg/dL (0.55-1.02); EST Glomerular Filtration Rate 103 mL/min (>60); Est Glom Filt Rate - Afr Amer 125 mL/min (>60); Globulin 3.8 g/dL (2.2-4.2); Glucose 100 mg/dL (74-106); Potassium 3.3 mmol/L (3.5-5.1); Protein, Total 6.1 g/dL (6.4-8.2); Sodium Level 142 mmol/L (136-145)
[2022-05-31 13:47] LABS: Protein, Urine (Random) 9.7 mg/dL (<11.9); Protein:Creat Ratio 207 mg/g CRE (0-200)
== END | disposition home or self-care (01) ==
PROVIDERS: Obstetrics & Gynecology; PCP Nurse Practitioner Family; Referring Provider Nurse Practitioner Women's Health; Visit Provider Nurse Practitioner Women's Health
DX: O98.519 Other viral diseases complicating pregnancy, unspecified trimester (principal); U07.1 COVID-19; R51.9 Headache, unspecified; Z3A.32 32 weeks gestation of pregnancy
CPT/HCPCS: 36415; 76816; 80053; 82570; 84156; 85025; 87081

== ENCOUNTER 2022-06-01 22:19 | Outpatient (CLI) | payer MEDICAID, SELFPAY ==
[2022-06-01] VITALS (7 sets, daily range): BP systolic 123–138; BP diastolic 74–89; PULSE 75–86; TEMP 36.2; O2SAT 96; BMI 41.8
[2022-06-01 23:04] LABS: Protein, Urine (Random) < 6.0 mg/dL (<11.9); Protein:Creat Ratio 252 mg/g CRE (0-200)
--- NOTE | 2022-06-05 03:39 | OB.TRI.PN_ITS ---
Progress Notes Date of Service: 06/01/22 Progress Note: Patient presents for triage evaluation secondary to elevated bp at home repeats all here WNL FHT: 140 Moderate variability reactive no decelerations category I tracing [place]: no regular Contractions Assessment and plan: normal bps breech presentation Reactive NST, reassuring maternal and status patient discharged to home to follow-up as scheduled. See problem list details for additional plan information. Laboratory Studies: Laboratory Tests 06/01/22 Range/Units 22:30 U Random Total Protein < 6.0 (<11.9) mg/dL Urine Creatinine 23.40 (NO RANGE EST.) mg/dL Protein/Creatinin Ratio 252 H (0-200) mg/g CRE Charges/Coding Procedures Urinary/Genital 52xxx-59xxx: 16501-61 non-stress test Interp
== END 2022-06-02 00:30 | disposition home or self-care (01) ==
LOC: WP 06-02 00:27 → WPOUT 06-04 08:02 → WP 06-04 08:02
PROVIDERS: PCP Nurse Practitioner Family; Visit Provider Obstetrics & Gynecology
DX: O99.891 Other specified diseases and conditions complicating pregnancy (principal); R03.0 Elevated blood-pressure reading, without diagnosis of hypertension
CPT/HCPCS: 59025; 59050; 82570; 84156; 99218; G0378

== ENCOUNTER 2022-06-08 16:35 | Inpatient (IN) | payer MEDICAID, SELFPAY ==
[2022-06-08] VITALS (24 sets, daily range): BP systolic 77–151; BP diastolic 42–93; PULSE 78–98; RESP 12–17; TEMP 36.4–36.9; O2SAT 95–99; BMI 42.1
[2022-06-08] MEDS: 0.9 % NaCl (Sterile) Posiflush 10 mL IV (15:30)
[2022-06-08 15:46] LABS: Hematocrit 33.4 % (37-47); Hemoglobin 10.6 g/dL (12.0-15.0); Mean Corp Hgb Conc 31.7 g/dL (32-36); Mean Corpuscular Hgb 27.1 pg (27.0-32.0); Mean Corpuscular Volume 85.4 fL (81-99); Mean Platelet Vol. 11.4 fl (6.2-12.0); Platelet Count 248 K/mm3 (150-450); RBC Distribution Width CV 13.9 % (11.6-14.6); RBC Distribution Width SD 42.7 fl (35.1-43.9); Red Blood Count 3.91 M/mm3 (4.2-5.4); White Blood Count 11.5 K/mm3 (4.4-11.0)
[2022-06-08 15:56] LABS: Protein:Creat Ratio 352 mg/g CRE (0-200)
[2022-06-08 16:31] LABS: AST(SGOT) 15 U/L (15-37); Alanine Aminotransfer ALT/SGPT 18 U/L (13-56); Creatinine, Serum 0.65 mg/dL (0.55-1.02); EST Glomerular Filtration Rate 117 mL/min (>60); Est Glom Filt Rate - Afr Amer 142 mL/min (>60); Estimated Creatinine Clearance 115.24 ml/min; Uric Acid 5.4 mg/dL (2.6-6.0)
[2022-06-08] MEDS: Lactated Ringers 1,000 ML 999 ML IV ×2 (17:29→20:47)
[2022-06-08] MEDS: Acetaminophen 500 MG Tablet 1000 MG PO (17:47)
[2022-06-08] MEDS: Labetalol 200 MG Tablet PO (17:48)
[2022-06-08 18:00] LABS: Absolute Lymphocyte Count 2.14 X10^3/uL (0.83-4.51); Absolute Neutrophil Count 8.8 X10^3/uL (2.0-7.7); Basophil# 0.04 X10^3/uL; Basophil% 0.3 % (0-1); Eosinophil# 0.15 X10^3/uL; Eosinophils% 1.3 % (0-5); Lymphocyte # 2.14 X10^3/ul (0.83-4.51); Lymphocyte % 18.3 % (19-41); Monocyte# 0.51 X10^3/uL; Monocyte% 4.4 % (0-10); NRBC Flagged by Analyzer 0 % (0-5); Neutrophil # 8.78 X10^3/uL (2.7-7.7); Neutrophil % 74.8 % (47-70)
[2022-06-08] MEDS: Lactated Ringers 1,000 ML 150 ML IV (18:28)
[2022-06-08 18:58] LABS: Potassium 3.4 mmol/L (3.5-5.1)
[2022-06-08] MEDS: Sodium Citrate/Citric Acid 30 ML UDC PO (19:20)
--- NOTE | 2022-06-08 19:27 | HP.PCM.OB_ITS ---
HPI - General General Date of Admission: 06/08/22 Date of Service: 06/08/22 HPI Narrative NATHANAEL ELIZABETH, is a 26 y/o who presents to L&D with elevated blood pressures and headache. She was found to have proteinuria and fetus in the breech presentation at 37 weeks 6 days. The decision was made to proceed with delivery for the diagnosis of preeclampsia. Maternal Data Information [place] Calculator Estimated Delivery Date Method Current WG Current Estimate 06/23/22 Ultrasound #1 37w 6d Other Estimates 06/14/22 LMP (Certain) 39w 1d PFSH PFSH Medical History (Updated 06/08/22 @ 19:[address] Lizz Kulkarni, DO) Alcohol use Anxiety Asthma Gastric reflux Infertility Obesity depression Pre-eclampsia Restless legs Shoulder dystocia during labor and delivery, delivered Vaginal delivery Home Medications hydroxyzine pamoate 50 mg capsule (Vistaril) 50 mg PO Q6H PRN anxiety #90 caps 05/10/22 [Rx Last Taken 05/12/22] potassium chloride 20 mEq tablet,extended release(part/cryst) 20 meq PO ONCE low potassium 06/08/22 [History Last Taken 06/05/22 1 tab] sertraline 100 mg tablet 100 mg PO DAILY anxiety 06/08/22 [History Last Taken 06/05/22 22:00 1 tab] Allergy/AdvReac Type Severity Reaction Status Date / Time No Known Allergies Allergy Verified 06/01/22 22:37 Family History Mother Diabetes Surgical History (Updated 06/08/22 @ 17:28 by Lynne Spring) History of gynecologic surgery No significant past surgical history Status post bilateral salpingectomy Social History adopted: No household members: spouse and children housing: house number of children: 2 current occupational status: employed current occupation: [employer] pets and animals: Yes pets and animals: dog(s) Smoking Status: Former smoker second hand exposure: Yes alcohol intake: never details: social substance use type: does not use caffeine: Yes (trying to reduce) Type: carbonated beverages what type of physical activity do you participate in: none seatbelt use: always do you feel safe at home: Yes additional 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 Date Name GA/Weeks Outcome Route Bth Weight Infant Gen Labor Lgth Anesthesia Del Locatn Provider FOB 04/27/19 Antonella 38 live - full term 7lbs 13oz Female 13.5 hours epidural [facility] EVELYN Suresh 07/01/21 Kolt 39 live - full term Male [facility] Dr. Castillo Delivery Date: 04/27/19 Last Updated by: Erinn Geiger no complications with delivery Delivery Date: 07/01/21 Last Updated by: Amy Reynolds moderate shoulder dystocia Visit Details Expected Delivery Route/Plan IOL at 39 Labor Preferences- CB/BF classes: no labor support person: Suresh labor intervention preferences: [] pain management options preferred: limited intervention cut cord/dad catch: cord : yes PP control planned: BS in place discussed possible routes of delivery and associated risks: [] special requests: [] Plans Covid status: discussed Flu vaccine: discussed Tdap vaccine: declines Rhogam: NA LARC form signed: yes Problem list reviewed and updated with the most current plan of care details and appropriate orders placed. Relevant counseling for the gestational age provided. Continue routine care and follow up unless otherwise noted in visit notes/problem list details OB Flowsheet Initial Weight: Not Recorded Date -?-?-?-?-?-?-?-?-?-?-?-?- EGA Weight BP Urine Prot -?-?-?-?-?-?-?-?-?-?-?-?- Glucose FHR FuHt Pres Dilation -?-?-?-?-?-?-?-?-?-?-?-?- Effaced St Visit Note 11/22/21 -?-?-?-?-?-?-?-?-?-?-?-?- 9w 4d 211 lb 8 oz 120/66 -?-?-?-?-?-?-?-?-?-?-?-?- 195 -?-?-?-?--?-?-?-?-?-?-?-?- JV- CRL consiste nt with last ultrasound. [place] 06/23/22 got and then had a tubal ligation. wants genetic counseling 12/20/21 -?-?-?-?-?-?-?-?-?-?-?-?- 13w 4d 209 lb 4 oz 124/80 Nega tive -?-?-?-?-?-?-?-?-?-?-?-?- Negative 154 -?-?-?-?-?-?-?-?-?-?-?-?- JV- no cramping or spotting. wants to go back on zoloft. 01/15/22 -?-?-?-?-?-?-?-?-?-?-?-?- 17w 2d 213 lb 102/80 Negative -?-?-?-?-?-?-?-?-?-?-?-?- Negative -?-?-?-?-?-?-?-?-?-?-?-?- 02/15/22 -?-?-?-?-?-?-?-?-?-?-?-?- 21w 5d 221 lb 8 oz 108/64 Nega tive -?-?-?-?-?-?-?-?-?-?-?-?- Negative 145 -?-?-?--?-?-?-?-?-?-?-?-?- JV- no lof, vagi nal bleeding, or dec fm. anatomy scan normal. 03/12/22 -?-?-?-?-?-?-?-?-?-?-?-?- 25w 2d 226 lb 102/80 Negative -?--?-?-?-?-?-?-?-?-?-?-?- Negative 145 25 -?-?-?-?-?-?-?-?-?-?-?-?- SM- no vb lof go od fm no regular ctx SM- no vb lof good fm no reg ular ctx. co numbness in hands, discussed wearing braces at night if needed 04/05/22 -?-?-?-?-?-?-?-?-?-?-?-?- 28w 5d 232 lb 4 oz 118/64 Nega tive -?-?-?-?-?-?-?-?-?-?-?-?- Negative 142 29 -?-?-?-?-?-?-?-?-?-?-?-?- -No Vb, LOF. G ood FM. 36 wk US ordered. 28 wk labs, larc. Declines tdap. 04/17/22 -?-?-?-?-?-?-?-?-?-?-?-?- 30w 3d 230 lb 6 oz 118/60 Nega tive -?-?-?-?-?-?-?-?-?-?-?-?- Negative 141 31 -?-?-?-?-?-?-?-?-?-?-?-?- -No Vb, LOF. G ood FM. 05/03/22 -?-?-?-?-?-?-?-?-?-?-?-?- 32w 5d 236 lb 118/62 Negative -?-?-?-?-?-?-?-?-?-?-?-?- Negative 140 33 -?-?-?-?-?-?-?-?-?-?-?-?- SM- no vb lof go od fm no regular ctx discussed carpal tunnel symptoms and feet swelling- supportive care 05/17/22 -?-?-?-?-?-?-?-?-?-?-?-?- 34w 5d 234 lb 124/66 -?-?-?-?-?-?-?-?-?-?-?-?- 135 35 -?-?-?-?-?-?-?-?-?-?-?-?- - [facility] was yesterday. She is doing very well considering her situation. No lof, vaginal bleeding, or dec fm. J- FOB was yesterda y. She is doing very well considering her situation. No lof, vaginal bleeding, or dec fm. plan for growth scan at 36 weeks. 05/31/22 -?-?-?-?-?-?-?-?-?-?-?-?- 36w 5d 244 lb 130/85 Negative -?-?-?-?-?-?-?-?-?-?-?-?- Negative 140 37 Cephalic 0 -?-?-?-?-?-?-?-?-?-?-?-?- JV- pt has some mild headaches and swelling. bp slightly elevated. will order PIH labs and prot:cr. baby is breech and she is unsure if she wants to have a version attempted if it comes to the point of needing early delivery 06/04/22 -?-?-?-?-?-?-?-?-?-?-?-?- 37w 2d 244 lb 128/87 Negative -?-?-?-?-?-?-?-?-?-?-?-?- Negative 140 38 Breech -?-?-?-?-?-?-?-?-?-?-?-?- SM- no vb lof go od fm no reuglar ctx seen for rule out preeclampsia over the weekend. now breech. ROS Constitutional Constitutional: Denies change in weight, fatigue, fever(s), poor appetite or weakness Eyes Eyes: Denies blurry vision, change in vision, seeing flashes or spots in vision ENT HEENT: Denies dizziness, headache(s), loss taste/smell or sore throat Cardiovascular Cardiovascular: Denies chest pain, dizziness, dyspnea, irregular heart rhythm, leg edema, palpitations, rapid heart rate or vomiting Respiratory/Chest Respiratory/Chest: Denies chest tightness, cough, dyspnea or breast pain Gastrointestinal Gastrointestinal: Denies abdominal pain, anorexia, constipation, cramping, diarrhea, hemorrhoids, vomiting or weight changes Genitourinary Genitourinary: Denies dysuria, flank pain, genital lesions, genital pain, urinary frequency or urinary urgency Musculoskeletal Musculoskeletal: Denies back pain, difficulty walking, joint pain, limited range of motion, muscle cramps or numbness Integumentary Integumentary: Denies lesions or unusual bruising Neurologic Neurologic: Denies abnormal movements, abnormal speech, dizziness, numbness, seizure-like activity or syncope Psychiatric Psychiatric: Denies anxiety, behavioral changes, change in appetite, change in libido, cognitive impairment, confusion, depression, difficulty concentrating, hallucinations or suicidal thoughts Endocrine Endocrinology: Denies excessive sweating, polydipsia or polyuria Hematologic/Lymphatic Hematologic/Lymphatic: Denies easy bleeding, easy bruising or lymphadenopathy Allergic/Immunologic Allergic/Immunologic: Denies itchy eyes, lip swelling, seasonal rhinorrhea, rhinitis, throat swelling, tongue swelling, eczemia, wheezing or asthma Vital Signs Vital Signs Vital Signs: 06/08/22 14:47 06/08/22 14:47 06/08/22 14:51 Temperature Temperature Source Temporal Pulse Rate 90 Respiratory Rate Blood Pressure 134/89 H Blood Pressure Mean BP Systolic 134 BP Diastolic 89 Blood Pressure Source Blood Pressure Position Blood Pressure Location Pulse Ox Oxygen Delivery Method 06/08/22 14:52 06/08/22 14:52 06/08/22 14:51 Temperature 98.4 F Temperature Source Pulse Rate 92 Respiratory Rate Blood Pressure Blood Pressure Mean BP Systolic BP Diastolic Blood Pressure Source Blood Pressure Position Blood Pressure Location Pulse Ox 99 Oxygen Delivery Method 06/08/22 15:03 06/08/22 15:03 06/08/22 15:17 Temperature Temperature Source Pulse Rate 83 Respiratory Rate Blood Pressure 136/83 H 144/88 H Blood Pressure Mean BP Systolic 136 144 BP Diastolic 83 88 Blood Pressure Source Blood Pressure Position Blood Pressure Location Pulse Ox Oxygen Delivery Method 06/08/22 15:17 06/08/22 15:32 06/08/22 15:32 Temperature Temperature Source Pulse Rate 85 86 Respiratory Rate Blood Pressure 135/82 H Blood Pressure Mean BP Systolic 135 BP Diastolic 82 Blood Pressure Source Blood Pressure Position Blood Pressure Location Pulse Ox Oxygen Delivery Method 06/08/22 15:47 06/08/22 15:47 06/08/22 16:04 Temperature Temperature Source Pulse Rate 88 Respiratory Rate Blood Pressure 136/83 H 145/81 H Blood Pressure Mean BP Systolic 136 145 BP Diastolic 83 81 Blood Pressure Source Blood Pressure Position Blood Pressure Location Pulse Ox Oxygen Delivery Method 06/08/22 16:04 06/08/22 16:18 06/08/22 16:18 Temperature Temperature Source Pulse Rate 97 86 Respiratory Rate Blood Pressure 151/93 H Blood Pressure Mean BP Systolic 151 BP Diastolic 93 Blood Pressure Source Blood Pressure Position Blood Pressure Location Pulse Ox Oxygen Delivery Method 06/08/22 16:38 06/08/22 16:38 06/08/22 17:53 Temperature Temperature Source Pulse Rate 96 Respiratory Rate Blood Pressure 146/90 H 138/92 H Blood Pressure Mean BP Systolic 146 138 BP Diastolic 90 92 Blood Pressure Source Blood Pressure Position Blood Pressure Location Pulse Ox Oxygen Delivery Method 06/08/22 17:53 06/08/22 18:55 06/08/22 18:55 Temperature Temperature Source Pulse Rate 86 91 Respiratory Rate Blood Pressure 127/76 H Blood Pressure Mean BP Systolic 127 BP Diastolic 76 Blood Pressure Source Blood Pressure Position Blood Pressure Location Pulse Ox Oxygen Delivery Method 06/08/22 18:55 06/08/22 18:55 06/08/22 18:55 Temperature Temperature Source Temporal Pulse Rate Respiratory Rate Blood Pressure 127/76 H Blood Pressure Mean BP Systolic 127 BP Diastolic 76 Blood Pressure Source Blood Pressure Position Blood Pressure Location Pulse Ox 99 Oxygen Delivery Method 06/08/22 18:55 06/08/22 18:55 06/08/22 17:30 Temperature 97.9 F 97.6 F L Temperature Source Temporal Pulse Rate 86 96 Respiratory Rate 16 Blood Pressure 146/90 H Blood Pressure Mean 108 BP Systolic BP Diastolic Blood Pressure Source Monitor Blood Pressure Position Semi-Fowlers Blood Pressure Location Left Arm Pulse Ox 98 Oxygen Delivery Method Room Air Weight Weight: 245 lb 5.992 oz Body Mass Index (BMI) 42.1 Physical Exam Const alert, oriented x3, no apparent distress and healthy appearing General Appearance: cooperative; Negative for anxious HEENT normocephalic Face and Sinus: normal facial exam Eyes EOMs intact bilaterally and no scleral icterus General Eye: normal appearance of both eyes Neck full ROM and supple Lymph Lymphatic: no lymphadenopathy noted Chest Chest: abnormal inspection of the chest Resp normal respiratory effort Effort and Inspection: able to speak in complete sentences Cardio regular rate GI soft to palpation and non-tender Inspection: gravid Palpation: soft; Negative for tender external exam normal Back/Spine no CVA tenderness Extremity normal to inspection, full ROM and no clubbing, cyanosis or edema General Extremity: Negative for calf tenderness or edema Skin Lesions: no lesions Rashes: no rashes Psych mental status grossly normal Labs Labs Labs: Blood Type A POSITIVE Antibody Screen NEGATIVE Hct 33.4 % (37-47) L Hgb 10.6 g/dL (12.0-15.0) L Obstetrics US Syphilis Total Ab Non-reactive Rubella IgG Antibody Reactive (Nonreactive) Hep Bs Antigen Non-Reactive (Nonreactive) Chlamydia DNA (GEOFFREY) Negative (Negative) Neisseria gonorrhoeae DNA (GEOFFREY) Negative (Negative) HIV 1&2 Antibody Non-Reactive (Nonreactive) Glucose 1 Hr 50 gm 101 mg/dL (70-140) Rhogam given: No Assessment & Plan (1) Sterilization: COMMENT: laparoscopic bilateral salpingectomy 10/10/21-neg test at surgery. Was <2wk at surgery. (2) Short interval between pregnancies affecting , antepartum: COMMENT: del 06/30/21. (3) Supervision of high risk , antepartum: COMMENT: PRR [place] 06/23/22 girl/Shikha PC:Keith Berman. Spouse: Suresh (4) : QUALIFIERS: Weeks of gestation: 37 weeks Qualified Code(s): Z3A.37 - 37 weeks gestation of COMMENT: GBS neg. NIPT low risk. declined carrier and ntd screen. (5) Anxiety: COMMENT: starting zoloft 12/20/21; increased 04/05/22; 04/17/22 stable (6) History of shoulder dystocia: COMMENT: `none with 7#13, present with 8#11. plan 36 week growth US to determine route and timing of delivery. 32 week US nl growth, 05/31 nl growth (7) Anemia: COMMENT: add FE (8) Breech presentation: COMMENT: declines ECV. plan LTCS 39. Scheduled for 06/19 @ 12 with SM (9) Obesity: COMMENT: nl 1 tm GCT. encouraged healthy weight gain. (10) Breech presentation: PLAN: Plan plan for primary section for breech presentation, 37 weeks 6 days, preeclampsia
[2022-06-08] MEDS: Cefazolin 2 GM in 0.9% Normal Saline 100 ML IV (19:28)
--- NOTE | 2022-06-08 19:30 | DCINST_ITS ---
Discharge Instructions Diet Discharge Diet: No restrictions Activity Discharge Activity: May Not Drive (for 2 weeks or while taking narcotic pain medications.), May Shower and May Take a Tub Bath (in 7 days.) May resume sexual activity in: 4-6 weeks Weight Bearing Status: Full weight bearing Lifting Restrictions: 20 pounds Dressing / Incision Call your doctor if your incision/area has: Continuous Slow Oozing, Sudden Increased Bleeding, Increased Pain/ Swelling, Increased Redness and Foul Smelling Discharge Call your doctor if you observe: Fever of 101 or Higher and Using more than 1 pad per hour Suture Line Care: Avoid Pulling/Pushing and Avoid Pinching/Bending Cleanse incision/area with: Soap & Water and Keep Dressing Clean & Dry Follow Up Care Please Follow Up With: Lizz Kulkarni DO When: Call [phone] to make an appointment for an incision check in 1-2 weeks. Test Results: Test results from this visit will be discussed in further detail at your follow- up appointment, if applicable. Discharge Plan Admission Admit Date/Time: 06/08/22 16:35 Primary Reason for Your Visit: section Attending Provider: Lizz Kulkarni Primary Care Provider: Evelina Tucker NP Discharge Orders/Prescriptions Prescriptions: New oxycodone-acetaminophen [Percocet] 5-325 mg tablet 1 tab PO Q4H PRN (Reason: pain) 7 Days Qty: 20 0RF ibuprofen 600 mg tablet 600 mg PO Q6H PRN (Reason: pain) 7 Days Qty: 30 0RF Continued sertraline 100 mg tablet 100 mg PO DAILY potassium chloride 20 mEq tablet,ER particles/crystals 20 meq PO ONCE hydroxyzine pamoate [Vistaril] 50 mg capsule 50 mg PO Q6H PRN (Reason: anxiety) Qty: 90 2RF Referrals / Follow Up: Evelina Tucker NP, [employer] [Primary Care Provider] - Disposition Disposition (needs filled in before D/C Order can be placed): Home, Self Care
--- NOTE | 2022-06-08 20:21 | OP.PCM_ITS ---
Assessment & Plan (1) Breech presentation: (2) Sterilization: COMMENT: laparoscopic bilateral salpingectomy 10/10/21-neg test at surgery. Was <2wk at surgery. (3) Short interval between pregnancies affecting , antepartum: COMMENT: del 06/30/21. (4) Supervision of high risk , antepartum: COMMENT: PRR [place] 06/23/22 girl/Shikha PC:Antonella Keith. Spouse: Suresh (5) : QUALIFIERS: Weeks of gestation: 37 weeks Qualified Code(s): Z3A.37 - 37 weeks gestation of COMMENT: GBS neg. NIPT low risk. declined carrier and ntd screen. (6) Anxiety: COMMENT: starting zoloft 12/20/21; increased 04/05/22; 04/17/22 stable (7) History of shoulder dystocia: COMMENT: `none with 7#13, present with 8#11. plan 36 week growth US to determine route and timing of delivery. 32 week US nl growth, 05/31 nl growth (8) Anemia: COMMENT: add FE (9) Breech presentation: COMMENT: declines ECV. plan LTCS 39. Scheduled for 06/19 @ 12 with SM (10) Obesity: COMMENT: nl 1 tm GCT. encouraged healthy weight gain. Maternal Data Information [place] Calculator Estimated Delivery Date Method Current WG Current Estimate 06/23/22 Ultrasound #1 37w 6d Other Estimates 06/14/22 LMP (Certain) 39w 1d Details Operative Information Date of Procedure: 06/08/22 Pre-Operative Diagnosis: @ 37 weeks 6 days, breech presentation, preeclampsia Post-Operative Diagnosis: @ 37 weeks 6 days, breech presentation, preeclampsia Classification: Scheduled Procedure Type: low transverse Type of Anesthesia: Spinal Antibiotic Given: Ancef 2 grams IV x1 Estimated Blood Loss: 700cc Findings Description of Procedure: The patient is a 26 y/o , breech presentation, with preeclampsia for primary . Spinal anesthesia was placed without difficulty. Yee catheter was placed. The patient was placed in the dorsal supine position with leftward tilt. Patient was prepped and draped in the normal sterile fashion. Pfannenstiel skin incision was made with the scalpel and carried through to the underlying layer of fascia with the scalpel. Fascia was nicked in the midline and the incision extended laterally. The rectus bellies were dissected off superiorly and inferiorly with out complication both sharply and bluntly. The peritoneum was entered digitally. The incision was stretched and a low transverse uterine incision was made with the scalpel. The 's head was delivered atraumatically followed by the anterior and posterior shoulders without complication the rest of the infant delivered. The cord was clamped and cut and the was handed off to awaiting nurse. The placenta was delivered spontaneously immediately following and was noted to be intact and have a three- vessel cord. The uterus was exteriorized cleared of all clots and debris, and the incision was closed in a double layer closure using #1Vicryl and #1 Monocryl. The ovaries were noted to be within normal limits. The fallopian tubes noted to be surgically absent. The uterus was returned to the maternal abdomen and gutters were cleared of all clots and debris. The peritoneum was closed with 3-0 Monocryl in a running fashion. Gloves were changed prior to fascial closure. Fascia was closed with 0 PDS in a running fashion. Subcutaneous tissue was copiously irrigated and the skin was closed with 3-0 Monocryl in a subcuticular fashion. Mepilex dressing was applied without complication. Patient was taken to recovery in stable condition. It was discussed with the patient that based on the clinical information obtained during this encounter, combined with her history, at this time I would recommend [ ] for future deliveries if further pregnancies are desired. Presentation: Positive for Complete Breech Amniotic Membrane Rupture Type: Artificial Amniotic Fluid Description: Clear Placental Delivery Description: Manual Removal Placenta Disposition: [facility] Cord Vessel Description: 3 Vessels Cord Entanglement: None A Gender: Female (1 minute): 9 (5 minute): 9 Delayed Cord Clamping: Yes Complications Risks of Surgery Discussed w/Patient: Bleeding, Anesthesia Risks, Infection, Need for Future C-Sections, Failure Rate of 1 to 2% and Injury to surrounding structure(s) including bowel and bladder Complications: none Multi Select Codes Urinary/Genital Urinary/Genital CPT Codes: 48946 delivery+PP Care([facility])
[2022-06-08] MEDS: Oxytocin 30 units/NS 500 ml 30 UNITS/500 ML IV.SOLN 167 UNITS IV (20:36)
--- NOTE | 2022-06-08 21:00 | NURSING ---
bedside report given to Gino Ricardo RN and Humberto Mcbride RN who are assuming care of pt at this time
[2022-06-08] MEDS: Ketorolac 30 MG/ML Syringe IV (21:37)
[2022-06-08] MEDS: AMOXICILLIN 500 MG CAPSULE PO (22:00)
[2022-06-09] VITALS (17 sets, daily range): BP systolic 107–130; BP diastolic 59–82; PULSE 77–107; RESP 14–18; TEMP 36.1–36.8; O2SAT 97–99
--- NOTE | 2022-06-09 02:03 | NURSING ---
0145 is a duramorph check. Pt alert and communicating, up for first time post surgery. Yee cath out at 0145 and IV saline locked.
--- NOTE | 2022-06-09 02:43 | NURSING ---
0240 duramorph check with vital signs and fundus check. Pt alert and oriented.
[2022-06-09] MEDS: Ketorolac 30 MG/ML Syringe IV ×3 (03:41→15:44)
[2022-06-09] MEDS: 0.9% Saline Lock 10 ML Syringe IV ×3 (03:42→15:51)
--- NOTE | 2022-06-09 04:42 | NURSING ---
0340 duramorph complete. Pt alert and oriented and up independently.
[2022-06-09 05:53] LABS: Hematocrit 28.2 % (37-47); Hemoglobin 8.9 g/dL (12.0-15.0); Mean Corp Hgb Conc 31.6 g/dL (32-36); Mean Corpuscular Hgb 27.1 pg (27.0-32.0); Mean Platelet Vol. 11.3 fl (6.2-12.0); Platelet Count 202 K/mm3 (150-450); RBC Distribution Width SD 43.8 fl (35.1-43.9); Red Blood Count 3.28 M/mm3 (4.2-5.4); White Blood Count 13.6 K/mm3 (4.4-11.0)
[2022-06-09] MEDS: Acetaminophen 500 MG Tablet 1000 MG PO ×4 (05:57→18:06)
--- NOTE | 2022-06-09 06:01 | NURSING ---
All charting done by Loren, RN reviewed by Jasper RN
--- NOTE | 2022-06-09 08:00 | PCM.PN.OB ---
Subjective Subjective Patient is laying in bed comfortably without complaints. She states that she slept on an off during the night. Lochia is mild and pain is minimal. Objective Data Objective Data Vital Signs: Vital Signs Temp Pulse Resp BP Pulse Ox O2 Del Method 97.4 F L 84 15 113/59 L 98 Room Air 06/09/22 04:38 06/09/22 06:40 06/09/22 06:40 06/09/22 04:38 06/09/22 06:40 06/09/22 06:40 Oxygen Delivery Method Room Air Weight: 245 lb 5.992 oz Body Mass Index (BMI) 42.1 Intake & Output: Intake and Output for Last 24 Hours 06/07/22 06/08/22 06/09/22 23:59 23:59 23:59 Intake Total 2.77 / 2021.77 466.67 / 466.67 Output Total 200 / 200 700 / 700 Balance 1822.77 / 1822.77 -233.33 / -233.33 Lab / Micro Data Result Diagrams: 06/09/22 05:45 06/08/22 15:30 Labs: Laboratory Results - last 24 hr 06/08/22 15:30: WBC 11.5 H, RBC 3.91 L, Hgb 10.6 L, Hct 33.4 L, MCV 85.4, MCH 27.1, MCHC 31.7 L, RDW Std Deviation 42.7, RDW Coeff of Alicia 13.9, Plt Count 248, MPV 11.4, Immature Gran % (Auto) 0.900, Neut % (Auto) 74.8 H, Lymph % (Auto) 18.3 L, Gallia % (Auto) 4.4, Eos % (Auto) 1.3, Baso % (Auto) 0.3, Absolute Neuts (auto) 8.8 H, Absolute Lymphs (auto) 2.14, Nucleated RBC % 0 06/08/22 15:30: U Random Total Protein 29.0 H, Urine Creatinine 82.40, Protein/Creatinin Ratio 352 H 06/08/22 15:30: Creatinine 0.65, Estim Creat Clear Calc 115.24, Est GFR (MDRD) Af Amer 142, Est GFR (MDRD) Non-Af 117, Uric Acid 5.4, AST 15, ALT 18 06/08/22 15:30: WBC Cancelled, Corrected WBC Cancelled, RBC Cancelled, Hgb Cancelled, Hct Cancelled, MCV Cancelled, MCH Cancelled, MCHC Cancelled, RDW Std Deviation Cancelled, RDW Coeff of Alicia Cancelled, Plt Count Cancelled, MPV Cancelled, Immature Gran % (Auto) Cancelled, Neut % (Auto) Cancelled, Lymph % (Auto) Cancelled, Gallia % (Auto) Cancelled, Eos % (Auto) Cancelled, Baso % (Auto) Cancelled, Absolute Neuts (auto) Cancelled, Absolute Lymphs (auto) Cancelled, Total Counted Cancelled, Neutrophils % (Manual) Cancelled, Band Neutrophils % Cancelled, Lymphocytes % (Manual) Cancelled, Monocytes % (Manual) Cancelled, Eosinophils % (Manual) Cancelled, Basophils % (Manual) Cancelled, Metamyelocytes % Cancelled, Myelocytes % Cancelled, Promyelocytes % Cancelled, Blast Cells % Cancelled, Plasma Cell % (Manual) Cancelled, Other Cells % Cancelled, Nucleated RBC % Cancelled, Nucleated RBCs/100 WBC Cancelled, Differential Comment Cancelled, Diff Path Review Cancelled, Hypersegmented Neuts Cancelled, Atypical Lymphocytes Cancelled, Reactive Lymphocytes Cancelled, Smudge Cells Cancelled, Toxic Granulation Cancelled, Toxic Vacuolation Cancelled, Dohle Bodies Cancelled, Lorenzo Rods Cancelled, Platelet Estimate Cancelled, Plt Morphology Comment Cancelled, RBC Morphology Cancelled, Polychromasia Cancelled, Hypochromasia Cancelled, Poikilocytosis Cancelled, Basophilic Stippling Cancelled, Anisocytosis Cancelled, Microcytosis Cancelled, Macrocytosis Cancelled, Spherocytes Cancelled, Sickle Cells Cancelled, Target Cells Cancelled, Tear Drop Cells Cancelled, Ovalocytes Cancelled, Stomatocytes Cancelled, [place] Bodies Cancelled, Indu Cells Cancelled, Bite Cells Cancelled, Crenated Cell Cancelled, Acanthocytes (Spur) Cancelled, Rouleaux Cancelled, Schistocytes Cancelled 06/08/22 15:30: Blood Type A POSITIVE, Antibody Screen NEGATIVE 06/08/22 15:30: Potassium 3.4 L 06/09/22 05:45: WBC 13.6 H, RBC 3.28 L, Hgb 8.9 L, Hct 28.2 L, MCV 86.0, MCH 27.1, MCHC 31.6 L, RDW Std Deviation 43.8, RDW Coeff of Alicia 14.0, Plt Count 202, MPV 11.3 Micro: Microbiology 06/08/22 17:50 Nasal Secretion SARS-CoV-2 Antigen (Rapid) - Final ROS Constitutional Constitutional: Reports systems reviewed and no addt'l complaints, except as documented Cardiovascular Cardiovascular: Denies chest pain, dizziness, dyspnea or irregular heart rhythm Respiratory/Chest Respiratory/Chest: Denies cough, pain on inspiration or shortness of breath at rest Gastrointestinal Gastrointestinal: Denies abdominal pain, nausea or vomiting Genitourinary Genitourinary: Denies burning urination Musculoskeletal Musculoskeletal: Denies muscle cramps, muscle spasms or muscle weakness Neurologic Neurologic: Denies confusion, dizziness, headache(s) or lack of coordination Psychiatric Psychiatric: Denies anxiety, behavioral changes or depression Physical Exam HEENT normocephalic Resp normal respiratory effort and normal air movement GI soft to palpation, non-tender and non-distended Rectal Exam: other Other Details: Incision is clean, dry, and intact no CVA tenderness Extremity normal to inspection General Extremity: edema bilateral (trace ) Assessment & Plan (1) Status post section: COMMENT: breech pre-e, bb girl Shikha 06/08/22- JV (2) Breech presentation: PLAN: Plan s/p LTCS PPD # 1 1. routine post care 2. breast feeding- support given 3. rh positive 4. rubella immune
[2022-06-09] MEDS: Enoxaparin 40 MG/0.4 ML Syringe SC (08:18)
--- NOTE | 2022-06-09 09:21 | CASEMGMT ---
Social Work Assessment Labor and Delivery Unit Date/Time of Referral: 06/09/22, 5:49am Referred By: Dr. Kulkarni Date/Time of Intervention: 06/09/22, 8:30am Reason for Referral: Grief/Loss/Bereavement, loss of /FOB in April 2022, 2 small children at home History obtained from: MOB, MOB's mother also present Household composition: MOB, 3 yr old Antonella, 11 month old Sergiot and now baby Javier. MOB and children staying w/MOB's parents at present, they live [place] the [address] from one another in a mobile home [place]. MOB and FOB had been together 11 years, 5 Parent/Guardian Status: MOB is guardian of children Medical History: MOB, preeclampsia, anxiety, PPD, Asthma, obesity, infertility. Baby Javier: Born 06/08/22 at 19:52, 3.55kg, Apgars 8 and 9 at one and five minutes [employer]: Dr. Mo Educational Status: MOB graduated high school Financial concerns: BERYL reports to have no financial concerns at this time. She had worked at a [employer] and quit a couple of months after having Sergiot. She recently started working 15 hours/week at [employer]. She has not worked in the last four weeks since her . She is not certain about going back to work at this time. supplies: They have all needed supplies including car seat, bassinet, bottles, formula, diapers, clothing wipes. MOB plans to breast feed. MOB states that 's company provided some supplies. Additionally, [employer] helped with supplies Childcare/Caregivers: MOB, BERYL's parents, other family and friends, in laws, 's twin brother and his . Transportation: BERYL has 2 vehicles Programs/Agencies involved: [employer], food stamps, Medicaid, [employer] Behavioral Health Issues: Substance abuse history: None as per MOB. Negative tox screen from 11/22/21. No tox screens done on MOB or baby. Mental Health: MOB with history of both anxiety and PPD. BERYL explains had PPD after the of [place]. She got her tubes tied and found out afterward she was . She was having a difficult time with this initially. 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 She did eventually start working at [employer] 15 hours per week. She was on Zoloft but did stop taking it the last month or so due to memory issues. She plans to start taking it again, she brought it with her. PAVAN advised pt to not take it on her own but let the RN here know she wants to take it again, the doctor can prescribe it. Pt states understanding. (SW did let RN know and it is already scheduled for this morning). MOB states that her 's work gave her a recommendation to start counseling for both her and her 3 year old at [facility], she plans to follow through with this. SW did also give MOB the number to [facility] for bereavement support. Family/Social Stressors: Suresh just 4 weeks ago in a lili accident. Also, MOB's 3 year old just started school. Support Systems: MOB's parents, FOB's parents, FOB's extended family, MOB's cousins and friends, [employer]. MOB also recently connected with another of four young children. Depression and Anxiety/Shaken Baby/Safe Sleeping/Help Me Grow/Mental Health Resources/Crisis Line/[facility] Resources: SW gave information to MOB on all of these topics and reviewed them, in particular information on PPD, mental health resources and the crisis line. Assessment: PAVAN spoke w/MOB at length about the recent loss of her 4 weeks ago. MOB tearful at times. MOB, though initially was uncertain about this , is very grateful to have Javier. She believes Javier was sent to them to help distract them and keep them busy in light of the recent loss of her . We spoke about how things have been the last few weeks, and how difficult they may be going forward. SW encouraged MOB to let people help her. She is staying w/her parents at present, she states she is not ready to go home. She does have a strong support system. SW encouraged MOB to get involved w/counseling, to speak w/her OB about symptoms. SW did state to pt that Post may be difficult. MOB states understanding. MOB spoke also about explaining things to her 3 year old and how it can be difficult, yet her 3 year old seems to be okay. We spoke about how kids cope and what to expect with this. MOB does state that she thinks counseling will help her and will help her to know how to speak w/her daughter. PAVAN confirmed this and acknowledged that getting into counseling may be helpful. Over, BERYL is tearful at moments, appropriately so. She also is focusing on the positives, and the good parts of their lives together before FOB . She spoke about the last two days, and how they went, and was grateful that on the last day of his life he was able to communicate with them. Support offered to MOB, and to BERYL's mother as well. Baby on the bed while we were talking, MOB attentive to baby. No concerns for homegoing at this time other than BERYL's continued grieving. Even with all that is going on, BERYL seems able to care for her baby, and has a lot of support in place to help her. Plan: Baby will go home with BERYL at discharge. No further needs anticipated. SW remains available for any additional support and resources. JUAN Lim
[2022-06-09] MEDS: Senna/Docusate Sodium 1 Tablet PO (09:49)
[2022-06-09] MEDS: Sertraline 100 MG Tablet PO (09:49)
[2022-06-09] MEDS: AMOXICILLIN 500 MG CAPSULE PO ×2 (09:49→22:03)
[2022-06-09] MEDS: Ibuprofen 600 MG Tablet PO (22:03)
[2022-06-10] MEDS: Acetaminophen 500 MG Tablet 1000 MG PO ×2 (00:04→06:02)
[2022-06-10 01:14] VITALS: BP 138/85; PULSE 80; RESP 15; TEMP 36.1
[2022-06-10] MEDS: Ibuprofen 600 MG Tablet PO ×2 (03:47→08:38)
[2022-06-10 08:49] VITALS: BP 136/78; PULSE 77; RESP 16; TEMP 36.2; O2SAT 99
--- NOTE | 2022-06-10 10:01 | PCM.PN.OB ---
Objective Data Objective Data Vital Signs: Vital Signs Temp Pulse Resp BP Pulse Ox O2 Del Method 97.1 F L 77 16 136/78 H 99 Room Air 06/10/22 08:49 06/10/22 08:49 06/10/22 08:49 06/10/22 08:49 06/10/22 08:49 06/10/22 08:49 Oxygen Delivery Method Room Air Weight: 245 lb 5.992 oz Body Mass Index (BMI) 42.1 Intake & Output: Intake and Output for Last 24 Hours 06/08/22 06/09/22 06/10/22 23:59 23:59 23:59 Intake Total 2021.77 / 466.67 / 466.67 Output Total 200 / 200 1400 / 1400 Balance 1822.77 / 1822.77 -933.33 / -933.33 Lab / Micro Data Result Diagrams: 06/09/22 05:45 06/08/22 15:30 Micro: Microbiology 06/08/22 17:50 Nasal Secretion SARS-CoV-2 Antigen (Rapid) - Final ROS Constitutional Constitutional: Reports systems reviewed and no addt'l complaints, except as documented; Denies change in weight, fatigue, fever(s), poor appetite or weakness Eyes Eyes: Denies blurry vision, change in vision, seeing flashes or spots in vision ENT HEENT: Denies dizziness, headache(s), loss taste/smell or sore throat Cardiovascular Cardiovascular: Denies chest pain, dizziness, dyspnea, irregular heart rhythm, leg edema, palpitations, rapid heart rate or vomiting Respiratory/Chest Respiratory/Chest: Denies chest tightness, cough, dyspnea, pain on inspiration, shortness of breath at rest or breast pain Gastrointestinal Gastrointestinal: Denies abdominal pain, anorexia, constipation, cramping, diarrhea, hemorrhoids, nausea, vomiting or weight changes Genitourinary Genitourinary: Denies burning urination, dysuria, flank pain, genital lesions, genital pain, urinary frequency or urinary urgency Musculoskeletal Musculoskeletal: Denies back pain, difficulty walking, joint pain, limited range of motion, muscle cramps, muscle spasms, muscle weakness or numbness Integumentary Integumentary: Denies lesions or unusual bruising Neurologic Neurologic: Denies abnormal movements, abnormal speech, confusion, dizziness, headache(s), lack of coordination, numbness, seizure-like activity or syncope Psychiatric Psychiatric: Denies anxiety, behavioral changes, change in appetite, change in libido, cognitive impairment, confusion, depression, difficulty concentrating, hallucinations or suicidal thoughts Endocrine Endocrinology: Denies excessive sweating, polydipsia or polyuria Hematologic/Lymphatic Hematologic/Lymphatic: Denies easy bleeding, easy bruising or lymphadenopathy Allergic/Immunologic Allergic/Immunologic: Denies itchy eyes, lip swelling, seasonal rhinorrhea, rhinitis, throat swelling, tongue swelling, eczemia, wheezing or asthma Physical Exam Const alert, oriented x3, no apparent distress and healthy appearing General Appearance: cooperative; Negative for anxious HEENT normocephalic Eyes EOMs intact bilaterally and no scleral icterus General Eye: normal appearance of both eyes Neck full ROM and supple Lymph Lymphatic: no lymphadenopathy noted Chest Chest: abnormal inspection of the chest Resp normal respiratory effort and normal air movement Effort and Inspection: able to speak in complete sentences Cardio regular rate GI soft to palpation, non-tender and non-distended Inspection: gravid Palpation: soft; Negative for tender Rectal Exam: other Other Details: Incision is clean, dry, and intact no CVA tenderness and external exam normal Back/Spine no CVA tenderness Extremity normal to inspection, full ROM and no clubbing, cyanosis or edema General Extremity: edema bilateral (trace ); Negative for calf tenderness Skin Lesions: no lesions Rashes: no rashes Psych mental status grossly normal Assessment & Plan (1) Status post section: COMMENT: breech pre-e, bb girl Shikha 06/08/22- JV (2) Breech presentation: PLAN: Plan s/p LTCS PPD # 2 1. routine post care 2. breast feeding- support given 3. rh positive 4. rubella immune 5. dc to home today
[2022-06-10] MEDS: Sertraline 100 MG Tablet PO (10:37)
[2022-06-10] MEDS: Senna/Docusate Sodium 1 Tablet PO (10:37)
[2022-06-10] MEDS: Enoxaparin 40 MG/0.4 ML Syringe SC (10:37)
[2022-06-10] MEDS: AMOXICILLIN 500 MG CAPSULE PO (10:37)
== END 2022-06-10 11:25 | disposition home or self-care (01) | DRG 540 ==
LOC: WPOUT 16:35 → WP 16:36
PROVIDERS: Admitting Provider Obstetrics & Gynecology; PCP Nurse Practitioner Family; Visit Provider Obstetrics & Gynecology
DX: O32.1XX0 Maternal care for breech presentation, not applicable or unspecified (principal); O14.94 Unspecified pre-eclampsia, complicating childbirth; F41.9 Anxiety disorder, unspecified; O99.214 Obesity complicating childbirth; O99.02 Anemia complicating childbirth; Z37.0 Single live birth; O99.344 Other mental disorders complicating childbirth; Z3A.37 37 weeks gestation of pregnancy; Z79.899 Other long term (current) drug therapy; Z87.59 Personal history of other complications of pregnancy, childbirth and the puerperium; Z87.891 Personal history of nicotine dependence
CPT/HCPCS: 59025; 59050; 76815; 82565; 82570; 84132; 84156; 84450; 84460; 84550; 85025; 85027; 86850; 86900; 86901; 87426; 99218; 99251; J7120; A4216; G0378; G0463

== ENCOUNTER → 2022-11-13 | Outpatient (CLI) | payer MEDICAID, SELFPAY ==
[2022-11-16 03:07] LABS: Chlamydia By Nucleic Acid AMP Negative (Negative)
[2022-11-16 19:59] LABS: Gonococcus By Nucleic Acid AMP Negative (Negative)
== END | disposition home or self-care (01) ==
PROVIDERS: PCP Nurse Practitioner Family; Referring Provider Nurse Practitioner Women's Health; Visit Provider Nurse Practitioner Women's Health
DX: Z11.3 Encounter for screening for infections with a predominantly sexual mode of transmission (principal)
CPT/HCPCS: 87491; 87591

== ENCOUNTER → 2022-11-20 | Outpatient (CLI) | payer MEDICAID, SELFPAY ==
--- NOTE | 2022-11-20 15:01 | US_ITS ---
EXAM: US PELVIS TRANSABDOMINAL AND TRANSVAGINAL, COMPLETE CLINICAL INDICATION: pelvic pain TECHNIQUE: Transabdominal and transvaginal pelvic ultrasound was performed with grayscale and color Doppler imaging. Transvaginal imaging was used for better evaluation of the endometrium and adnexa. This report was created using [employer] technology. COMPARISON: None. FINDINGS: UTERUS/CERVIX: Uterus measures 8.7 x 4.4 x 5.4 cm. The endometrium measures 7 mm. Anteverted. There is no uterine mass. RIGHT OVARY: The right ovary measures 2.9 x 2.2 x 2.6 cm, 9 mL in volume. There are multiple anechoic structures in the ovaries which may represent polycystic ovaries. Blood flow is present in the right ovary. LEFT OVARY: The left ovary measures 3.4 x 2.2 x 2.5 cm, 9.7 mL in volume. FREE FLUID: None. BLADDER: Unremarkable as visualized. Wall is normal thickness for degree of distention. US/Pelvic (Non ) IMPRESSION: Multiple small uniform anechoic structures in both ovaries possibly representing polycystic ovary although both ovaries are less than 10 mL in volume. If indicated further evaluation with MRI may be beneficial. No other abnormalities are identified. Electronically Signed: Kulwant Ridley MD at 16:38 EST ,
== END | disposition home or self-care (01) ==
PROVIDERS: PCP Nurse Practitioner Family; Visit Provider Nurse Practitioner Women's Health
DX: R10.2 Pelvic and perineal pain (principal)
CPT/HCPCS: 76830; 76856

== ENCOUNTER 2024-02-02 11:03 | Emergency (ER) | payer MEDICAID, SELFPAY ==
[2024-02-02 11:03] VITALS: BP 125/66; PULSE 73; RESP 18; TEMP 36.4; O2SAT 98; BMI 33.7
== END 2024-02-02 12:34 | disposition left against medical advice (07) ==
LOC: ED 13:44
PROVIDERS: PCP Nurse Practitioner Family
DX: Z53.21 Procedure and treatment not carried out due to patient leaving prior to being seen by health care provider (principal)